=== PATIENT | female | born 1975 | race Caucasian/White ===

== ENCOUNTER → 2020-12-05 08:57 | Outpatient (CLI) | payer OTHER, SELFPAY ==
--- NOTE | ~2020-12-05 | US_ITS ---
EXAMINATION: US right upper quadrant DATE: 12/05/2020 09:28 INDICATION: Abnormal liver function tests. TECHNIQUE: Multiple grayscale and Doppler ultrasound images of the abdomen were obtained. COMPARISON: None FINDINGS: The visualized portions of the head and body of the pancreas are normal. The liver is jonathan l without focal lesion. No liver surface nodularity. There is normal flow in main portal vein. The ga llbladder is absent. The common duct is normal and measures 5 mm. IMPRESSION: 1. Normal right upper quadrant ultrasound status post cholecystectomy. Reviewed, dictated and finalized at location A.
== END ==
PROVIDERS: PCP Internal Medicine; Visit Provider Internal Medicine
DX: R74.8 Abnormal levels of other serum enzymes (principal); Z90.49 Acquired absence of other specified parts of digestive tract
CPT/HCPCS: 76705

== ENCOUNTER → 2020-12-12 12:13 | Outpatient (CLI) | payer OTHER, SELFPAY ==
--- NOTE | ~2020-12-12 | MM_ITS ---
EXAMINATION: MM screening suzanne BI w omar HISTORY: Screening mammogram TECHNIQUE: Craniocaudal and mediolateral oblique 3-D tomosynthesis images were obtained and synthetic 2-D images were generated. CAD analysis was submitted and interpreted. COMPARISON: No prior mammogram is available for comparison at this institution. BREAST PARENCHYMAL COMPOSITION: There are scattered areas of fibroglandular density. FINDINGS: There is no evidence of suspicious mass, calcification, or architectural distortion to sugg est malignancy in either breast. IMPRESSION: 1. No mammographic evidence of malignancy. 2. Recommend routine screening mammography in one year. BI-RADS Category 1: Negative Reviewed, dictated and finalized at location A.
== END ==
PROVIDERS: PCP Internal Medicine; Visit Provider Internal Medicine
DX: Z12.31 Encounter for screening mammogram for malignant neoplasm of breast (principal)
CPT/HCPCS: 77063; 77067

== ENCOUNTER → 2021-02-20 15:00 | Outpatient (CLI) | payer OTHER, SELFPAY ==
--- NOTE | ~2021-02-20 | US_ITS ---
EXAMINATION: US pelvic complete w TV EXAM DATE: 02/20/2021 15:23 INDICATION: Z30.431 - Encounter for routine checking of intrauterine ... TECHNIQUE: Pelvic transabdominal and transvaginal sonogram was performed. There are multiple graysca le and Doppler images available for interpretation. There is no prior study for comparison. FINDINGS: Uterus measures 6.4 x 3.4 x 4.0 cm, with IUD centrally located inside the endometrial cavi ty. Endometrial stripe measures 4 mm, within normal limits. There is no free pelvic fluid. Right adnexa: The ovary measures 3.7 x 3.7 x 3.6 cm, has anechoic cystic region measuring about 3 cm, likely the dominant follicle. Ovarian vascular flow confirmed. Left adnexa: The ovary is not identified. There is no adnexal mass. IMPRESSION: 1. IUD in expected position. Reviewed, dictated and finalized at location A.
== END ==
PROVIDERS: PCP Internal Medicine; Visit Provider Student in an Organized Health Care Education/Training Program
DX: Z30.431 Encounter for routine checking of intrauterine contraceptive device (principal)
CPT/HCPCS: 76830; 76856

== ENCOUNTER 2021-07-20 09:27 | Outpatient (CLI) | payer OTHER, SELFPAY ==
--- NOTE | ~2021-07-20 | MMUS_ITS ---
EXAMINATION: MM diagnostic suzanne RT w omar, US breast RT limited HISTORY: Palpable lump in the upper inner quadrant of the right breast TECHNIQUE: Craniocaudal, mediolateral, and mediolateral oblique 3-D tomosynthesis images of the right breast were performed and synthetic 2-D images were generated. CAD analysis was submitted and interp reted. High resolution limited right breast ultrasound was performed. COMPARISON: 12/12/2020 BREAST PARENCHYMAL COMPOSITION: There are scattered areas of fibroglandular density. FINDINGS: MAMMOGRAPHIC FINDINGS: There is no suspicious mass, calcification, or architectural distortion malignancy. There has be en no suspicious interval change. No mammographic correlate is identified for the reported palpable a bnormality of the right breast. ULTRASOUND: There is no evidence of focal abnormal solid or cystic mass in the vicinity of the reported palpable abnormality of concern. IMPRESSION: 1. No specific mammographic or sonographic correlate is identified for the reported palpable abnormal ity of concern. Further evaluation at this time should be based on clinical assessment. Continued fol low-up physical examination is recommended. 2. Recommend routine screening mammography. BI-RADS Category 1: Negative Reviewed, dictated and finalized at location A. IMPRESSION: 1. No specific mammographic or sonographic correlate is identified for the repo rted palpable abnormality of concern. Further evaluation at this time should be based on clinical assessment. Continued follow-up physical examination is aj mmended. 2. Recommend routine screening mammography. BI-RADS Category 1: Negative
== END 2021-07-20 09:28 ==
PROVIDERS: PCP Internal Medicine; Visit Provider Student in an Organized Health Care Education/Training Program
DX: N63.10 Unspecified lump in the right breast, unspecified quadrant (principal)
CPT/HCPCS: 76642; 77061; 77065; G0279

== ENCOUNTER → 2022-06-24 15:20 | Outpatient (CLI) | payer OTHER, SELFPAY ==
--- NOTE | ~2022-06-24 | XR_ITS ---
XR abdomen/kub 1V 06/24/2022 15:43 Indication: Urolithiasis Procedure: KUB Comparison: CT dated 06/24/2022 Findings: Kidneys are partially obscured by bowel content. No renal stones identified. Bowel gas faith yuval nonobstructive. Moderate colonic fecal loading. There is an IUD in the pelvis. No acute osseous a bnormality. Impression: 1: Nonobstructive bowel gas pattern. Reviewed, dictated and finalized at location L. INIST SUPERVISOR OUTSIDE Impression: 1: Nonobstructive bowel gas pattern.
--- NOTE | ~2022-06-24 | CT_ITS ---
EXAMINATION: CT abdomen pelvis wo con DATE: 06/24/2022 15:43 INDICATION: Urolithiasis TECHNIQUE: Computed tomography (CT) of the abdomen and pelvis was performed without intravenous contr ast. The dose-length product (DLP) was 1150.95 mGy-cm. Automated exposure control and iterative recon struction technique were employed. COMPARISON: None FINDINGS: The lung bases are clear. The heart size is normal. There is a moderate-sized sliding hiata l hernia containing ingested material. A large volume of ingested material is present in the stomach. The gallbladder is surgically absent. The liver, spleen, pancreas, and adrenal glands are normal. Th ere are two nonobstructing stones of the right kidney upper pole which measure up to 2 mm. There are three nonobstructing stones of the left kidney which measure up to 4 mm. No stones are present in the ureters or bladder. No hydronephrosis or hydroureter. No pathologically enlarged abdominal or pelvic lymph nodes are identified. No free intraperitoneal gas or evidence of bowel obstruction. There is a 6 cm cyst of the left ovary. There is a 3.4 cm cyst of the right ovary. An IUD is present in the lilian mehdi in expected position. There is moderate lumbar spondylosis at L5-S1. Also seen is moderate lower thoracic spondylosis with anterior wedging in the lower thoracic spine. There is a fat-containing umb ilical hernia. IMPRESSION: 1. Nonobstructing bilateral nephrolithiasis. 2. 6 cm simple cyst of the left ovary. Follow-up ultrasound in 12 months is recommended. 3. Moderate-sized sliding hiatal hernia. Reviewed, dictated and finalized at location F. PAPER COLUMNIST IMPRESSION: 1. Nonobstructing bilateral nephrolithiasis. 2. 6 cm simple cyst of the left ovary. Follow-up ultrasound in 12 months is rec ommended. 3. Moderate-sized sliding hiatal hernia.
== END ==
PROVIDERS: PCP Internal Medicine; Visit Provider Nurse Practitioner Adult Health
DX: N20.9 Urinary calculus, unspecified (principal); N83.202 Unspecified ovarian cyst, left side; K44.9 Diaphragmatic hernia without obstruction or gangrene
CPT/HCPCS: 74018; 74176

== ENCOUNTER 2023-09-05 09:27 | Outpatient (CLI) | payer MEDICAID, SELFPAY ==
--- NOTE | ~2023-09-05 | US_ITS ---
Pelvic ultrasound. Clinical History: Displacement IUD Technique: Realtime transabdominal and transvaginal scanning of the pelvis was performed. Color flow Doppler and Doppler spectral analysis were performed. Findings: The uterus is anteverted, and measures 8.3 x 3.7 x 4.6 cm. The endometrial stripe has a th ickness of 6 mm. IUD visualized in satisfactory position. No focal mass is identified. The right ovary measures 3.4 x 2.0 x 3.2 cm. No significant right ovarian or adnexal mass is seen. The left ovary measures 5.4 x 4.1 x 4.6 cm. No significant left ovarian or adnexal mass is seen. There is no evidence of free fluid in the cul de sac. Impression: IUD in satisfactory position. Reviewed, dictated and finalized at [facility]. Impression: IUD in satisfactory position.
== END 2023-09-05 09:28 ==
PROVIDERS: PCP Internal Medicine; Visit Provider Nurse Practitioner Obstetrics & Gynecology
DX: T83.32XA Displacement of intrauterine contraceptive device, initial encounter (principal); Y83.8 Other surgical procedures as the cause of abnormal reaction of the patient, or of later complication, without mention of misadventure at the time of the procedure
CPT/HCPCS: 76830; 76856

== ENCOUNTER 2024-08-24 10:54 | Outpatient (CLI) | payer BC, SELFPAY ==
--- NOTE | 2024-08-24 11:01 | ECG_ITS ---
Test Date: 2024-08-24 11:13:09 Measurements Intervals [place] Rate: 79 P: 25 [place]: 191 QRS: 13 QRSD: 82 T: -8 QT: 451 QTc: 520 Interpretive Statements ATRILA FLUTTER LOW QRS VOLTAGE IN PRECORDIAL LEADS [QRS DEFLECTION < 1.0 mV IN CHEST LEADS] MODERATE T-WAVE ABNORMALITY, CONSIDER ANTEROLATERAL ISCHEMIA [-0.1+ mV T-WAVE IN V3-V6] MODERATE T-WAVE ABNORMALITY, CONSIDER INFERIOR ISCHEMIA [-0.1+ mV T-WAVE IN II/aVF] No previous ECG available for comparison Electronically Signed On 08-24-2024 19:11:07 CDT by Junior Boyd
--- OUTSIDE RECORDS SUMMARY | 2024-08-25 12:12 | XMS_ITS | Encounter Summary ---
Author Organization [facility] Address [address] [place] [address] Care Team Providers Care Bakery Sales Clerk Name Role Phone Ramírez Greene MD Primary Care Provider [phone] Encounter Details Date Type Department Care Team (Late st Contact Info) Description 04/28/2024 MyChart Message Enc [address] [address] Ramírez Greene MD [address] [place] [address] [id number] Colonoscopy Social History Tobacco Use Types Packs/Day Years Used Date Smoking Tobacco: Former Smokeless Tobacco: Never Comments:stopped smoking 201 0, counseled by Dr Greene Alcohol Use Standard Drinks/Week Comments Yes 0 (1 standard drink = 0.6 oz pur e alcohol) weekends...social PHQ-2 Answer Date Recorded Patient Health Questionnaire-2 Score 4 11/30/2023 Comments No Sex and Gender Information Value Date Recorded Sex Assigned at Not on file Legal Sex Female 11:10 AM CDT Gender Identity Female 04/06/2021 9:17 PM PARTS DELIVERY DRIVER Sexual Orientation Straight 04/06/2021 9: 17 PM PARTS DELIVERY DRIVER documented as of this encounter Plan of Treatment Upcoming Encounters Date Type Department Care Team (Late st Contact Info) Description 09/19/2024 11:40 AM CDT [facility] [address] [address] [place], [place] [id number] Ramírez Greene MD [address] [address] documented as of this encounter Visit Diagnoses Not on filedocumented in this encounter Additional Health Concerns Assessment Noted Time PHQ-9 Depression Total Score: 13 11/29/ 024 7:43 AM CDT documented as of this encounter Care Teams Bakery Sales Clerk Relationship Specialty Start Date End Date Ramírez Greene MD [address] [address] PCP - General INTERNAL MEDICINE 11/18/20 documented as of this encounter
--- OUTSIDE RECORDS SUMMARY | 2024-08-25 12:12 | XMS_ITS | Encounter Summary ---
Author Organization [facility] Address [address] [place] [address] Care Team Providers Care Glass Science Engineer Name Role Phone Ramírez Greene MD Primary Care Provider [phone] Encounter Details Date Type Department Care Team (Latest Contact Info) Description 06/06/2023 MyChart Message Enc [address] [address] Ramírez Greene MD [address] [place] [address] Question about prescriptions Social History Tobacco Use Types Packs/Day Years Used Date Smoking Tobacco: Former Smokeless Tobacco: Never Comments:stopped smoking 201 0, counseled by Dr Greene Alcohol Use Standard Drinks/Week Comments Yes 0 (1 standard drink = 0.6 oz pur e alcohol) weekends...social PHQ-2 Answer Date Recorded Patient Health Questionnaire-2 Score 0 11/19/2022 Comments No Sex and Gender Information Value Date Recorded Sex Assigned at Not on file Legal Sex Female 11:10 AM CDT Gender Identity Female 04/06/2021 9:17 PM BAND TIER Sexual Orientation Straight 04/06/2021 9: 17 PM BAND TIER documented as of this encounter Plan of Treatment Upcoming Encounters Date Type Department Care Team (Late st Contact Info) Description 09/19/2024 11:40 AM CDT [facility] [address] [place] [address] Ramírez Greene MD [address] [address] documented as of this encounter Visit Diagnoses Not on filedocumented in this encounter Additional Health Concerns Assessment Noted Time PHQ-9 Depression Total Score: 3 11/20/19 23 9:52 AM CDT documented as of this encounter Care Teams Glass Science Engineer Relationship Specialty Start Date End Date Ramírez Greene MD [address] [address] PCP - General INTERNAL MEDICINE 11/18/20 documented as of this encounter
--- OUTSIDE RECORDS SUMMARY | 2024-08-25 12:12 | XMS_ITS | Encounter Summary ---
Author Organization [facility] Address [address] [place] [address] Care Team Providers Care Ocean Biologist Name Role Phone Ramírez Greene MD Primary Care Provider [phone] Encounter Details Date Type Department Care Team (Latest Contact Info) Description 02/17/2020 Iddictiont Message Enc [facility] Multispecialty Care - [facility] [address] [facility], [address] [place] [phone] Holger Hill MD [address] [place] [address] Follow Up/Update Social History Tobacco Use Types Packs/Day Years Used Date Smoking Tobacco: Former Smokeless Tobacco: Never Comments:stopped smoking 201 0 Alcohol Use Standard Drinks/Week Comments Yes 0 (1 standard drink = 0.6 oz pur e alcohol) weekends...social Comments Unknown Sex and Gender Information Value Date Recorded Sex Assigned at Not on file Legal Sex Female 11:10 AM CDT Gender Identity Female 04/06/2021 9:17 PM SENIOR TECHNICAL MANAGER Sexual Orientation Straight 04/06/2021 9: 17 PM SENIOR TECHNICAL MANAGER COVID-19 Exposure Response Date Recorded In the last month, have you been in contact with someone who was confirmed or suspected to have Coronavirus / COVID-19? No / Unsure 02/19/2020 12:48 PM CDT documented as of this encounter Plan of Treatment Upcoming Encounters Date Type Department Care Team (Late st Contact Info) Description 09/19/2024 11:40 AM CDT Office Visit [facility] Medical Group Multispecialty Care - [place] [address] [address] [place] [address] Ramírez Greene MD [address] [facility] [address] [place] [address] documented as of this encounter Visit Diagnoses Not on filedocumented in this encounter Additional Health Concerns Infection Onset Date Last Indicated Resolved Time COVID-19 Rule Out 02/18/2021 02/18/2021 02/18/2021 4:21 PM CDT COVID-19 Rule Out 03/23/2021 03/23/2021 03/25/2021 1:17 AM SENIOR TECHNICAL MANAGER COVID-19 Rule Out 01/25/2022 01/25/2022 01/25/2022 12:34 PM CDT COVID-19 Rule Out 01/25/2022 01/25/2022 01/26/2022 3:16 PM CDT documented as of this encounter Care Teams Ocean Biologist Relationship Specialty Start Date End Date Ramírez Greene MD [address] [address] PCP - General INTERNAL MEDICINE 11/18/20 documented as of this encounter
--- OUTSIDE RECORDS SUMMARY | 2024-08-25 12:12 | XMS_ITS | Encounter Summary ---
Author Organization [facility] Address [address] [place] [address] Care Team Providers Care Wildlife Conservation Professor Name Role Phone Ramírez Greene MD Primary Care Provider [phone] Encounter Details Date Type Department Care Team (Late st Contact Info) Description 12/29/2021 [employer] Message [facility] - [place] [address] [address] [place], [place] [phone] [facility] Provider Test result Social History Tobacco Use Types Packs/Day Years Used Date Smoking Tobacco: Former Smokeless Tobacco: Never Comments:stopped smoking 201 0, counseled by Dr Greene Alcohol Use Standard Drinks/Week Comments Yes 0 (1 standard drink = 0.6 oz pur e alcohol) weekends...social PHQ-2 Answer Date Recorded PHQ-2 Score - If the patient scores above 3, please move on to questions 3-9 2 11/18/2021 Comments No Sex and Gender Information Value Date Recorded Sex Assigned at Not on file Legal Sex Female 11:10 AM CDT Gender Identity Female 04/06/2021 9:17 PM COORDINATOR SKILL TRAINING PROGRAM Sexual Orientation Straight 04/06/2021 9: 17 PM COORDINATOR SKILL TRAINING PROGRAM documented as of this encounter Plan of Treatment Upcoming Encounters Date Type Department Care Team (Late Contact Info) Description 09/19/2024 11:40 AM CDT Office Visit [facility] Multispecialty [facility] [place] [address] [address] [place] [address] Ramírez Greene MD [address] [place] [address] documented as of this encounter Visit Diagnoses Not on filedocumented in this encounter Additional Health Concerns Infection Onset Date Last Indicated Resolved Time COVID-19 Rule Out 01/25/2022 01/25/2022 01/25/2022 12:34 PM CDT COVID-19 Rule Out 01/25/2022 01/25/2022 01/26/2022 3:16 PM CDT Assessment Noted Time PHQ-9 Depression Total Score: 1 07/21/19 22 2:35 PM CDT documented as of this encounter Care Teams Wildlife Conservation Professor Relationship Specialty Start Date End Date Ramírez Greene MD [address] [facility] [address] [place] [address] PCP - General INTERNAL MEDICINE 11/18/20 documented as of this encounter
--- OUTSIDE RECORDS SUMMARY | 2024-08-25 12:12 | XMS_ITS | Encounter Summary ---
Author Organization [facility] Address [address] [place] [address] Care Team Providers Care Journalism Internship Name Role Phone Ramírez Greene MD Primary Care Provider [phone] Encounter Details Date Type Department Care Team (Late st Contact Info) Description 10/12/2022 MyChart Message Enc [facility] Medical Group Multispecialty Care - [place] [address] [address] [place] [address] Ramí[place] [address] [place] [address] [place], [place] [id number] Blood Type Social History Tobacco Use Types Packs/Day Years [...] CDT Gender Identity Female 04/06/2021 9:17 PM MOTION PICTURE COMMENTATOR Sexual Orientation Straight 04/06/2021 9: 17 PM MOTION PICTURE COMMENTATOR COVID-19 Exposure Response Date Recorded In the last 10 days, have yo u been in contact with someone who was confirmed or suspected to have Coronavirus/COVID-19? No / Unsure 09/22/2022 2:00 PM CDT documented as of this encounter Plan of Treatment Upcoming Encounters Date Type Department Care Team (Late st Contact Info) Description 09/19/2024 11:40 AM CDT Office Visit [facility] Medical Group Multispecialty Care - [place] [address] [address] [place] [address] Ramírez Greeen MD [address] [place] [address] documented as of this encounter Visit Diagnoses Not on filedocumented in this encounter Additional Health Concerns Assessment Noted Time PHQ-9 Depression Total Score: 1 07/21/19 22 2:35 PM CDT documented as of this encounter Care Teams Journalism Internship Relationship Specialty Start Date End Date Ramírez Greene MD [address] [place] [address] PCP - General INTERNAL MEDICINE 11/18/20 documented as of this encounter
--- OUTSIDE RECORDS SUMMARY | 2024-08-25 12:12 | XMS_ITS | Encounter Summary ---
Author Organization [facility] Address [address] [place] [address] Care Team Providers Care Adjunct Professor Of Law Name Role Phone Ramírez Greene MD Primary Care Provider [phone] Encounter Details Date Type Department Care Team (Latest Contact Info) Description 07/27/2023 MyChart Message Enc [place] [address] [address] [place] [address] Ramírez Greene MD 1188 [facility] [address] [place], [place] [phone] Follow-up # to hopefully help with your dad's placement in a memory custodial Social History Tobacco Use Types Packs/Day Years Used Date Smoking Tobacco: Former Smokeless Tobacco: Never Comments:stopped smoking 201 0, counseled by Dr Greene Alcohol Use Standard Drinks/Week Comments Yes 0 (1 standard drink = 0.6 oz pur e alcohol) weekends...social PHQ-2 Answer Date Recorded Patient Health Questionnaire-2 Score 5 07/26/2023 Comments No Sex and Gender Information Value Date Recorded Sex Assigned at Not on file Legal Sex Female 11:10 AM CDT Gender Identity Female 04/06/2021 9:17 PM NETWORK COORDINATOR Sexual Orientation Straight 04/06/2021 9: 17 PM NETWORK COORDINATOR documented as of this encounter Plan of Treatment Upcoming Encounters Date Type Department Care Team (Late st Contact Info) Description 09/19/2024 11:40 AM CDT Office [facility] [place] [address] [facility] [address] [place] [address] Ramírez Greeen MD [address] [place] [address] documented as of this encounter Visit Diagnoses Not on filedocumented in this encounter Additional Health Concerns Assessment Noted Time PHQ-9 Depression Total Score: 15 07/25/ 024 4:35 PM CDT documented as of this encounter Care Teams Adjunct Professor Of Law Relationship Specialty Start Date End Date Ramírez Greene MD [address] [place] [address] PCP - General INTERNAL MEDICINE 11/18/20 documented as of this encounter
--- OUTSIDE RECORDS SUMMARY | 2024-08-25 12:12 | XMS_ITS | Encounter Summary ---
Author Organization [facility] Address [address] [place] [address] Care Team Providers Care Regulatory Affairs Portfolio Leader Name Role Phone Ramírez Greene MD Primary Care Provider [phone] Encounter Details Date Type Department Care Team (Late st Contact Info) Description 12/29/2021 Meineng [employer] Message Enc [facility] [place] [address] [place] [id number] [facility] Provider Results Social History Tobacco Use Types Packs/Day Years [...] CDT Gender Identity Female 04/06/2021 9:17 PM BANKING PIN ADJUSTER Sexual Orientation Straight 04/06/2021 9: 17 PM BANKING PIN ADJUSTER documented as of this encounter Plan of Treatment Upcoming Encounters Date Type Department Care Team (Late Contact Info) Description 09/19/2024 11:40 AM CDT Office [facility] [place] [address] [address] [place] [address] Ramírez Greene MD [address] [place] [address] documented as of this encounter Visit Diagnoses Not on filedocumented in this encounter Additional Health Concerns Infection Onset Date Last Indicated Resolved Time COVID-19 Rule Out 01/25/2022 01/25/2022 01/25/2022 12:34 PM CDT COVID-19 Rule Out 01/25/2022 01/25/2022 01/26/2022 3:16 PM CDT Assessment Noted Time PHQ-9 Depression Total Score: 1 07/21/19 22 2:35 PM CDT documented as of this encounter Care Teams Regulatory Affairs Portfolio Leader Relationship Specialty Start Date End Date Ramírez Greene MD [facility] [address] [place] [address] PCP - General INTERNAL MEDICINE 11/18/20 documented as of this encounter
--- OUTSIDE RECORDS SUMMARY | 2024-08-25 12:12 | XMS_ITS | Patient Health Record ---
Author Organization [facility] Billing Info Address [address] [place] [address] [place] [address] Care Team Providers Care Gatehouse Attendant Name Role Phone INES CLARKE Unavailable [phone] Allergies Allergen (clinical drug ingredient) Drug/Non Drug Allergy documented on EMR Reaction Allergy Type Onset Date Status moxifloxacin Avelox Unknown Drug Allergy Acti ve Septra DS Unknown Drug Allergy Active Reason For Referral No Information Medications Medication SIG (Take, Route, Frequency, Duration) Notes Start Date End Date Status Microgestin FE 1.5/30 1.5-30 MG-MCG 1 tablet Orally Once a day for 90 days Active Paxil 40 MG 1 tablet in the morning Orally Once a day for 90 days 09/03/2014 Active Provigil 200 MG 1 tab(s) Orally BID, PRN Verbal order per provider 02/27/2016 Active Prilosec 20 MG 1 capsule Orally Once a day for 90 Active Xyrem 500 MG/ML 6 ml at bedtime Orally Twice a day ( at bedtime) 4 mg Active Vitamin D 2000 UNIT 1 tablet Orally Once a day Active Cefdinir 300 MG 1 capsule Orally every 12 hrs Not-Taking Amlodipine Besylate 10 MG 1 tablet Orally Once a day Not-Taking Naproxen 500 MG 1 tablet Orally twice a day with meals for 10 days 02/16/2017 Not-Taking Losartan Potassium-HCTZ 50-12.5 MG 1 tablet Orally Once a day in the morning for 90 days 11/08/2016 Active Immunizations Vaccine Route Administration Date Status Comme nts zFLU 4V (FLUZONE QUAD), 3 YRS+, NO PRES - ALL PAYORS IM Intramuscular 02/10/2016 Administered Social History Tobacco Use: Social History Observation Description Date Details (start date - stop date) Former Smoker NA - NA Tobacco Status: Question Answer Notes Patient is a former smoker Problems Problem Type SNOMED Code ICD Code Onset Dates Problem Status W/U Status Risk Notes Problem 140640971 Obesity, unspecified (E66.9) Active confirmed Problem 926935484 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 I regard upper nl TSH as 3, rena in pt with sx and Abs. Need see if evid of Hashimotos that would lower threshold for tx with LT4. Problem 661005691 Depression with anxiety (F41.8) Active confirmed Problem 98845227 Vitamin D deficiency (E55.9) Active confirmed Problem 46703083 HTN (hypertension), benign (I10) Active confirmed Problem 51855209 Irritable bowel syndrome (K58.9) Active confirmed Problem 24602123 Obstructive sleep apnea (G47.33) Active confirmed Problem 9993601 Migraine with aura (G43.109) Active confirmed Problem 11457548 Anxiety (F41.9) Active confirmed Problem 879793265 Chronic GERD (K21.9) Active confirmed Plan Of Treatment Pending Test Test Name Order Date CULTURE URINE(CENT-UR) 05/06/2015 Insurance Providers Payer Name Payer Address Payer Phone Subscriber Number Group Number Insured Name Patient Relationship to Insured Coverage Start Date Coverage End Date [id number] OOS PPO 1 [facility] LUIS EDUARDO [address] [place], [place] [id number] Andrés Manzanares Spouse - patient is the spouse of the insured 7 6 Medications Administered Medication Instructions Date of Administration Dosage Notes Ketorolac (Toradol) 02/16/2017 60 mg NDC 0 [phone] Medical (General) History Medical History History ICD Code SINAN (obstructive sleep apnea) 327.23 Obesity 278.00 Vitamin D deficiency 268.9 Narcolepsy and cataplexy 347.01 IBS (irritable bowel syndrome) 564.1 GERD (gastroesophageal reflux disease) 5 30.81 Anxiety and depression 300.4 Migraine with and without aura Gestational diabetes HTN (hypertension), benign I10 thyroid problems kidney stones precancerous polyp Surgical History Surgery Date(Month/Year) laperoscopy kidney stone removal 09/2009 cholecystectomy lithotripsy 2011 hernia repair Hospitalization History Reason Date(Month/Year) see above surgery list
--- OUTSIDE RECORDS SUMMARY | 2024-08-25 12:12 | XMS_ITS | Encounter Summary ---
Author Organization [facility] Address [address] [place] [address] Care Team Providers Care Exerciser Horse Name Role Phone Ramírez Greene MD Primary Care Provider [phone] Encounter Details Date Type Department Care Team (Latest Contact Info) Description 12/26/2020 MyChart Message Enc [facility] Medical [facility] Care - [place] [address] [place] [address] [address] [place] [address] Ramírez Greene MD 1188 [facility] 157 [place], [place] [id number] RE:medication question Social History Tobacco Use Types Packs/Day Years Used Date Smoking Tobacco: Former Smokeless Tobacco: Never Comments:stopped smoking 201 0 Alcohol Use Standard Drinks/Week Comments Yes 0 (1 standard drink = 0.6 oz pur e alcohol) weekends...social PHQ-2 Answer Date Recorded PHQ-2 Score - If the patient scores above 3, please move on to questions 3-9 2 12/16/2020 Comments No Sex and Gender Information Value Date Recorded Sex Assigned at Not on file Legal Sex Female 11:10 AM CDT Gender Identity Female 04/06/2021 9:17 PM GOAT DRIVER Sexual Orientation Straight 04/06/2021 9: 17 PM GOAT DRIVER COVID-19 Exposure Response Date Recorded In the last month, have you been in contact with someone who was confirmed or suspected to have Coronavirus / COVID-19? No / Unsure 12/16/2020 2:18 PM CDT documented as of this encounter Plan of Treatment Upcoming Encounters Date Type Department Care Team (Late st Contact Info) Description 09/19/2024 11:40 AM CDT Office Visit [facility] Medical [facility] [place] [address] [address] [place] [address] Ramírez Greene MD [address] [address] documented as of this encounter Visit Diagnoses Not on filedocumented in this encounter Additional Health Concerns Infection Onset Date Last Indicated Resolved Time COVID-19 Rule Out 02/18/2021 02/18/2021 02/18/2021 4:21 PM CDT COVID-19 Rule Out 03/23/2021 03/23/2021 03/25/2021 1:17 AM GOAT DRIVER COVID-19 Rule Out 01/25/2022 01/25/2022 01/25/2022 12:34 PM CDT COVID-19 Rule Out 01/25/2022 01/25/2022 01/26/2022 3:16 PM CDT Assessment Noted Time PHQ-9 Depression Total Score: 2 12/17/19 21 2:34 PM CDT documented as of this encounter Care Teams Exerciser Horse Relationship Specialty Start Date [place] Date [place] [address] [place] [address] PCP - General INTERNAL MEDICINE 11/18/20 documented as of this encounter
--- OUTSIDE RECORDS SUMMARY | 2024-08-25 12:12 | XMS_ITS | Encounter Summary ---
Author Organization [facility] Address [address] [place] [address] Care Team Providers Care Title Insurance Examiner Name Role Phone Ramírez Greene MD Primary Care Provider [phone] Encounter Details Date Type Department Care Team (Late st Contact Info) Description 02/02/2021 Kumbuyat Message Enc [facility] Medical [facility]pecialty Care - [facility], [address] [place] [address] Holger Hill MD [address] [place] [address] RE: Question Social History Tobacco Use Types Packs/Day Years [...] CDT Gender Identity Female 04/06/2021 9:17 PM CAGE/VAULT SUPERVISOR Sexual Orientation Straight 04/06/2021 9: 17 PM CAGE/VAULT SUPERVISOR COVID-19 Exposure Response Date Recorded In the last month, have you been in contact with someone who was confirmed or suspected to have Coronavirus / COVID-19? No / Unsure 01/19/2021 2:21 PM CDT documented as of this encounter Plan of Treatment Upcoming Encounters Date Type Department Care Team (Late st Contact Info) Description 09/19/2024 11:40 AM CDT Office Visit [facility] [place] [address] [address] [place] [address] Ramírez Greene MD [address] [address] documented as of this encounter Visit Diagnoses Not on filedocumented in this encounter Additional Health Concerns Infection Onset Date Last Indicated Resolved Time COVID-19 Rule Out 02/18/2021 02/18/2021 02/18/2021 4:21 PM CDT COVID-19 Rule Out 03/23/2021 03/23/2021 03/25/2021 1:17 AM CAGE/VAULT SUPERVISOR COVID-19 Rule Out 01/25/2022 01/25/2022 01/25/2022 12:34 PM CDT COVID-19 Rule Out 01/25/2022 01/25/2022 01/26/2022 3:16 PM CDT Assessment Noted Time PHQ-9 Depression Total Score: 2 12/17/19 21 2:34 PM CDT documented as of this encounter Care Teams Title Insurance Examiner Relationship Specialty Start Date End Date Ramí[place] [address] [place] [address] PCP - General INTERNAL MEDICINE 11/18/20 documented as of this encounter
--- OUTSIDE RECORDS SUMMARY | 2024-08-25 12:12 | XMS_ITS | Encounter Summary ---
Author Organization [facility] Address [address] [place] [address] Care Team Providers Care Sales Promotion Coordinator Name Role Phone Ramírez Greene MD Primary Care Provider [phone] Encounter Details Date Type Department Care Team (Latest Contact Info) Description 12/26/[address] [facility] Medical [facility]pecialty Care - [place] [address] [place] [address] [address] [place] [address] Ramírez Greene MD 1188 [facility] 157 [place], [place] [phone] RE: Medication Questions Social History Tobacco Use Types Packs/Day Years [...] CDT Gender Identity Female 04/06/2021 9:17 PM DENTAL SERVICE CHIEF Sexual Orientation Straight 04/06/2021 9: 17 PM DENTAL SERVICE CHIEF COVID-19 Exposure Response Date Recorded In the last month, have you been in contact with someone who was confirmed or suspected to have Coronavirus / COVID-19? No / Unsure 12/16/2020 2:18 PM CDT documented as of this encounter Plan of Treatment Upcoming Encounters Date Type Department Care Team (Late st Contact Info) Description 09/19/2024 11:40 AM CDT Office Visit [facility] - [place] [address] [address] [place] [address] Ramírez Greene MD [address] [address] documented as of this encounter Visit Diagnoses Not on filedocumented in this encounter Additional Health Concerns Infection Onset Date Last Indicated Resolved Time COVID-19 Rule Out 02/18/2021 02/18/2021 02/18/2021 4:21 PM CDT COVID-19 Rule Out 03/23/2021 03/23/2021 03/25/2021 1:17 AM DENTAL SERVICE CHIEF COVID-19 Rule Out 01/25/2022 01/25/2022 01/25/2022 12:34 PM CDT COVID-19 Rule Out 01/25/2022 01/25/2022 01/26/2022 3:16 PM CDT Assessment Noted Time PHQ-9 Depression Total Score: 2 12/17/19 21 2:34 PM CDT documented as of this encounter Care Teams Sales Promotion Coordinator Relationship Specialty Start Date End Date [place] [address] [place] [address] PCP - General INTERNAL MEDICINE 11/18/20 documented as of this encounter
--- OUTSIDE RECORDS SUMMARY | 2024-08-25 12:12 | XMS_ITS | Referral Summary ---
Author Organization [address] Address [address] [place] [address] Care Team Providers Care Sales Expert Home Theater Name Role Phone Ramírez Greene MD Primary Care Provider [phone] Encounters Date Type Department Care Team Description 07/03/2024 Telephone [facility] [address] [place] [address] [address] [place] [address] Meagan Ulloa MD Prior Auth (Sodium Oxybate 500MG/ML solution) 06/27/2024 Telephone [facility] Medical [facility] Pulmonology [address] [place] [address] [place] [address] Meagan Ulloa MD 06/01/2024 Telephone [facility] [address] [place] [address] [address] [place] [address] Meagan Ulloa MD Med Refill (Pharmacy called into the office) from Last 3 Months Allergies Active Allergy Reactions Criticality Noted Date Comments Moxifloxacin Palpitations Low 01/04/2020 Sulfamethoxazole-Trimethoprim Rash Medium 2019 Medications ergocalciferol, vitamin D2, 50 mcg (2,000 unit) tablet Take by mouth Active losartan-hydroC HLOROthiazide (HYZAAR) 50-12.5 mg per tablet Take 1 tablet by mouth daily 05/29/2020 Active modafiniL (PROVIGIL) 200 mg tablet Take 1 tablet (200 mg total) by mouth daily Active omeprazole (PriLOSEC) 20 mg capsule Take 1 capsule (20 mg total) by mouth nightly 06/09/2020 Active PARoxetine (PAXIL) 40 mg tablet 06/01/2020 Active cetirizine (ZyrTEC) 10 mg tablet Take 1 tablet (10 mg total) by mouth daily 10/24/2021 Active cholecalciferol (VITAMIN D-3) 2000 unit tablet Take by mouth Active sodium oxybate 500 mg/mL solution Take 3.75 g by mouth 2 (two) times a day 450 mL 07/06/2024 Active Active Problems Problem Noted Date Diagnosed Date 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 Parasomnia 07/02/2020 Overview (07/02/2020): Stable. Anxiety 07/02/2020 Overview (07/02/2020): Contributing to patient's sleep disturbances. Restless leg 07/02/2020 Overview (07/02/2020): Not on treatment. Essential hypertension 07/02/2020 Primary narcolepsy with cataplexy 07/02/2020 BMI 36.0-36.9,adult 01/04/2020 Left hip pain 01/04/2020 Sacroiliac joint dysfunction 01/04/2020 Social History Tobacco Use Types Packs/Day Years Used Date Smoking Tobacco: Former Cigarettes Q uit: 11/05/2010 Smokeless Tobacco: Never Personal Safety Answer Date Recorded Getting School Help Needed Not on file 04/21 Comments Unknown Sex and Gender Information Value Date Recorded Sex Assigned at Not on file Legal Sex Female 8:16 AM MIRROR INSTALLER Gender Identity Not on file Sexual Orientation Not on file Last Filed Vital Signs Vital Sign Reading Time Taken Comments Blood Pressure 104/64 11/23/2023 3:07 PM CDT Pulse 101 11/23/2023 3:07 PM CDT Temperature 37 C (98.6 F) 11/23/2023 3:07 PM CDT Respiratory Rate 18 11/23/2023 3:07 PM CDT Oxygen Saturation 97% 11/23/2023 3:07 PM CDT Inhaled Oxygen Concentration - - Weight 131.5 kg (290 lb) 11/23/2023 3:07 PM CDT Height 170.2 cm (5' 7 ) 11/23/2023 3:07 PM CDT Body Mass Index 45.42 11/23/2023 3:07 PM CDT Plan of Treatment Not on file Insurance IDPA Care Teams Sales Expert Home Theater Relationship Specialty Start Date End Date Ramírez Greene MD [address] [place], [place] [id number] PCP - General Internal Medicine 11/11/21
--- OUTSIDE RECORDS SUMMARY | 2024-08-25 12:12 | XMS_ITS | Encounter Summary ---
Author Organization [facility] Address [address] [place] [address] Care Team Providers Care Winery Cellar Hand Name Role Phone Ramírez Greene MD Primary Care Provider [phone] Encounter Details Date Type Department Care Team (Latest Contact Info) Description 03/31/2021 Joss Technologyt Message Enc [facility] Medical Group Multispecialty Care - [place] [address] [place] [address] [address] [place] [address] Ramírez Greene MD 1188 [facility] [address] [place], [place] [id number] Urology Referral Social History Tobacco Use Types Packs/Day Years [...] CDT Gender Identity Female 04/06/2021 9:17 PM LEAD ELECTRICAL ENGINEER Sexual Orientation Straight 04/06/2021 9: 17 PM LEAD ELECTRICAL ENGINEER COVID-19 Exposure Response Date Recorded In the last month, have you been in contact with someone who was confirmed or suspected to have Coronavirus / COVID-19? No / Unsure 04/01/2021 9:16 AM LEAD ELECTRICAL ENGINEER documented as of this encounter Plan of Treatment Upcoming Encounters Date Type Department Care Team (Late st Contact Info) Description 09/19/2024 11:40 AM CDT Office Visit [facility] Medical Group Multispecialty [facility] [place] [address] [address] [place] [address] Ramírez Greene MD [address] [address] documented as of this encounter Visit Diagnoses Not on filedocumented in this encounter Additional Health Concerns Infection Onset Date Last Indicated Resolved Time COVID-19 Rule Out 01/25/2022 01/25/2022 01/25/2022 12:34 PM CDT COVID-19 Rule Out 01/25/2022 01/25/2022 01/26/2022 3:16 PM CDT Assessment Noted Time PHQ-9 Depression Total Score: 2 12/17/19 21 2:34 PM CDT documented as of this encounter Care Teams Winery Cellar Hand Relationship Specialty Start Date End Date Ramírez Greene MD [address] [place] [address] PCP - General INTERNAL MEDICINE 11/18/20 documented as of this encounter
--- OUTSIDE RECORDS SUMMARY | 2024-08-25 12:12 | XMS_ITS | Encounter Summary ---
Author Organization [facility] Address [address] [place] [address] Care Team Providers Care Child Center Assistant Name Role Phone Ramírez Greene MD Primary Care Provider [phone] Encounter Details Date Type Department Care Team (Late st Contact Info) Description 01/27/2022 ModiFace Message Enc [facility] [place] [address] [address] [place] [address] [facility] Provider strep culture Social History Tobacco Use Types Packs/Day Years [...] CDT Gender Identity Female 04/06/2021 9:17 PM MUSIC COORDINATOR Sexual Orientation Straight 04/06/2021 9: 17 PM MUSIC COORDINATOR documented as of this encounter Plan of Treatment Upcoming Encounters Date Type Department Care Team (Late Contact Info) Description 09/19/2024 11:40 AM CDT Office Visit [facility] Medical [facility] Multispecialty [facility] [place] [address] [address] [place] [address] Ramírez Greene MD [address] [place] [address] documented as of this encounter Visit Diagnoses Not on filedocumented in this encounter Additional Health Concerns Assessment Noted Time PHQ-9 Depression Total Score: 1 07/21/19 22 2:35 PM CDT documented as of this encounter Care Teams Child Center Assistant Relationship Specialty Start Date End Date Ramírez Greene MD 1188 [facility] [address] [place] [address] PCP - General INTERNAL MEDICINE 11/18/20 documented as of this encounter
--- OUTSIDE RECORDS SUMMARY | 2024-08-25 12:12 | XMS_ITS | Encounter Summary ---
Author Organization [facility] Address [address] [place] [address] Care Team Providers Care Doorkeeper Name Role Phone Ramírez Greene MD Primary Care Provider [phone] Encounter Details Date Type Department Care Team (Latest Contact Info) Description 12/02/2022 MyChart Message Enc [facility] [place] [address] [address] [place] [address] Ramírez Greene MD [address] [place] [address] [place], [place] [phone] Rosacea medication Social History Tobacco Use Types Packs/Day Years [...] CDT Gender Identity Female 04/06/2021 9:17 PM PET WALKER Sexual Orientation Straight 04/06/2021 9: 17 PM PET WALKER documented as of this encounter Plan of Treatment Upcoming Encounters Date Type Department Care Team (Late st Contact Info) Description 09/19/2024 11:40 AM CDT Office Visit [facility] Medical [facility]pec[facility]ty [facility] - [address] [place] [address] Ramírez Greene MD [address] [address] documented as of this encounter Visit Diagnoses Not on filedocumented in this encounter Additional Health Concerns Assessment Noted Time PHQ-9 Depression Total Score: 3 11/20/19 23 9:52 AM CDT documented as of this encounter Care Teams Doorkeeper Relationship Specialty Start Date End Date Ramírez Greene MD [address] [address] PCP - General INTERNAL MEDICINE 11/18/20 documented as of this encounter
--- OUTSIDE RECORDS SUMMARY | 2024-08-25 12:12 | XMS_ITS | Clinical Summary ---
Author Organization [facility] Address [address] [place] [address] Care Team Providers Care Vp Of Global Marketing Name Role Phone Ramírez Greene MD Primary Care Provider [phone] Allergies Active Allergy Reactions Criticality Noted Date Comments Moxifloxacin Tachycardia 01/04/2020 Sulfamethoxazole-Trimethoprim Rash Low 2019 Medications XYREM 500 MG/ML Solution Take 4 g by mouth 2 (two) times daily. 12/12/19 20 Active Cholecalciferol (VITAMIN D) 50 MCG (1999) Tab Active cetirizine (ZYRTEC) 10 MG tabletIndication s:Environmental and seasonal allergies Take 1 tablet (10 mg total) by mouth daily. 30 tablet 5 11/30/19 24 Active buPROPion XL (WELLBUTRIN XL) 300 MG 24 hr tabletIndication s:Mild episode of recurrent major depressive disorder,Anxiety Take 1 tablet (300 mg total) by mouth daily. 90 tablet 1 06/01/19 25 Active metFORMIN (GLUCOPHAGE) 500 MG tabletIndication s:Morbid obesity (CMS/HCC) Take one tablet daily with breakfast for the first two weeks then change to two tablets daily thereafter with food. 180 tablet 1 06/30/19 25 Active PARoxetine (PAXIL) 40 MG tabletIndication s:Mild episode of recurrent major depressive disorder,Anxiety Take 1 tablet (40 mg total) by mouth every morning. 90 tablet 1 06/01/19 25 Active losartan-hydroCH LOROthiazide (HYZAAR) 50-12.5 MG tabletIndication s:Essential hypertension Take 1 tablet by mouth daily. 90 tablet 3 06/01/19 25 Active metroNIDAZOLE (METROCREAM) 0.75 % creamIndications :Rosacea Apply topically 2 (two) times daily. 45 g 4 06/01/19 25 Active omeprazole (PRILOSEC) 40 MG capsuleIndicatio ns:Gastroesophag eal reflux disease without esophagitis TAKE 1 CAPSULE(40 MG) BY MOUTH DAILY 90 capsule 07/31/19 25 Active omeprazole (PRILOSEC) 40 MG capsuleIndicatio ns:Gastroesophag eal reflux disease without esophagitis Take 1 capsule (40 mg total) by mouth daily. 90 capsule 06/01/19 25 025 Discontinued Active Problems Problem Noted Date Diagnosed Date Gastroesophageal reflux disease without esophagi tis 07/20/2021 Screening for colon cancer 02/09/2021 Overview (02/09/2021): Added automatically from request for surgery [id number] Essential hypertension 07/02/2020 Anxiety 07/02/2020 Overview (11/18/2020): Contributing to patient's sleep disturbances. SINAN (obstructive sleep apnea) 07/02/2020 Overview (11/18/2020): Patient to continue CPAP at 9 cm of water. Parasomnia 07/02/2020 Overview (11/18/2020): Stable. Primary narcolepsy with cataplexy (HHS/HCC) 06/23 Restless leg 07/02/2020 Overview (11/18/2020): Not on treatment. Left hip pain 01/04/2020 Sacroiliac joint dysfunction 01/04/2020 BMI 36.0-36.9,adult 01/04/2020 Resolved Problems Problem Noted Date Diagnosed Date Resolved Date Primary narcolepsy without c ataplexy (HHS/HCC) 01/04/2020 07/20/2021 Encounters Date Type Department Care Team Description 07/04/2024 Scan [facility] SRVCS Scanned, Doc Med Group 06/08/2024 Telephone [facility] Medical [facility] Multispecialty Care - [place] [address] [address] [facility] [address] [place] [address] Ramírez Greene MD Prior Authorization (Metformin ) 06/01/2024 2:20 PM SAW STRAIGHTENER Office Visit [facility] Medical [facility] - [place] [address] [facility] [address] [place] [address] Ramírez Greene MD Follow Up (Environmental allergies); Narcolepsy (With hx of cataplexy ); Hypertension; GERD; Anxiety; Depression; Vitamin D Deficiency; IBS (diarrhea); Restless Leg Syndrome; Weight Problem 06/01/2024 Travel from Last 3 Months Immunizations Immunization Administration Dates Next Due Fluzone (IIV3, Trivalent, 0. 5 ML Prefilled Syringe) 06/01/2024 Fluzone 6 Months+ Quad (0.5 mL Prefilled Syringe) 02/17/2022,01/09/2021,03/01/2020 PFIZER COVID-19 (ORIGINAL FO RMULATION, PURPLE CAP) mRNA, LNP-S, PF, 30 MCG/0.3 ML DOSE 03/12/2021,07/25/2020,07/04/2020 Tdap (Adacel) 11/18/2020 Family History Medical History Relation Comments Dementia Father Stent Cardiac Father Stroke Father Stroke Maternal Grandfather Colon Cancer Maternal Grandmother 60s Anxiety Mother Hypertension Mother Relation Status Comments Father Alive Maternal Grandfather Maternal Grandmother Mother Alive Social History Tobacco Use Types Packs/Day Years Used Date Smoking Tobacco: Former Smokeless Tobacco: Never Tobacco Cessation:Counseling Given: Yes Comments:stopped smoking 2009, counseled by Dr Greene Alcohol Use Standard Drinks/Week Comments Yes 0 (1 standard drink = 0.6 oz pur e alcohol) weekends...social PHQ-2 Answer Date Recorded Patient Health Questionnaire-2 Score 4 06/01/2024 Comments No Sex and Gender Information Value Date Recorded Sex Assigned at Not on file Legal Sex Female 11:10 AM CDT Gender Identity Female 04/06/2021 9:17 PM SAW STRAIGHTENER Sexual Orientation Straight 04/06/2021 9: 17 PM SAW STRAIGHTENER Last Filed Vital Signs Vital Sign Reading Time Taken Comments Blood Pressure 124/89 06/01/2024 2:28 PM SAW STRAIGHTENER Pulse 84 06/01/2024 2:28 PM SAW STRAIGHTENER Temperature 36.8 C (98.2 F) 06/01/2024 2:28 PM SAW STRAIGHTENER Respiratory Rate 18 06/01/2024 2:28 PM SAW STRAIGHTENER Oxygen Saturation 98% 06/01/2024 2:28 PM SAW STRAIGHTENER Inhaled Oxygen Concentration - - Weight 125.9 kg (277 lb 9.6 oz) 06/01/2024 2:28 PM SAW STRAIGHTENER Height 167.6 cm (5' 6 ) 06/01/2024 2:28 PM SAW STRAIGHTENER Body Mass Index 44.81 06/01/2024 2:28 PM SAW STRAIGHTENER Plan of Treatment Upcoming Encounters Date Type Department Care Team (Late st Contact Info) Description 09/19/2024 11:40 AM CDT Office Visit [facility] Medical Group Multispecialty Care [place] [address] [address] [place] [address] Ramí[place] [address] [place] [address] [address] [place] [address] Health Maintenance Due Date Last Done Comments Cervical Cancer Screening Pap Smear (Age 30 to 64) Every 3 Years 1977 Hepatitis B Vaccines (1 of 3 - 19+ 3-dose series) 1996 COVID-19 Vaccine ( season) 2023 03/12/2021, 07/25/2020, 07/04/2020 Annual Physical 11/29/2024 11/30/2023, 10/24, 11/18/2021, Additional history exists Mammogram Screening 09/11/2025 09/12/2023, 07/20/2021, 12/12/2020 Cervical Cancer Screening Pap with HPV Testing (Age 30 to 64) Every 5 Years 02/06/2026 02/06/2021 Cervical Cancer Screening with HPV 02/06/2026 DTaP, Tdap and Td Vaccines (2 - Td or Tdap) 11/18/2030 11/18/2020 Colorectal Cancer Screening Colonoscopy (10 Years) 04/13/2031 04/13/2021 Hepatitis C Completed 11/18/2020 PHQ-2 (Physician Sun'Aq) Completed 06/01/2024 Meningococcal B Vaccine Aged Out No l onger eligible based on patient's age to complete this topic Meningococcal Vaccine Aged Out No pipo olaf eligible based on patient's age to complete this topic Pneumococcal Vaccine: Pediatrics (0 to 5 Years) and At-Risk Patients (6 to 49 Years) Aged Out No longer eligible based on patient's age to complete this topic RSV Immunizations Under 20 Months Aged Out No longer eligible based on patient's age to complete this topic Procedures Procedure Name Priority Date/Time Associated Diagnosis Comments CBC W/DIFF AUTOMATED Routine 06/01/2024 2:55 PM SAW STRAIGHTENER Morbid obesity (CMS/HCC) COMPREHENSIVE METABOLIC PANEL Routine 06/01/2024 2:55 PM SAW STRAIGHTENER Morbid obesity (CMS/HCC) HEMOGLOBIN, GLYCOSYLATED Routine 06/01/2024 2:55 PM SAW STRAIGHTENER Morbid obesity (CMS/HCC) COLLECTION VENOUS BLOOD VENIPUNCTURE Routine 06/01/2024 2:53 PM SAW STRAIGHTENER Morbid obesity MAMMOGRAM GENERIC (SCAN ORDER) 09/12/2023 OUTSIDE CYTOPATH CERV/VAG INTERPRET (PAP) 02/06/2021 HEPATITIS C ANTIBODY Routine 11/18/2020 2:52 PM CDT Encounter for annual physical exam Encounter to establish care Encounter for general health examination Encounter for hepatitis C screening test for low risk patient from Last 3 Months or Most Recently Relevant to Health Maintenance Results * (ABNORMAL) HEMOGLOBIN, GLYCOSYLATED (06/01/2024 2:55 PM SAW STRAIGHTENER) HGB A1C 5.4 4.5 - 6.2 % 06/01/2024 7:44 PM SAW STRAIGHTENER MG-SCOTT READ ESTIMATED AVG GLUCOSE 108(H) 74 - 106 MG/DL 06/01/2024 7:44 PM SAW STRAIGHTENER MG-SCOTT READ 06/01/2024 2:55 PM SAW STRAIGHTENER Ramírez Greene MD LABORATORY Final Result [facility] JENNIFER [place] [address] [place] [address], * (ABNORMAL) COMPREHENSIVE METABOLIC PANEL (06/01/2024 2:55 PM SAW STRAIGHTENER) [facility] SODIUM S/P/B 142 136 - 145 MMOL/L 06/01/2024 7:22 PM SAW STRAIGHTENER [facility] POTASSIUM S/P/B 4.3 3.5 - 5.1 MMOL/L 06/01/2024 7:22 PM [facility] CHLORIDE S/P/B 103 98 - 107 MMOL/L 06/01/2024 7:22 PM [facility] CO2 31.7 21 - 32 MMOL/L 06/01/2024 7:22 PM [facility] GLUCOSE 94 70 - 99 MG/DL 06/01/2024 7:22 PM [facility] BUN 13 7 - 18 MG/DL 06/01/2024 7:22 PM [facility] CREATININE S/P/B 0.96 0.55 - 1.02 MG/DL 06/01/2024 7:22 PM [facility] CALCIUM S/P/B 9.5 8.4 - 10.5 MG/DL 06/01/2024 7:22 PM [facility] BILIRUBIN TOTAL S/P/B 0.4 0.2 - 1.0 MG/DL 06/01/2024 7:22 PM [facility] ALKALINE PHOSPHATASE S/P/B 113(H) 39 - 100 U/L 06/01/2024 7:22 PM [facility] AST 14(L) 15 - 37 U/L 06/01/2024 7:22 PM [facility] ALT 27 14 - 59 U/L 06/01/2024 7:22 PM SAW STRAIGHTENER [facility] TOTAL PROTEIN S/P/B 7.0 6.4 - 8.2 G/DL 06/01/2024 7:22 PM SAW STRAIGHTENER [facility] ALBUMIN S/P/B 3.6 3.4 - 5.0 G/DL 06/01/2024 7:22 PM SAW STRAIGHTENER [facility] ANION GAP 7.3 5 - 15 MMOL/L 06/01/2024 7:22 PM SAW STRAIGHTENER [facility] Comment:REFERENCE RANGE NOT ESTABLISHED OSMOLALITY (CALC) 294 MOSM/KG 025 7:22 PM SAW STRAIGHTENER [facility] Comment:REFERENCE RANGE NOT ESTABLISHED GFR ESTIMATE 74(L) >90 ML/MIN/1. 73 M2 06/01/2024 7:22 PM SAW STRAIGHTENER [facility] GFR NOTES GFR REFERENCE S: 06/01/2024 7:22 PM SAW STRAIGHTENER [facility] Comment: THE ESTIMATED GFR IS CALCULATED USING THE 2020 CKD-EPI EQUATION. THE FOLLOWING CATEGORIES FOR GRADING RENAL FUNCTION ARE RECOMMENDED BY THE INTERNATIONAL SOCIETY OF NEPHROLOGY (KDIGO 2012 CLINICAL PRACTICE GUIDELINE). G1,NORMAL OR HIGH: >89 ml/min/1.73 m2 G2,MILDLY DECREASED: 60-89 ml/min/1.73 m2 G3A,MILDLY TO MODERATELY DECREASED: 45-59 ml/min/1.73 m2 G3B,MODERATELY TO SEVERELY DECREASED: 30-44 ml/min/1.73 m2 G4,SEVERELY DECREASED: 15-29 ml/min/1.73 m2 G5,KIDNEY FAILURE: <15 ml/min/1.73 m2 06/01/2024 2:55 PM SAW STRAIGHTENER Ramírez Greene MD LABORATORY Final Result [facility] [address] [place] [address], [place] [phone] * (ABNORMAL) CBC W/DIFF AUTOMATED (06/01/2024 2:55 PM SAW STRAIGHTENER) [facility] WBC 7.81 4.00 - 10.80 x10'3/uL 06/01/2024 7:17 PM [facility] RBC 5.16 4.10 - 5.40 x10'6/uL 06/01/2024 7:17 PM [facility] HGB 14.0 12.0 - 16.0 G/DL 06/01/2024 7:17 PM [facility] HCT 43.3 36.0 - 47.0 % 06/01/2024 7:17 PM [facility] MCV 83.9 78.0 - 100.0 FL 06/01/2024 7:17 PM [facility] MCH 27.1 27.0 - 31.0 PG 06/01/2024 7:17 PM [facility] MCHC 32.3(L) 33.0 - 36.0 G/DL 06/01/2024 7:17 PM [facility] RDW 13.3 11.5 - 14.5 % 06/01/2024 7:17 PM [facility] PLT 323 150 - 350 x10'3/uL 06/01/2024 7:17 PM [facility] MPV 10.9(H) 7.4 - 10.4 FL 06/01/2024 7:17 PM [facility] DIFFERENTIAL TYPE AUTOMATED DIFFERENTIAL 06/01/2024 7:17 PM [facility] NEUTROPHILS % 52.8 % 06/01/2024 7:17 PM [facility] LYMPHOCYTES % 38.4 % 06/01/2024 7:17 PM [facility] MONOCYTES % 6.3 % 06/01/2024 7:17 PM [facility] EOSINOPHILS % 2.0 % 06/01/2024 7:17 PM [facility] BASOPHILS % 0.4 % 06/01/2024 7:17 PM SAW STRAIGHTENER [facility] IMMATURE GRANS % 0.1 % 06/01/2024 7:17 PM SAW STRAIGHTENER [facility] ABS. NEUTROPHILS 4.12 1.60 - 8.30 x10'3/uL 06/01/2024 7:17 PM SAW STRAIGHTENER [facility] ABS. LYMPHOCYTES 3.00 0.80 - 4.70 x10'3/uL 06/01/2024 7:17 PM SAW STRAIGHTENER [facility] ABS. MONOCYTES 0.49 0.00 - 1.50 x10'3/uL 06/01/2024 7:17 PM SAW STRAIGHTENER [facility] ABS. EOSINOPHILS 0.16 0.00 - 0.40 x10'3/uL 06/01/2024 7:17 PM SAW STRAIGHTENER [facility] ABS. BASOPHILS 0.03 0.00 - 0.20 x10'3/uL 06/01/2024 7:17 PM SAW STRAIGHTENER [facility] ABS. IMMATURE GRANULOCYTES 0.01 0.00 - 0.03 x10'3/uL 06/01/2024 7:17 PM SAW STRAIGHTENER [facility] 06/01/2024 2:55 PM SAW STRAIGHTENER Ramírez Greene MD LABORATORY Final Result [facility] [address] [place] [address], * MAMMOGRAM GENERIC (SCAN ORDER) (09/12/2023) Anatomical Region Laterality Modality Other 09/12/2023 us Doc Med Group Scanned SCANNING Final Resu lt * OUTSIDE CYTOPATH VAG/CERV PAP WITH HPV (02/06/2021) 02/06/2021 Narrative 02/06/2021 Ordered by an unspecified provider. us Documents Scanned SCANNING Final Result * HEPATITIS C ANTIBODY (11/18/2020 2:52 PM CDT) HEPATITIS C AB NON-REACTI VE NON-REACT MANJU 11/19/2020 2:28 PM CDT [facility] Comment: ANTIBODIES TO HCV NOT DETECTED. DOES NOT EXCLUDE THE POSSIBILITY OF EXPOSURE TO HCV. 11/18/2020 2:52 PM CDT us Ramírez Greene MD LABORATORY Final Result [facility] [address] [place] [address], [place] [phone] [id number] from Last 3 Months or Most Recently Relevant to Health Maintenance Insurance MEDICAID Care Teams Vp Of Global Marketing Relationship Specialty Start Date End Date Ramírez Greene MD [address] [facility] [address] [place] [address] PCP - General INTERNAL MEDICINE 11/18/20
--- OUTSIDE RECORDS SUMMARY | 2024-08-25 12:12 | XMS_ITS | Encounter Summary ---
Author Organization [facility] Address [address] [place] [address] Care Team Providers Care Therapist'S Assistant Name Role Phone Ramírez Greene MD Primary Care Provider [phone] Encounter Details Date Type Department Care Team (Latest Contact Info) Description 12/05/2020 MyChart Message Enc [facility] Medical Group Multispecialty Care [place] [address] [place] [address] [address] [place] [address] Ramírez Greene MD [address] [facility] [address] [place], [place] [id number] ultrasound results Social History Tobacco Use Types Packs/Day Years Used Date Smoking Tobacco: Former Smokeless Tobacco: Never Comments:stopped smoking 201 0 Alcohol Use Standard Drinks/Week Comments Yes 0 (1 standard drink = 0.6 oz pur e alcohol) weekends...social PHQ-2 Answer Date Recorded PHQ-2 Score - If the patient scores above 3, please move on to questions 3-9 1 11/18/2020 Comments No Sex and Gender Information Value Date Recorded Sex Assigned at Not on file Legal Sex Female 11:10 AM CDT Gender Identity Female 04/06/2021 9:17 PM REAL ESTATE PROFESSIONAL Sexual Orientation Straight 04/06/2021 9: 17 PM REAL ESTATE PROFESSIONAL COVID-19 Exposure Response Date Recorded In the last month, have you been in contact with someone who was confirmed or suspected to have Coronavirus / COVID-19? No / Unsure 11/18/2020 1:17 PM CDT documented as of this encounter Plan of Treatment Upcoming Encounters Date Type Department Care Team (Late st Contact Info) Description 09/19/2024 11:40 AM CDT Office Visit [facility] Medical Group Multispecialty [facility] - [place] [address] [address] [place] [address] Ramírez Greene MD [address] [address] documented as of this encounter Visit Diagnoses Not on filedocumented in this encounter Additional Health Concerns Infection Onset Date Last Indicated Resolved Time COVID-19 Rule Out 02/18/2021 02/18/2021 02/18/2021 4:21 PM CDT COVID-19 Rule Out 03/23/2021 03/23/2021 03/25/2021 1:17 AM REAL ESTATE PROFESSIONAL COVID-19 Rule Out 01/25/2022 01/25/2022 01/25/2022 12:34 PM CDT COVID-19 Rule Out 01/25/2022 01/25/2022 01/26/2022 3:16 PM CDT Assessment Noted Time PHQ-9 Depression Total Score: 4 11/19/19 21 2:14 PM CDT documented as of this encounter Care Teams Therapist'S Assistant Relationship Specialty Start Date End Date [place] [address] [place] [address] PCP - General INTERNAL MEDICINE 11/18/20 documented as of this encounter
--- OUTSIDE RECORDS SUMMARY | 2024-08-25 12:12 | XMS_ITS | Clinical Summary ---
Author Organization [address] Address [address] [place] [id number] Care Team Providers Care Medical Receptionist Medical Assistant Name Role Phone Ramírez Greene MD Primary Care Provider [phone] Allergies Active Allergy Reactions Criticality Noted Date [...] hip pain 01/04/2020 Sacroiliac joint dysfunction 01/04/2020 Encounters Date Type Department Care Team Description 07/03/2024 Telephone [facility] Medical Group Pulmonary [address] [place] [phone] Meagan Ulloa MD Prior Auth (Sodium Oxybate 500MG/ML solution) 06/27/2024 Telephone [facility] Medical Group Pulmonology [facility] [address] [place] [phone] Meagan Ulloa MD 06/01/2024 Telephone [facility] Pulmonology [facility] [address] [place] [address] Meagan Ulloa MD Med Refill (Pharmacy called into the office) from Last 3 Months Medical History Medical History Date Comments SINAN (obstructive sleep apnea) 07/02/2020 Pa tient to continue CPAP at 9 cm of water. Parasomnia 07/02/2020 Stable. Anxiety 07/02/2020 Contributing to patient's sleep disturbances. RLS (restless legs syndrome) 07/02/2020 Not on treatment. Hypertension, well controlled 07/02/2020 Social History Tobacco Use Types Packs/Day Years Used Date Smoking Tobacco: Former Cigarettes Q uit: 11/05/2010 Smokeless Tobacco: Never Personal Safety Answer Date Recorded Getting School Help Needed Not on file 04/21 Comments Unknown Sex and Gender Information Value Date Recorded Sex Assigned at Not on file Legal Sex Female 8:16 AM TANK OPERATOR Gender Identity Not on file Sexual Orientation Not on file Obstetrics History Last Filed Vital Signs Vital Sign Reading [...] 11/23/2023 3:07 PM CDT Plan of Treatment Health Maintenance Due Date Last Done Comments Breast Cancer Screening-Mammogram 1975 Cervical Cancer Screening 1977 Colon Cancer Screening-Colonoscopy 1977 Depression Screening 1977 Hepatitis C Screening 1977 Hepatitis B Screening 11/27/1995 Regular Well Visit/Exam 18-64 11/27/1995 Covid-19 Vaccine ( - 2023-2 5 season) 2023 03/12/2021, 07/25/2020, 07/04/2020 Influenza Vaccine (Season Ended) 2024 02/17/2022, 01/09/2021, 03/01/2020 DTaP/Tdap/Td Vaccine (2 - Td or Tdap) 11/18/2030 11/18/2020 HPV Vaccines Aged Out No longer eligi ble based on patient's age to complete this topic Pneumococcal vaccine <65 Aged Out No longer eligible based on patient's age to complete this topic Insurance IDPA Care Teams Medical Receptionist Medical Assistant Relationship Specialty Start Date End Date Ramírez Greene MD [address] [place] [address] PCP - General Internal Medicine 11/11/21
--- OUTSIDE RECORDS SUMMARY | 2024-08-25 12:12 | XMS_ITS | Encounter Summary ---
Author Organization [facility] Address [address] [place] [address] Care Team Providers Care Elect Equip Maint Eng Name Role Phone Ramírez Greene MD Primary Care Provider [phone] Encounter Details Date Type Department Care Team (Late Contact Info) Description 02/06/2020 MyChart Message Enc [facility] Multispecialty Care - [facility] [address] [facility], [address] [place] [phone] Holger Hill MD [address] [place] [address] RE: Other Social History Tobacco Use Types Packs/Day Years Used Date Smoking Tobacco: Never Smokeless Tobacco: Never Alcohol Use Standard Drinks/Week Comments Yes 0 (1 standard drink = 0.6 oz pur e alcohol) Comments Unknown Sex and Gender Information Value Date Recorded Sex Assigned at Not on file Legal Sex Female 11:10 AM CDT Gender Identity Female 04/06/2021 9:17 PM COMPTOMETER OPERATOR Sexual Orientation Straight 04/06/2021 9: 17 PM COMPTOMETER OPERATOR COVID-19 Exposure Response Date Recorded In the last month, have you been in contact with someone who was confirmed or suspected to have Coronavirus / COVID-19? No / Unsure 01/31/2020 2:56 PM CDT documented as of this encounter Plan of Treatment Upcoming Encounters Date Type Department Care Team (Late Contact Info) Description 09/19/2024 11:40 AM CDT Office Visit [facility] Multispecialty Care [place] [address] [place] [address] [address] [place] [address] Ramírez Greeen MD [address] [address] documented as of this encounter Visit Diagnoses Not on filedocumented in this encounter Additional Health Concerns Infection Onset Date Last Indicated Resolved Time COVID-19 Rule Out 02/18/2021 02/18/2021 02/18/2021 4:21 PM CDT COVID-19 Rule Out 03/23/2021 03/23/2021 03/25/2021 1:17 AM COMPTOMETER OPERATOR COVID-19 Rule Out 01/25/2022 01/25/2022 01/25/2022 12:34 PM CDT COVID-19 Rule Out 01/25/2022 01/25/2022 01/26/2022 3:16 PM CDT documented as of this encounter Care Teams Elect Equip Maint Eng Relationship Specialty Start Date End Date [place] [address] [place] [address] PCP - General INTERNAL MEDICINE 11/18/20 documented as of this encounter
== END 2024-08-24 10:55 | disposition home or self-care (01) ==
PROVIDERS: PCP Internal Medicine; Visit Provider Obstetrics & Gynecology
DX: Z01.818 Encounter for other preprocedural examination (principal); R00.2 Palpitations; R94.31 Abnormal electrocardiogram [ECG] [EKG]
CPT/HCPCS: 93005

== ENCOUNTER 2024-08-29 00:22 | Day surgery (SDC) | payer BC, SELFPAY ==
[2024-08-16 09:59] VITALS: BMI 42.7
--- NOTE | 2024-08-16 10:13 | PC.NURSE ---
Report to the Outpatient Waiting Room, entrance under the green pavilion located off [facility], at time ___0830__ on date ___08/29/24____. Planned Procedure Time: ____1030____.? Time changes happen often and if your time is changed the preop area will call you the afternoon before. - You and your visitor will be asked to self-screen and do not enter if you have any COVID symptoms. Please call surgeon if you need to reschedule. - A mask is optional within the hospital at this time. Patients may have clear liquids (water, carbonated beverages, clear teas, apple juice) until 3 hours prior to surgery with a maximum of 20 ounces. - No food from midnight until time of surgery and no smoking, or chewing tobacco (or any form of nicotine). No chewing gum, candy or mints. Take only the following medications with a SIP of water on the morning of surgery: ___buspirone, paroxetine, Slynd____ DO NOT STOP ANY OF YOUR OTHER PRESCRIPTION MEDICATIONS PRIOR TO SURGERY EXCEPT THE FOLLOWING Hold all vitamins and supplements for 3 days per anesthesiologist. Medications to discontinue per physician ____please HOLD losartan the morning of surgery____ Please no make-up, nail luxembourger, hairspray, perfume, deodorant, or body powder the day of surgery.? No jewelry (including any body piercings) or valuables the day of surgery, leave them at home.? Please take a shower or bath the night before, or the morning of, surgery with an antibacterial soap.? Wear comfortable, loose fitting clothing.? - Jewelry must be removed prior to entering the operating room.? Rings and piercings that are not removed may be cut off. - The hospital will not accept responsibility for valuables.? - Please leave all valuables, including medications, at home the day of surgery. If you are going home after surgery, a licensed driver messenger must drive you home.? - NO public transportation without another adult if you receive anesthesia. - We recommend that an adult stay with you for 24 hours following discharge. - We also recommend that you do not drive, make important decision, drink alcoholic beverages, or take any drugs that were not prescribed by your health care provider for at least 24 hours after your discharge time. Follow any additional instructions given to you from your surgeon. Telephone instructions given to Andria and asked if any additional questions and then verbalized understanding. Patient advised to call surgeon office or pre surgery nurse liaison [phone] if any additional questions.
--- OUTSIDE RECORDS SUMMARY | 2024-08-29 00:25 | XMS_ITS | Encounter Summary ---
Author Organization [facility] Address [address] [place] [address] Care Team Providers Care Professor Of Religion Name Role Phone Ramírez Greene MD Primary Care Provider [phone] Encounter Details Date Type Department Care Team (Latest Contact Info) Description 07/27/2023 MyChart Message Enc [place] [address] [address] [place] [address] Ramírez Greene MD [address] [facility] [address] [place], [place] [phone] Follow-up # to hopefully help with your dad's placement in a memory half-way Social History Tobacco Use Types Packs/Day Years [...] CDT Gender Identity Female 04/06/2021 9:17 PM HIDE CURER Sexual Orientation Straight 04/06/2021 9: 17 PM HIDE CURER documented as of this encounter Plan of Treatment Upcoming Encounters Date Type Department Care Team (Late st Contact Info) Description 09/19/2024 11:40 AM CDT Office Visit [place] [address] [facility] [address] [place] [address] Ramírez Greene MD [address] [place] [address] documented as of this encounter Visit Diagnoses Not on filedocumented in this encounter Additional Health Concerns Assessment Noted Time PHQ-9 Depression Total Score: 15 07/25/ 024 4:35 PM CDT documented as of this encounter Care Teams Professor Of Religion Relationship Specialty Start Date End Date Ramírez Greene MD [address] [place] [address] PCP - General INTERNAL MEDICINE 11/18/20 documented as of this encounter
--- OUTSIDE RECORDS SUMMARY | 2024-08-29 00:25 | XMS_ITS | Encounter Summary ---
Author Organization [facility] Address [address] [place] [address] Care Team Providers Care Solutions Executive Security Name Role Phone Ramírez Greene MD Primary Care Provider [phone] Encounter Details Date Type Department Care Team (Latest Contact Info) Description 06/06/2023 MyChart Message Enc [address] [address] Ramírez Greene MD [address] [place] [address] Question about prescriptions Social History Tobacco [...] CDT Gender Identity Female 04/06/2021 9:17 PM MEDICAL RECORDS SPECIALIST Sexual Orientation Straight 04/06/2021 9: 17 PM MEDICAL RECORDS SPECIALIST documented as of this encounter Plan of Treatment Upcoming Encounters Date Type Department Care Team ( st Contact Info) Description 09/19/2024 11:40 AM CDT [facility] [address] [place] [address] Ramírez Greene MD [address] [address] documented as of this encounter Visit Diagnoses Not on filedocumented in this encounter Additional Health Concerns Assessment Noted Time PHQ-9 Depression Total Score: 3 11/20/19 23 9:52 AM CDT documented as of this encounter Care Teams Solutions Executive Security Relationship Specialty Start Date End Date Ramírez Greene MD [address] [address] PCP - General INTERNAL MEDICINE 11/18/20 documented as of this encounter
--- OUTSIDE RECORDS SUMMARY | 2024-08-29 00:25 | XMS_ITS | Encounter Summary ---
Author Organization [facility] Address [address] [place] [address] Care Team Providers Care Classroom Paraprofessional Name Role Phone Ramírez Greene MD Primary Care Provider [phone] Encounter Details Date Type Department Care Team (Latest Contact Info) Description 12/02/2022 MyChart Message Enc [facility] [place] [address] [address] [place] [address] Ramírez Greene MD [address] [place] [address] [address] [place], [place] [id number] Rosacea medication Social History Tobacco Use Types [...] Gender Identity Female 04/06/2021 9:17 PM MEDICAL PHYSICS PROFESSOR Sexual Orientation Straight 04/06/2021 9: 17 PM MEDICAL PHYSICS PROFESSOR documented as of this encounter Plan of Treatment Upcoming Encounters Date Type Department Care Team (Late st Contact Info) Description 09/19/2024 11:40 AM CDT Office Visit [facility] Medical [facility] Multispecialty [facility] [address] [place] [address] Ramírez Greene MD [address] [address] documented as of this encounter Visit Diagnoses Not on filedocumented in this encounter Additional Health Concerns Assessment Noted Time PHQ-9 Depression Total Score: 3 11/20/19 23 9:52 AM CDT documented as of this encounter Care Teams Classroom Paraprofessional Relationship Specialty Start Date End Date Ramírez Greene MD [address] [address] PCP - General INTERNAL MEDICINE 11/18/20 documented as of this encounter
--- OUTSIDE RECORDS SUMMARY | 2024-08-29 00:25 | XMS_ITS | Encounter Summary ---
Author Organization [facility] Address [address] [place] [address] Care Team Providers Care Completion Manager Name Role Phone Ramírez Greene MD Primary Care Provider [phone] Encounter Details Date Type Department Care Team (Late Contact Info) Description 02/06/2020 MyChart Message Enc [facility] Care - [facility] [address] [facility], [address] [place] [phone] Holger Hill MD [address] [place] [address] RE: Other Social History Tobacco Use Types Packs/Day Years Used Date Smoking Tobacco: Never Smokeless Tobacco: Never Alcohol Use Standard Drinks/Week Comments Yes 0 (1 standard drink = 0.6 oz pur e alcohol) Comments Unknown Sex and Gender Information Value Date Recorded Sex Assigned at Not on file Legal Sex Female 11:10 AM CDT Gender Identity Female 04/06/2021 9:17 PM COIL MAKER Sexual Orientation Straight 04/06/2021 9: 17 PM COIL MAKER COVID-19 Exposure Response Date Recorded In the [...] Visit [facility] [place] [address] [place] [address] [address] [place] [address] Ramírez Greene MD [address] [address] documented as of this encounter Visit Diagnoses Not on filedocumented in this encounter Additional Health Concerns Infection Onset Date Last Indicated Resolved Time COVID-19 Rule Out 02/18/2021 02/18/2021 02/18/2021 4:21 PM CDT COVID-19 Rule Out 03/23/2021 03/23/2021 03/25/2021 1:17 AM COIL MAKER COVID-19 Rule Out 01/25/2022 01/25/2022 01/25/2022 12:34 PM CDT COVID-19 Rule Out 01/25/2022 01/25/2022 01/26/2022 3:16 PM CDT documented as of this encounter Care Teams Completion Manager Relationship Specialty Start Date End Date [place] [address] [place] [address] PCP - General INTERNAL MEDICINE 11/18/20 documented as of this encounter
--- OUTSIDE RECORDS SUMMARY | 2024-08-29 00:25 | XMS_ITS | Clinical Summary ---
Author Organization [facility] Address [address] [place] [address] Care Team Providers Care Police Inspector Name Role Phone Ramírez Greene MD Primary Care Provider [phone] Allergies Active Allergy Reactions Criticality Noted Date Comments Moxifloxacin Tachycardia 01/04/2020 Sulfamethoxazole-Trimethoprim Rash Low 2019 Medications XYREM 500 MG/ML Solution Take 4 g by mouth 2 (two) times daily. 0 Active Cholecalciferol (VITAMIN D) 50 MCG (1999) Tab Ac tive cetirizine (ZYRTEC) 10 MG tabletIndications :Environmental and seasonal allergies Take 1 tablet (10 mg total) by mouth daily. 30 tablet 5 4 Active buPROPion XL (WELLBUTRIN XL) 300 MG 24 hr tabletIndications :Mild episode of recurrent major depressive disorder,Anxiety Take 1 tablet (300 mg total) by mouth daily. 90 tablet 1 5 Active metFORMIN (GLUCOPHAGE) 500 MG tabletIndications :Morbid obesity (CMS/HCC) Take one tablet daily with breakfast for the first two weeks then change to two tablets daily thereafter with food. 180 tablet 1 5 Active PARoxetine (PAXIL) 40 MG tabletIndications :Mild episode of recurrent major depressive disorder,Anxiety Take 1 tablet (40 mg total) by mouth every morning. 90 tablet 1 5 Active losartan-hydroCHL OROthiazide (HYZAAR) 50-12.5 MG tabletIndications :Essential hypertension Take 1 tablet by mouth daily. 90 tablet 3 5 Active metroNIDAZOLE (METROCREAM) 0.75 % creamIndications: Rosacea Apply topically 2 (two) times daily. 45 g 4 5 Active omeprazole (PRILOSEC) 40 MG capsuleIndication s:Gastroesophagea l reflux disease without esophagitis TAKE 1 CAPSULE(40 MG) BY MOUTH DAILY 90 capsule 5 Active Active Problems Problem Noted Date Diagnosed Date Gastroesophageal reflux disease without esophagi tis 07/20/2021 Screening for colon cancer 02/09/2021 Overview (02/09/2021): Added automatically from request for surgery [id number] Essential hypertension 07/02/2020 Anxiety 07/02/2020 Overview (11/18/2020): [...] Type Department Care Team Description 07/04/2024 Scan HEALTH INFO SRVCS Scanned, Doc Med Group 06/08/2024 Telephone [facility] Medical Group Multispecialty Care - [address] [place] [address] Ramírez Greene MD Prior Authorization (Metformin ) 06/01/2024 2:20 PM SALESPERSON TOY TRAINS AND ACCESSORIES Office Visit [facility] Medical Group Multispecialty Care - [address] [place] [address] Ramírez Greene MD Follow Up (Environmental allergies); [...] CDT Gender Identity Female 04/06/2021 9:17 PM SALESPERSON TOY TRAINS AND ACCESSORIES Sexual Orientation Straight 04/06/2021 9: 17 PM SALESPERSON TOY TRAINS AND ACCESSORIES Last Filed Vital Signs Vital Sign Reading Time Taken Comments Blood Pressure 124/89 06/01/2024 2:28 PM SALESPERSON TOY TRAINS AND ACCESSORIES Pulse 84 06/01/2024 2:28 PM SALESPERSON TOY TRAINS AND ACCESSORIES Temperature 36.8 C (98.2 F) 06/01/2024 2:28 PM SALESPERSON TOY TRAINS AND ACCESSORIES Respiratory Rate 18 06/01/2024 2:28 PM SALESPERSON TOY TRAINS AND ACCESSORIES Oxygen Saturation 98% 06/01/2024 2:28 PM SALESPERSON TOY TRAINS AND ACCESSORIES Inhaled Oxygen Concentration - - Weight 125.9 kg (277 lb 9.6 oz) 06/01/2024 2:28 PM SALESPERSON TOY TRAINS AND ACCESSORIES Height 167.6 cm (5' 6 ) 06/01/2024 2:28 PM SALESPERSON TOY TRAINS AND ACCESSORIES Body Mass Index 44.81 06/01/2024 2:28 PM SALESPERSON TOY TRAINS AND ACCESSORIES Plan of Treatment Upcoming Encounters Date Type Department Care Team (Late st Contact Info) Description 09/19/2024 11:40 AM CDT Office Visit [facility] Medical Group Multispecialty Care - [place] [address] [place] [address] [address] [place], [place] [address] Ramírez Greene MD [address] [facility] [address] [place] [address] Health Maintenance Due Date Last Done Comments [...] 04/13/2021 Hepatitis C Completed 11/18/2020 PHQ-2 (Physician Sycuan) Completed 06/01/2024 Meningococcal B Vaccine Aged Out [...] CBC W/DIFF AUTOMATED Routine 06/01/2024 2:55 PM SALESPERSON TOY TRAINS AND ACCESSORIES Morbid obesity (CMS/HCC) COMPREHENSIVE METABOLIC PANEL Routine 06/01/2024 2:55 PM SALESPERSON TOY TRAINS AND ACCESSORIES Morbid obesity (CMS/HCC) HEMOGLOBIN, GLYCOSYLATED Routine 06/01/2024 2:55 PM SALESPERSON TOY TRAINS AND ACCESSORIES Morbid obesity (CMS/HCC) COLLECTION VENOUS BLOOD VENIPUNCTURE Routine 06/01/2024 2:53 PM SALESPERSON TOY TRAINS AND ACCESSORIES Morbid obesity MAMMOGRAM GENERIC (SCAN ORDER) 09/12/2023 [...] * (ABNORMAL) HEMOGLOBIN, GLYCOSYLATED (06/01/2024 2:55 PM SALESPERSON TOY TRAINS AND ACCESSORIES) HGB A1C 5.4 4.5 - 6.2 % 06/01/2024 7:44 PM SALESPERSON TOY TRAINS AND ACCESSORIES [facility] [place] ESTIMATED AVG GLUCOSE 108(H) 74 - 106 MG/DL 06/01/2024 7:44 PM SALESPERSON TOY TRAINS AND ACCESSORIES [facility] [place] 06/01/2024 2:55 PM SALESPERSON TOY TRAINS AND ACCESSORIES Ramírez Greene MD LABORATORY Final Result [facility] [place] [address] [facility] [place] [address], [place] [phone] * (ABNORMAL) COMPREHENSIVE METABOLIC PANEL (06/01/2024 2:55 PM SALESPERSON TOY TRAINS AND ACCESSORIES) SODIUM S/P/B 142 136 - 145 MMOL/L 06/01/2024 7:22 PM [facility] POTASSIUM S/P/B 4.3 3.5 - 5.1 MMOL/L 06/01/2024 7:22 PM [facility] CHLORIDE S/P/B 103 98 - 107 MMOL/L 06/01/2024 7:22 PM [facility] CO2 31.7 21 - 32 MMOL/L 06/01/2024 7:22 PM [facility] GLUCOSE 94 70 - 99 MG/DL 06/01/2024 7:22 PM [facility] BUN 13 7 - 18 MG/DL 06/01/2024 7:22 PM [facility] CREATININE S/P/B 0.96 0.55 - 1.02 MG/DL 06/01/2024 7:22 PM [facility] CALCIUM S/P/B 9.5 8.4 - 10.5 MG/DL 06/01/2024 7:22 PM [facility] BILIRUBIN TOTAL S/P/B 0.4 0.2 - 1.0 MG/DL 06/01/2024 7:22 PM [facility] ALKALINE PHOSPHATASE S/P/B 113(H) 39 - 100 U/L 06/01/2024 7:22 PM [facility] AST 14(L) 15 - 37 U/L 06/01/2024 7:22 PM [facility] ALT 27 14 - 59 U/L 06/01/2024 7:22 PM [facility] TOTAL PROTEIN S/P/B 7.0 6.4 - 8.2 G/DL 06/01/2024 7:22 PM [facility] ALBUMIN S/P/B 3.6 3.4 - 5.0 G/DL 06/01/2024 7:22 PM SALESPERSON TOY TRAINS AND ACCESSORIES [facility] ANION GAP 7.3 5 - 15 MMOL/L 06/01/2024 7:22 PM SALESPERSON TOY TRAINS AND ACCESSORIES [facility] Comment:REFERENCE RANGE NOT ESTABLISHED OSMOLALITY (CALC) 294 MOSM/KG 025 7:22 PM SALESPERSON TOY TRAINS AND ACCESSORIES [facility] Comment:REFERENCE RANGE NOT ESTABLISHED GFR ESTIMATE 74(L) >90 ML/MIN/1. 73 M2 06/01/2024 7:22 PM SALESPERSON TOY TRAINS AND ACCESSORIES [facility] GFR NOTES GFR REFERENCE S: 06/01/2024 7:22 PM SALESPERSON TOY TRAINS AND ACCESSORIES [facility] Comment: THE ESTIMATED GFR IS CALCULATED USING [...] FAILURE: <15 ml/min/1.73 m2 06/01/2024 2:55 PM SALESPERSON TOY TRAINS AND ACCESSORIES Ramírze Greene MD LABORATORY Final Result [facility] [address] [place] [address], [place] [phone] * (ABNORMAL) CBC W/DIFF AUTOMATED (06/01/2024 2:55 PM SALESPERSON TOY TRAINS AND ACCESSORIES) WBC 7.81 4.00 - 10.80 x10'3/uL 06/01/2024 7:17 PM SALESPERSON TOY TRAINS AND ACCESSORIES [facility] RBC 5.16 4.10 - 5.40 x10'6/uL 06/01/2024 7:17 PM [facility] HGB 14.0 12.0 - 16.0 G/DL 06/01/2024 7:17 PM [facility] HCT 43.3 36.0 - 47.0 % 06/01/2024 7:17 PM [facility] MCV 83.9 78.0 - 100.0 FL 06/01/2024 7:17 PM [facility] MCH 27.1 27.0 - 31.0 PG 06/01/2024 7:17 PM [facility] MCHC 32.3(L) 33.0 - 36.0 G/DL 06/01/2024 7:17 PM [facility] RDW 13.3 11.5 - 14.5 % 06/01/2024 7:17 PM [facility] PLT 323 150 - 350 x10'3/uL 06/01/2024 7:17 PM [facility] MPV 10.9(H) 7.4 - 10.4 FL 06/01/2024 7:17 PM [facility] DIFFERENTIAL TYPE AUTOMATED DIFFERENTIAL 06/01/2024 7:17 PM [facility] NEUTROPHILS % 52.8 % 06/01/2024 7:17 PM [facility] LYMPHOCYTES % 38.4 % 06/01/2024 7:17 PM [facility] MONOCYTES % 6.3 % 06/01/2024 7:17 PM [facility] EOSINOPHILS % 2.0 % 06/01/2024 7:17 PM [facility] BASOPHILS % 0.4 % 06/01/2024 7:17 PM [facility] IMMATURE GRANS % 0.1 % 06/01/2024 7:17 PM [facility] ABS. NEUTROPHILS 4.12 1.60 - 8.30 x10'3/uL 06/01/2024 7:17 PM SALESPERSON TOY TRAINS AND ACCESSORIES [facility] ABS. LYMPHOCYTES 3.00 0.80 - 4.70 x10'3/uL 06/01/2024 7:17 PM SALESPERSON TOY TRAINS AND ACCESSORIES [facility] ABS. MONOCYTES 0.49 0.00 - 1.50 x10'3/uL 06/01/2024 7:17 PM SALESPERSON TOY TRAINS AND ACCESSORIES [facility] ABS. EOSINOPHILS 0.16 0.00 - 0.40 x10'3/uL 06/01/2024 7:17 PM SALESPERSON TOY TRAINS AND ACCESSORIES [facility] ABS. BASOPHILS 0.03 0.00 - 0.20 x10'3/uL 06/01/2024 7:17 PM SALESPERSON TOY TRAINS AND ACCESSORIES [facility] ABS. IMMATURE GRANULOCYTES 0.01 0.00 - 0.03 x10'3/uL 06/01/2024 7:17 PM SALESPERSON TOY TRAINS AND ACCESSORIES [facility] 06/01/2024 2:55 PM SALESPERSON TOY TRAINS AND ACCESSORIES Ramírez Greene MD LABORATORY Final Result [facility] [address] [place] [address], * MAMMOGRAM GENERIC (SCAN ORDER) (09/12/2023) Anatomical Region Laterality Modality Other 09/12/2023 us Doc Med [facility] Scanned SCANNING Final Resu lt * OUTSIDE CYTOPATH VAG/CERV PAP WITH HPV (02/06/2021) 02/06/2021 Narrative 02/06/2021 Ordered by an unspecified provider. us Documents Scanned SCANNING Final Result * HEPATITIS C ANTIBODY (11/18/2020 2:52 PM CDT) HEPATITIS C AB NON-REACTI VE NON-REACT MANJU 11/19/2020 2:28 PM CDT [facility] Comment: ANTIBODIES TO HCV NOT DETECTED. DOES NOT EXCLUDE THE POSSIBILITY OF EXPOSURE TO HCV. 11/18/2020 2:52 PM CDT Ramírez Greene MD LABORATORY Final Result [facility] [address] [place] [address], [place] [phone] [id number] from Last 3 Months or Most Recently Relevant to Health Maintenance Insurance [facility] MEDICAID Care Teams Police Inspector Relationship Specialty Start Date End Date Ramírez Greene MD [address] [facility] [address] [place] [address] (work) PCP - General INTERNAL MEDICINE 11/18/20
--- OUTSIDE RECORDS SUMMARY | 2024-08-29 00:25 | XMS_ITS | Encounter Summary ---
Author Organization [facility] Address [address] [place] [address] Care Team Providers Care Bobbin Painter Name Role Phone Ramírez Greene MD Primary Care Provider [phone] Encounter Details Date Type Department Care Team (Late st Contact Info) Description 10/12/2022 MyChart Message Enc [facility] Medical Group Multispecialty Care - [place] [address] [address] [place] [address] Ramí[place] [address] [place] [address] [place], [place] [id number] Blood Type Social History Tobacco Use Types [...] CDT Gender Identity Female 04/06/2021 9:17 PM RESIDENCE DIRECTOR Sexual Orientation Straight 04/06/2021 9: 17 PM RESIDENCE DIRECTOR COVID-19 Exposure Response Date Recorded In the last 10 days, have yo u been in contact with someone who was confirmed or suspected to have Coronavirus/COVID-19? No / Unsure 09/22/2022 2:00 PM CDT documented as of this encounter Plan of Treatment Upcoming Encounters Date Type Department Care Team (Late st Contact Info) Description 09/19/2024 11:40 AM CDT Office Visit [facility] Medical [facility] Multispecialty Care - [place] [address] [address] [place] [address] Ramírez Greene MD [address] [place] [address] documented as of this encounter Visit Diagnoses Not on filedocumented in this encounter Additional Health Concerns Assessment Noted Time PHQ-9 Depression Total Score: 1 07/21/19 22 2:35 PM CDT documented as of this encounter Care Teams Bobbin Painter Relationship Specialty Start Date End Date Ramírez Greene MD [address] [place] [address] PCP - General INTERNAL MEDICINE 11/18/20 documented as of this encounter
--- OUTSIDE RECORDS SUMMARY | 2024-08-29 00:25 | XMS_ITS | Encounter Summary ---
Author Organization [facility] Address [address] [place] [address] Care Team Providers Care Tapper Operator Name Role Phone Ramírez Greene MD Primary Care Provider [phone] Encounter Details Date Type Department Care Team (Late st Contact Info) Description 02/02/2021 [employer] Message Enc [facility] Medical Group Multispecialty Care - [facility] [address] [facility], [address] [place] [phone] Holger Hill MD [address] [place] [address] RE: Question Social History Tobacco Use Types [...] CDT Gender Identity Female 04/06/2021 9:17 PM SCOOP MACHINE OPERATOR Sexual Orientation Straight 04/06/2021 9: 17 PM SCOOP MACHINE OPERATOR COVID-19 Exposure Response Date Recorded In [...] Office Visit [facility] Medical Group Multispecialty Care - [place] [address] [address] [place] [address] Ramírez Greene MD [address] [address] documented as of this encounter Visit Diagnoses Not on filedocumented in this encounter Additional Health Concerns Infection Onset Date Last Indicated Resolved Time COVID-19 Rule Out 02/18/2021 02/18/2021 02/18/2021 4:21 PM CDT COVID-19 Rule Out 03/23/2021 03/23/2021 03/25/2021 1:17 AM SCOOP MACHINE OPERATOR COVID-19 Rule Out 01/25/2022 01/25/2022 01/25/2022 12:34 PM CDT COVID-19 Rule Out 01/25/2022 01/25/2022 01/26/2022 3:16 PM CDT Assessment Noted Time PHQ-9 Depression Total Score: 2 12/17/19 21 2:34 PM CDT documented as of this encounter Care Teams Tapper Operator Relationship Specialty Start Date End Date Ramí[place] [address] [place] [address] PCP - General INTERNAL MEDICINE 11/18/20 documented as of this encounter
--- OUTSIDE RECORDS SUMMARY | 2024-08-29 00:25 | XMS_ITS | Encounter Summary ---
Author Organization [facility] Address [address] [place] [address] Care Team Providers Care Emergency Department Nurse Name Role Phone Ramírez Greene MD Primary Care Provider [phone] Encounter Details Date Type Department Care Team (Late st Contact Info) Description 01/27/2022 Courseload Message Enc [facility] [place] [address] [address] [place] [address] [facility] Provider strep culture Social History Tobacco Use [...] CDT Gender Identity Female 04/06/2021 9:17 PM BEATER OPERATOR Sexual Orientation Straight 04/06/2021 9: 17 PM BEATER OPERATOR documented as of this encounter Plan of Treatment Upcoming Encounters Date Type Department Care Team (Late Contact Info) Description 09/19/2024 11:40 AM CDT Office Visit [facility] Medical [facility] Multispecialty [facility] [place] [address] [address] [place] [address] Ramírez Greene MD [address] [place] [address] documented as of this encounter Visit Diagnoses Not on filedocumented in this encounter Additional Health Concerns Assessment Noted Time PHQ-9 Depression Total Score: 1 07/21/19 22 2:35 PM CDT documented as of this encounter Care Teams Emergency Department Nurse Relationship Specialty Start Date End Date Ramírez Greene MD [address] [facility] [address] [place] [address] PCP - General INTERNAL MEDICINE 11/18/20 documented as of this encounter
--- OUTSIDE RECORDS SUMMARY | 2024-08-29 00:25 | XMS_ITS | Encounter Summary ---
Author Organization [facility] Address [address] [place] [address] Care Team Providers Care Call Or Contact Centre Manager Name Role Phone Ramírez Greene MD Primary Care Provider [phone] Encounter Details Date Type Department Care Team (Latest Contact Info) Description 12/26/2020 MyChart Message Enc [facility] Medical Group Multispecialty Care - [place] [address] [place] [address] [address] [place] [address] Ramírez Greene MD [address] [facility] [address] [place], [place] [phone] RE: Medication Questions Social History Tobacco Use [...] CDT Gender Identity Female 04/06/2021 9:17 PM BUSINESS BANKING MANAGER Sexual Orientation Straight 04/06/2021 9: 17 PM BUSINESS BANKING MANAGER COVID-19 Exposure Response Date Recorded In the last month, have you been in contact with someone who was confirmed or suspected to have Coronavirus / COVID-19? No / Unsure 12/16/2020 2:18 PM CDT documented as of this encounter Plan of Treatment Upcoming Encounters Date Type Department Care Team (Late st Contact Info) Description 09/19/2024 11:40 AM CDT Office Visit [facility] Medical Group Multispecialty Care - [place] [address] [address] [place] [address] Ramírez Greene MD [address] [address] documented as of this encounter Visit Diagnoses Not on filedocumented in this encounter Additional Health Concerns Infection Onset Date Last Indicated Resolved Time COVID-19 Rule Out 02/18/2021 02/18/2021 02/18/2021 4:21 PM CDT COVID-19 Rule Out 03/23/2021 03/23/2021 03/25/2021 1:17 AM BUSINESS BANKING MANAGER COVID-19 Rule Out 01/25/2022 01/25/2022 01/25/2022 12:34 PM CDT COVID-19 Rule Out 01/25/2022 01/25/2022 01/26/2022 3:16 PM CDT Assessment Noted Time PHQ-9 Depression Total Score: 2 12/17/19 21 2:34 PM CDT documented as of this encounter Care Teams Call Or Contact Centre Manager Relationship Specialty Start Date End Date [place] [address] [place] [address] PCP - General INTERNAL MEDICINE 11/18/20 documented as of this encounter
--- OUTSIDE RECORDS SUMMARY | 2024-08-29 00:25 | XMS_ITS | Encounter Summary ---
Author Organization [facility] Address [address] [place] [address] Care Team Providers Care Biomedical Specialist Name Role Phone Ramírez Greene MD Primary Care Provider [phone] Encounter Details Date Type Department Care Team (Latest Contact Info) Description 02/17/2020 JDP Therapeuticst Message Enc [facility] Multispecialty Care - [facility] 3 [facility], [address] [place] [phone] Holger Hill MD [address] [place] [address] Follow Up/Update Social History Tobacco Use [...] CDT Gender Identity Female 04/06/2021 9:17 PM TECHNOLOGY SALES CONSULTANT Sexual Orientation Straight 04/06/2021 9: 17 PM TECHNOLOGY SALES CONSULTANT COVID-19 Exposure Response Date Recorded In the last month, have you been in contact with someone who was confirmed or suspected to have Coronavirus / COVID-19? No / Unsure 02/19/2020 12:48 PM CDT documented as of this encounter Plan of Treatment Upcoming Encounters Date Type Department Care Team (Late st Contact Info) Description 09/19/2024 11:40 AM CDT Office Visit [facility] Medical [facility] Multispecialty Care - [place] [address] [address] [place] [address] Ramírez Greene MD 1188 [facility] [address] [place] [address] documented as of this encounter Visit Diagnoses Not on filedocumented in this encounter Additional Health Concerns Infection Onset Date Last Indicated Resolved Time COVID-19 Rule Out 02/18/2021 02/18/2021 02/18/2021 4:21 PM CDT COVID-19 Rule Out 03/23/2021 03/23/2021 03/25/2021 1:17 AM TECHNOLOGY SALES CONSULTANT COVID-19 Rule Out 01/25/2022 01/25/2022 01/25/2022 12:34 PM CDT COVID-19 Rule Out 01/25/2022 01/25/2022 01/26/2022 3:16 PM CDT documented as of this encounter Care Teams Biomedical Specialist Relationship Specialty Start Date End Date Ramírez Greene MD [address] [address] PCP - General INTERNAL MEDICINE 11/18/20 documented as of this encounter
--- OUTSIDE RECORDS SUMMARY | 2024-08-29 00:25 | XMS_ITS | Encounter Summary ---
Author Organization [facility] Address [address] [place] [address] Care Team Providers Care 8Th Grade Teacher Name Role Phone Ramírez Greene MD Primary Care Provider [phone] Encounter Details Date Type Department Care Team (Late st Contact Info) Description 12/29/2021 Tweetworks [facility] - [place] [address] [address] [place], [place] [phone] [facility] Provider Test result Social History Tobacco Use [...] CDT Gender Identity Female 04/06/2021 9:17 PM ANDROID ARCHITECT Sexual Orientation Straight 04/06/2021 9: 17 PM ANDROID ARCHITECT documented as of this encounter Plan of Treatment Upcoming Encounters Date Type Department Care Team (Late Contact Info) Description 09/19/2024 11:40 AM CDT Office Visit [facility] Multispecialty [facility] - [place] [address] [address] [place] [address] Ramírez Greene MD [address] [place] [address] documented as of this encounter Visit Diagnoses Not on filedocumented in this encounter Additional Health Concerns Infection Onset Date Last Indicated Resolved Time COVID-19 Rule Out 01/25/2022 01/25/2022 01/25/2022 12:34 PM CDT COVID-19 Rule Out 01/25/2022 01/25/2022 01/26/2022 3:16 PM CDT Assessment Noted Time PHQ-9 Depression Total Score: 1 07/21/19 22 2:35 PM CDT documented as of this encounter Care Teams 8Th Grade Teacher Relationship Specialty Start Date End Date Ramírez Greene MD 1188 [facility] [address] [place] [address] PCP - General INTERNAL MEDICINE 11/18/20 documented as of this encounter
--- OUTSIDE RECORDS SUMMARY | 2024-08-29 00:25 | XMS_ITS | Encounter Summary ---
Author Organization [facility] Address [address] [place] [address] Care Team Providers Care Architect Internship Name Role Phone Ramírez Greene MD Primary Care Provider [phone] Encounter Details Date Type Department Care Team (Latest Contact Info) Description 12/05/2020 MyChart Message Enc [facility] Medical Group Multispecialty Care - [place] [address] [place] [address] [address] [place] [address] Ramírez Greene MD 1188 [facility] [address] [place], [place] [phone] ultrasound results Social History Tobacco Use Types [...] CDT Gender Identity Female 04/06/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 No / Unsure 11/18/2020 1:17 PM CDT documented as of this encounter Plan of Treatment Upcoming Encounters Date Type Department Care Team (Late st Contact Info) Description 09/19/2024 11:40 AM CDT Office Visit [facility] Medical Group Multispecialty [facility] - [place] [address] [address] [place] [address] Ramírez Greene MD [address] [address] documented as of this encounter Visit Diagnoses Not on filedocumented in this encounter Additional Health Concerns Infection Onset Date Last Indicated Resolved Time COVID-19 Rule Out 02/18/2021 02/18/2021 02/18/2021 4:21 PM CDT COVID-19 Rule Out 03/23/2021 03/23/2021 03/25/2021 1:17 AM DIESEL TRUCK DRIVER COVID-19 Rule Out 01/25/2022 01/25/2022 01/25/2022 12:34 PM CDT COVID-19 Rule Out 01/25/2022 01/25/2022 01/26/2022 3:16 PM CDT Assessment Noted Time PHQ-9 Depression Total Score: 4 11/19/19 21 2:14 PM CDT documented as of this encounter Care Teams Architect Internship Relationship Specialty Start Date End Date Ramí[place] [address] [place] [address] PCP - General INTERNAL MEDICINE 11/18/20 documented as of this encounter
--- OUTSIDE RECORDS SUMMARY | 2024-08-29 00:25 | XMS_ITS | Clinical Summary ---
Author Organization [address] Address [address] [place] [phone] Care Team Providers Care [employer] Teacher Name Role Phone Ramírez Greene MD Primary Care Provider [phone] Allergies Active Allergy Reactions Criticality Noted Date [...] Type Department Care Team Description 07/03/2024 Telephone [facility] Medical Group Pulmonary [place] [place] [phone] Meagan Ulloa MD Prior Auth (Sodium Oxybate 500MG/ML solution) 06/27/2024 Telephone [facility] Medical Group Pulmonology [facility] [address] [place] [phone] Meagan Ulloa MD 06/01/2024 Telephone [facility] Pulmonology [facility] [address] [place] [address] Meagan Ulloa MD Med Refill [...] on file Legal Sex Female 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
--- OUTSIDE RECORDS SUMMARY | 2024-08-29 00:25 | XMS_ITS | Encounter Summary ---
Author Organization 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 Sexual Orientation Straight 04/06/2021 9: 17 PM STRAIN TECHNICIAN documented as of this encounter Plan of Treatment Upcoming Encounters Date Type Department Care Team (Late Contact Info) Description 09/19/2024 11:40 AM CDT Office Visit [facility] - [place] [address] [address] [place] [address] Ramírez Greene MD [address] [place] [address] documented as of this encounter Visit Diagnoses Not on filedocumented in this encounter Additional Health Concerns Infection Onset Date Last Indicated Resolved Time COVID-19 Rule Out 01/25/2022 01/25/2022 01/25/2022 12:34 PM CDT COVID-19 Rule Out 01/25/2022 01/25/2022 01/26/2022 3:16 PM CDT Assessment Noted Time PHQ-9 Depression Total Score: 1 07/21/19 22 2:35 PM CDT documented as of this encounter Care Teams Geneticist Relationship Specialty Start Date End Date Ramírez Greene MD [facility] [address] [place] [address] PCP - General INTERNAL MEDICINE 11/18/20 documented as of this encounter
--- OUTSIDE RECORDS SUMMARY | 2024-08-29 00:25 | XMS_ITS | Encounter Summary ---
Author Organization [facility] Address [address] [place] [address] Care Team Providers Care Ladle Filler Name Role Phone Ramírez Greene MD Primary Care Provider [phone] Encounter Details Date Type Department Care Team (Latest Contact Info) Description 03/31/2021 [employer] Message Enc [facility] Medical Group Multispecialty Care - [place] [address] [place] [address] [address] [place] [address] Ramírez Greene MD 1188 [facility] [address] [place], [place] [phone] Urology Referral Social History Tobacco Use Types [...] CDT Gender Identity Female 04/06/2021 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 No / Unsure 04/01/2021 9:16 AM TIEING MACHINE OPERATOR documented as of this encounter Plan of Treatment Upcoming Encounters Date Type Department Care Team (Late st Contact Info) Description 09/19/2024 11:40 AM CDT Office Visit [facility] Medical Group Multispecialty [facility] - [place] [address] [address] [place] [address] Ramírez Greene MD [address] [address] documented as of this encounter Visit Diagnoses Not on filedocumented in this encounter Additional Health Concerns Infection Onset Date Last Indicated Resolved Time COVID-19 Rule Out 01/25/2022 01/25/2022 01/25/2022 12:34 PM CDT COVID-19 Rule Out 01/25/2022 01/25/2022 01/26/2022 3:16 PM CDT Assessment Noted Time PHQ-9 Depression Total Score: 2 12/17/19 21 2:34 PM CDT documented as of this encounter Care Teams Ladle Filler Relationship Specialty Start Date End Date Rmaírez Greene MD [address] [place] [address] PCP - General INTERNAL MEDICINE 11/18/20 documented as of this encounter
--- OUTSIDE RECORDS SUMMARY | 2024-08-29 00:25 | XMS_ITS | Patient Health Record ---
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 I regard upper nl TSH as 3, rena in pt with sx and Abs. Need see if evid of Hashimotos that would lower threshold for tx with LT4. Problem 145836352 Depression with anxiety (F41.8) Active confirmed Problem 28342473 Vitamin D deficiency (E55.9) Active confirmed Problem 74354158 HTN (hypertension), benign (I10) Active confirmed Problem 65695191 Irritable bowel syndrome (K58.9) Active confirmed Problem 00450866 Obstructive sleep apnea (G47.33) Active confirmed Problem 3887793 Migraine with aura (G43.109) Active confirmed Problem 57221046 Anxiety (F41.9) Active confirmed Problem 631318072 Chronic GERD (K21.9) Active confirmed Plan Of Treatment Pending Test Test Name Order Date CULTURE URINE(CENT-UR) 05/06/2015 Insurance Providers Payer Name Payer Address Payer Phone Subscriber Number Group Number Insured Name Patient Relationship to Insured Coverage Start Date Coverage End Date [id number] OOS PPO 1 [facility] [address] [address] [place], [place] [id number] Andrés Manzanares Spouse - patient is the spouse of the insured 7 6 Medications Administered Medication Instructions Date of Administration Dosage Notes Ketorolac (Toradol) 02/16/2017 60 mg NDC 0 [phone] Medical (General) History Medical History History ICD [...]
--- OUTSIDE RECORDS SUMMARY | 2024-08-29 00:25 | XMS_ITS | Referral Summary ---
Author Organization [address] Address [address] [place] [phone] Care Team Providers Care Windows Server Specialist Name Role Phone Ramírez Greene MD Primary Care Provider [phone] Encounters Date Type Department Care Team Description 07/03/2024 Telephone [facility] Pulmonary [place] [address] [place] [address] [address] [place] [address] Meagan Ulloa MD Prior Auth (Sodium Oxybate 500MG/ML solution) 06/27/[address] [facility] Medical Group Pulmonology [address] [place] [address] [place] [phone] Meagan Ulloa MD 06/01/2024 Telephone [facility] Pulmonology [address] [place] [address] [address] [place] [address] Meagan lUloa MD Med Refill (Pharmacy called into the [...] on file Legal Sex Female 8:16 AM PRIMARY CARE PHYSICIAN Gender Identity Not on file Sexual Orientation [...] Not on file Insurance IDPA Care Teams Windows Server Specialist Relationship Specialty Start Date End Date Ramírez Greene MD [address] [place], [place] [phone] PCP - General Internal Medicine 11/11/21
--- OUTSIDE RECORDS SUMMARY | 2024-08-29 00:25 | XMS_ITS | Encounter Summary ---
Author Organization [facility] Address [address] [place] [address] Care Team Providers Care Beauty Therapist Name Role Phone Ramírez Greene MD Primary Care Provider [phone] Encounter Details Date Type Department Care Team (Latest Contact Info) Description 12/26/2020 MyChart Message Enc [facility] Medical Group Multispecialty Care - [place] [address] [place] [address] [address] [place] [address] Ramírez Greene MD 1188 [facility] 157 [place], [place] [phone] RE:medication question Social History Tobacco Use Types [...] CDT Gender Identity Female 04/06/2021 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 No / Unsure 12/16/2020 2:18 PM CDT documented as of this encounter Plan of Treatment Upcoming Encounters Date Type Department Care Team (Late st Contact Info) Description 09/19/2024 11:40 AM CDT Office Visit [facility] Medical Group Multispecialty Care - [place] [address] [address] [place] [address] Ramírez Greene MD [address] [address] documented as of this encounter Visit Diagnoses Not on filedocumented in this encounter Additional Health Concerns Infection Onset Date Last Indicated Resolved Time COVID-19 Rule Out 02/18/2021 02/18/2021 02/18/2021 4:21 PM CDT COVID-19 Rule Out 03/23/2021 03/23/2021 03/25/2021 1:17 AM BLENDING TANK HELPER COVID-19 Rule Out 01/25/2022 01/25/2022 01/25/2022 12:34 PM CDT COVID-19 Rule Out 01/25/2022 01/25/2022 01/26/2022 3:16 PM CDT Assessment Noted Time PHQ-9 Depression Total Score: 2 12/17/19 21 2:34 PM CDT documented as of this encounter Care Teams Beauty Therapist Relationship Specialty Start Date End Date [place] [address] [place] [address] PCP - General INTERNAL MEDICINE 11/18/20 documented as of this encounter
--- OUTSIDE RECORDS SUMMARY | 2024-08-29 00:25 | XMS_ITS | Encounter Summary ---
Author Organization [facility] Address [address] [place] [address] Care Team Providers Care Plaster Mixer Name Role Phone Ramírez Greene MD Primary Care Provider [phone] Encounter Details Date Type Department Care Team (Late st Contact Info) Description 04/28/2024 MyChart Message Enc [address] [address] Ramírez Greene MD [address] [place] [phone] Colonoscopy Social History Tobacco Use Types Packs/Day [...] CDT Gender Identity Female 04/06/2021 9:17 PM CREDIT ADMINISTRATION SPECIALIST Sexual Orientation Straight 04/06/2021 9: 17 PM CREDIT ADMINISTRATION SPECIALIST documented as of this encounter Plan of Treatment Upcoming Encounters Date Type Department Care Team (Late st Contact Info) Description 09/19/2024 11:40 AM CDT [facility] [address] [address] [place], [place] [phone] Ramírez Greene MD [address] [address] documented as of this encounter Visit Diagnoses Not on filedocumented in this encounter Additional Health Concerns Assessment Noted Time PHQ-9 Depression Total Score: 13 11/29/ 024 7:43 AM CDT documented as of this encounter Care Teams Plaster Mixer Relationship Specialty Start Date End Date Ramírez Greene MD [address] [address] PCP - General INTERNAL MEDICINE 11/18/20 documented as of this encounter
[2024-08-29 08:05] VITALS: BP 111/88; PULSE 86; RESP 18; TEMP 36.6; O2SAT 97
[2024-08-29] MEDS: ACETAMINOPHEN 500 MG TABLET 1000 MG PO (08:22)
[2024-08-29] MEDS: LACTATED RINGERS 1,000 ML 30 ML IV CONT (08:35)
[2024-08-29 08:50] LABS: BEDSIDEPREGUCG Negative (Negative)
--- NOTE | 2024-08-29 09:02 | ECG_ITS ---
Test Date: 2024-08-29 09:17:13 Measurements Intervals [place] Rate: 73 P: 5 [place]: 167 QRS: 22 QRSD: 79 T: 14 QT: 385 QTc: 424 Interpretive Statements SINUS RHYTHM Compared to ECG 08/24/2024 11:13:09 ATRIAL FLUTTER NO LONGER PRESENT Electronically Signed On 08-29-2024 14:04:15 CDT by Yessenia Tomlin M.D.
--- NOTE | 2024-08-29 09:51 | WPDHPUPDATE1 ---
History and Physical Update Update Date/Time: 08/29/24 09:51 History and Physical has been reviewed, including an updated exam of the patient. There are NO changes in the patient's condition. Risks, benefits, and alternatives have been discussed and questions answered. Patient agrees to proceed with procedure.
--- NOTE | 2024-08-29 10:02 | P.PNAN_ITS ---
Anes - Initial Pre Proc Eval Procedure: Operation Date: 08/29/24 10:00 Proposed Procedures p Hysteroscopy with Removal Intrauterine Device - Alcon Esparza MD Date/Time: 08/29/24 10:02 Surgeon: Alcon Esparza MD Pre Op Diagnosis: Lost IUD String Patient Data Age: 48 Gender: F Height: 1.7 m Weight: 121 kg Last Vital Signs Temp 36.6 C 08/29/24 08:05 Pulse 86 08/29/24 08:05 Resp 18 08/29/24 08:05 BP 111/88 08/29/24 08:05 Pulse Ox 97 08/29/24 08:05 O2 Del Method Room Air 08/29/24 08:05 Allergies Allergy/AdvReac Type Severity Reaction Status Date / Time moxifloxacin (From Avelox) Allergy heart Verified 08/29/24 08:07 palpatations sulfamethoxazole (From Allergy Rash Verified 08/29/24 08:07 Septra) trimethoprim (From Septra) Allergy Rash Verified 08/29/24 08:07 Home Medications ?Medication ?Instructions ?Recorded ?Confirmed ?Type cholecalciferol (vitamin D3) 50 50 mcg PO DAILY 01/29/20 08/29/24 History mcg (2,000 unit) capsule losartan 25 mg tablet 25 mg PO DAILY 01/29/20 08/29/24 History omeprazole 20 mg capsule,delayed 20 mg PO DAILY 01/29/20 08/29/24 History release paroxetine HCl 40 mg tablet (Paxil) 40 mg PO DAILY 01/29/20 08/29/24 History levonorgestrel (Mirena) 1 device intrauterine ONCE 03/25/20 08/29/24 History sodium oxybate 500 mg/mL oral 4.5 g PO BID 02/06/21 08/29/24 History solution (Xyrem) buspirone 10 mg tablet 10 mg PO BID 06/21/24 08/29/24 History Chanca nicci 1,600 mg BYMOUTH BID kidney stones 08/16/24 08/16/24 History cetirizine 10 mg tablet 10 mg PO DAILY 08/16/24 08/29/24 History drospirenone (contraceptive) 4 mg 4 mg PO DAILY 08/16/24 08/29/24 History (28) tablet (Slynd) metformin 500 mg tablet 500 mg PO BID 08/16/24 08/29/24 History Laboratory Tests 08/29/24 08:10 POC Urine HCG, Qual Negative (Negative) Patient hx anesthesia problems: none Family hx anesthesia problems: none Results Review: All pre-operative results and documents have been reviewed as part of the pre- operative evaluation. PMF Past Medical History Medical History SINAN (obstructive sleep apnea) Abnormal colonoscopy polyp Kidney stone Migraines Hypertension Irritable bowel Depression Anxiety Acid reflux Surgical History Surgical History History of lithotripsy History of exploratory laparotomy History of cholecystectomy History of hernia repair right ingronial Previous section 2009 Family History Family History Grandparent Carcinoma of colon Father Cerebrovascular accident High cholesterol Mother Hypertension Social History Social History Smoking packs per day: 1 Smoking cigarettes per day: 20.0 Years smoked: 10 Smoking pack-years: 10.00 Smoking status: Former smoker Tobacco type: cigarettes Smoking end date: 04/25/02 Alcohol intake: current Alcohol use details: 6-9 drinks weekly Substance use: current Substance use type: marijuana Other substance usage details: marijuana vape, rarely Living arrangements: with family Anes - Eval Final PreProcedure Day of Procedure 08/29/24 10:02 Patient weight: morbidly obese Heart: regular rate and rhythm Lungs: clear to auscultation Airway: Mallampati scale class III Neurological: alert and oriented Last oral intake: >/= 8 hours ASA classification: III Emergent: no Anesthetic plan: proceed Anesthesia type and monitoring: general GIVS and standard monitoring Results Review: All pre-operative results and documents have been reviewed as part of the pre- operative evaluation. Informed Consent: The patient's anesthetic plan and its attendant risks and benefits were discussed with the patient/family/POA. Questions were solicited and answers provided to the satisfaction of the patient/family/POA.
[2024-08-29] MEDS: ceFAZolin 3 GM/D5W 100 ML 100 ML IVPB (10:16)
[2024-08-29] MEDS: LIDOCAINE 1% LOCAL INJ 10 ML VIAL INFILTRATE (10:32)
[2024-08-29 10:45] VITALS: BP 95/51; PULSE 82; RESP 18; O2SAT 100
[2024-08-29] MEDS: fentaNYL CITRATE INJ (*CRX) 100 MCG/2 ML VIAL 25 MCG IV PUSH ×4 (10:57→11:15)
[2024-08-29 11:10] VITALS: BP 92/51; PULSE 82; RESP 16; O2SAT 98
[2024-08-29 11:30] VITALS: BP 123/81; PULSE 76; RESP 16
[2024-08-29] MEDS: oxyCODONE HCL (*CRX) 5 MG TAB IR PO (11:52)
[2024-08-29 12:00] VITALS: BP 117/76; PULSE 75; RESP 16
--- NOTE | 2024-08-30 07:33 | W.PM.PROC2 ---
Procedure Note - Detailed Date of Procedure 08/30/24 Pre-op Diagnosis Lost IUD String Post-op Diagnosis Same Procedure Performed Hysteroscopic removal of IUD string Surgeon Alcon Esparza MD Anesthesia MAC and Local Indications Lost IUD string Findings IUD in the near horizontal position in the lower uterine segment Description of Procedure After informed consent was obtained patient was taken to the operating room and adequate IV sedation was administered. Attention was turned to the vagina. Speculum was inserted. Single-tooth tenaculum placed on the anterior lip of the cervix. 10cc of 1% lidocaine was injected at cervicovaginal interface at 2,5,8,10 position. The cervix was dilated to an 8 Ortiz dilator. The hysteroscope was inserted into the cavity. The IUD was noted in the lower uterine segment in the near horizontal position. The grasped was inserted through the scope and the IUD grasped and was removed intact. The rest of the cavity was normal. The hysteroscope was removed. Sponge count correct. The patient taken to recovery in stable condition. Estimated Blood Loss 5 Drains No Packing No Pathology None sent Complications No immediate complications Condition Stable Disposition Same day [facility] Billing Surgery - Charge Forward: Surgery Billing
== END 2024-08-29 12:08 | disposition home or self-care (01) ==
PROVIDERS: PCP Internal Medicine; Visit Provider Obstetrics & Gynecology
PROC: 0U5B8ZZ Destruction of Endometrium, Via Natural or Artificial Opening Endoscopic (ICD-10-PCS; CPT 58563; principal; 2024-08-29 10:00)
DX: T83.32XA Displacement of intrauterine contraceptive device, initial encounter (principal); I10 Essential (primary) hypertension; K58.9 Irritable bowel syndrome, unspecified; K21.9 Gastro-esophageal reflux disease without esophagitis; F32.A Depression, unspecified; F41.9 Anxiety disorder, unspecified; G47.33 Obstructive sleep apnea (adult) (pediatric); F12.90 Cannabis use, unspecified, uncomplicated; Y83.8 Other surgical procedures as the cause of abnormal reaction of the patient, or of later complication, without mention of misadventure at the time of the procedure; E66.01 Morbid (severe) obesity due to excess calories; Z68.41 Body mass index [BMI] 40.0-44.9, adult; Z79.84 Long term (current) use of oral hypoglycemic drugs; Z98.890 Other specified postprocedural states; Z90.49 Acquired absence of other specified parts of digestive tract; Z87.891 Personal history of nicotine dependence; Z87.442 Personal history of urinary calculi; Z80.0 Family history of malignant neoplasm of digestive organs; Z82.49 Family history of ischemic heart disease and other diseases of the circulatory system
CPT/HCPCS: 58579; 93005; A9270; J0690; J2003; J2250; J2704; J3010; J7120

== ENCOUNTER 2024-12-14 19:02 | Emergency (ER) | payer BC, SELFPAY ==
[2024-12-14] VITALS (13 sets, daily range): BP systolic 120–132; BP diastolic 73–84; PULSE 68–95; RESP 14–18; TEMP 36.8; O2SAT 95–99
--- NOTE | ~2024-12-14 | CT_ITS ---
EXAMINATION: CT BRAIN W/O DATE: 12/14/2024 20:11 INDICATION: Headache TECHNIQUE: Computed tomography (CT) of the head was performed without intravenous contrast. The dose-length product was 681.00 mGy-cm. Automated exposure control and iterative reconstruction technique were employed. COMPARISON: No prior studies for comparison. FINDINGS: Normal brain parenchymal volume for age. Normal alcazar-white differentiation. No acute intracranial hemorrhage, infarction, mass or mass effect. No ventriculomegaly or midline shift. Midline sagittal images demonstrate a normal corpus callosum, craniovertebral junction and sella turcica. Basilar cisterns are patent. Minimal mucosal thickening of the frontal sinuses. Mastoids are pneumatized. No depressed skull fractures. IMPRESSION: 1. No acute intracranial abnormality. Reviewed, dictated and finalized at location O.
--- OUTSIDE RECORDS SUMMARY | 2024-12-14 18:45 | XMS_ITS | Encounter Summary ---
Author Organization [facility] Healthcare Address [address] [place] [address] Care Team Providers Care Document Design Specialist Name Role Phone Ramírez Greene MD Primary Care Provider [phone] Reason for Visit * Reason Comments Headache Pt c/o strange pain in her head that comes and goes for about 3 hours Encounter Details Date Type Department Care Team (Late st Contact Info) Description 12/14/2024 6:45 PM CDT Office Visit [facility] Medical Group Convenient Care at [address] [address] Kayode Rosen NP [address] [place] [address] [address] [place] [address] Primary stabbing headache (Primary Dx) Social History Tobacco Use Types Packs/Day Years Used Date Smoking Tobacco: Former Cigarettes Q uit: 11/05/2010 Smokeless Tobacco: Never Comments Unknown Sex and Gender Information Value Date Recorded Sex Assigned at Not on file Legal Sex Female 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 Gender Identity Not on file Sexual Orientation Not on file documented as of this encounter Last Filed Vital Signs Vital Sign Reading Time Taken Comments Blood Pressure 114/70 12/14/2024 6:40 PM CDT Pulse 93 12/14/2024 6:40 PM CDT Temperature 36.3 C (97.3 F) 12/14/2024 6:40 PM CDT Respiratory Rate 16 12/14/2024 6:40 PM CDT Oxygen Saturation 97% 12/14/2024 6:40 PM CDT Inhaled Oxygen Concentration - - Weight 117.9 kg (260 lb) 12/14/2024 6:40 PM CDT Height 170.2 cm (5' 7) 12/14/2024 6:40 PM CDT Body Mass Index 40.72 12/14/2024 6:40 PM CDT documented in this encounter Plan of Treatment Not on file documented as of this encounter Visit Diagnoses Diagnosis Primary stabbing headache- Primary documented in this encounter Historical Medications * This list may reflect changes made after this encounter. naltrexone (DEPADE) 50 mg tablet Take 1 tablet (50 mg total) by mouth daily 12/04/2024 levonorgestreL (MIRENA) IUD once 03/25/2020 added in this encounter Care Teams Document Design Specialist Relationship Specialty Start Date End Date Ramírez Greene MD [address] [place] [address] PCP - General Internal Medicine 11/11/21 documented as of this encounter
--- OUTSIDE RECORDS SUMMARY | 2024-12-14 18:45 | XMS_ITS | Encounter Summary ---
Author Organization [facility] Healthcare Address [address] [place] [address] Care Team Providers Care Lead Former Name Role Phone Ramírez Greene MD Primary Care Provider [phone] Reason for Visit * Reason Comments Headache Pt c/o strange pain in her head that comes and goes for about 3 hours Encounter Details Date Type Department Care Team (Late st Contact Info) Description 12/14/2024 6:45 PM CDT Office Visit [facility] Medical Group Convenient Care at [address] [address] Kayode Rosen NP [address] [place] [address] [address] [place] [address] Primary stabbing headache (Primary Dx) Social History Tobacco Use Types Packs/Day Years Used Date Smoking Tobacco: Former Cigarettes Q uit: 11/05/2010 Smokeless Tobacco: Never Comments Unknown Sex and Gender Information Value Date Recorded Sex Assigned at Not on file Legal Sex Female 8:16 AM BATCH OR CONTINUOUS STILL OPERATOR Gender Identity Not on file Sexual [...] 03/25/2020 added in this encounter Care Teams Lead Former Relationship Specialty Start Date End Date Ramírez Greene MD [address] [place] [address] PCP - General Internal Medicine 11/11/21 documented as of this encounter
--- OUTSIDE RECORDS SUMMARY | 2024-12-14 19:04 | XMS_ITS | Encounter Summary ---
Author Organization [facility] Address [address] [place] [address] Care Team Providers Care Kinesiotherapist Name Role Phone Ramírez Greene MD Primary Care Provider [phone] Encounter Details Date Type Department Care Team (Latest Contact Info) Description 02/17/[address] [facility] Medical Group Multispecialty Care - [facility] [address] [facility], [address] [place] [phone] Holger Hill MD [address] [place] [address] Follow Up/Update Social History Tobacco Use [...] CDT Gender Identity Female 04/06/2021 9:17 PM FOREST FIRE PREVENTION MANAGER Sexual Orientation Straight 04/06/2021 9: 17 PM FOREST FIRE PREVENTION MANAGER COVID-19 Exposure Response Date Recorded In the last month, have you been in contact with someone who was confirmed or suspected to have Coronavirus / COVID-19? No / Unsure 02/19/2020 12:48 PM CDT documented as of this encounter Plan of Treatment Upcoming Encounters Date Type Department Care Team (Late st Contact Info) Description 12/19/2024 2:00 PM CDT Appointment [place] [address] [place] [address] Henry Weeks MD [address] [place] [address] 02/08/2025 1:30 PM CDT Office Visit [place] [facility] [address] [place] [address] Cash López MD Three [facility] [address] [place] [address] 03/06/2025 8:40 AM FOREST FIRE PREVENTION MANAGER Office Visit [facility] Medical Group Multispecialty Care - [place] [address] [address] [place] [address] Ramí[place] [address] [place] [address] 157 [place] [address] 03/11/2025 12:15 PM FOREST FIRE PREVENTION MANAGER Office Visit [place] [facility]-[address] [place] [address] Henry Weeks MD Three [facility] [address] [place] [address] documented as of this encounter Visit Diagnoses Not on filedocumented in this encounter Additional Health Concerns Infection Onset Date Last Indicated Resolved Time COVID-19 Rule Out 02/18/2021 02/18/2021 02/18/2021 4:21 PM CDT COVID-19 Rule Out 03/23/2021 03/23/2021 03/25/2021 1:17 AM FOREST FIRE PREVENTION MANAGER COVID-19 Rule Out 01/25/2022 01/25/2022 01/25/2022 12:34 PM CDT COVID-19 Rule Out 01/25/2022 01/25/2022 01/26/2022 3:16 PM CDT documented as of this encounter Care Teams Kinesiotherapist Relationship Specialty Start Date End Date Ramírez Greene MD [address] [address] PCP - General INTERNAL MEDICINE 11/18/20 documented as of this encounter
--- OUTSIDE RECORDS SUMMARY | 2024-12-14 19:04 | XMS_ITS | Encounter Summary ---
Author Organization [facility] Address [address] [place] [address] Care Team Providers Care Meat Grader Name Role Phone Ramírez Greene MD Primary Care Provider [phone] Encounter Details Date Type Department Care Team (Latest Contact Info) Description 12/02/2022 MyChart Message Enc [facility] Medical Group Multispecialty Care - [place] [address] [place] [address] [address] [place], [place] [phone] Ramírez Greene MD 1188 [facility] [address] [place], [place] [phone] Rosacea medication Social History Tobacco Use Types [...] CDT Gender Identity Female 04/06/2021 9:17 PM SODDER Sexual Orientation Straight 04/06/2021 9: 17 PM SODDER documented as of this encounter Plan of Treatment Upcoming Encounters Date Type Department Care Team (Late st Contact Info) Description 12/19/2024 2:00 PM CDT Appointment [place] [address] Henry Weeks MD Three [facility], [address] [place] [address] 02/08/2025 1:30 PM CDT Office Visit [place] [facility] THREE [facility], [address] [place] [address] Cash López MD Three [facility]. [address] [place] [address] 03/06/2025 8:40 AM SODDER Office Visit [facility] Medical Group Multispecialty Care - [address] [place] [address] Ramírez Greene MD 118[address] [facility] [address] [place] [address] 03/11/2025 12:15 PM SODDER Office Visit [place] [facility] [place] [address] Henry Weeks MD Three [facility], [address] [place] [address] documented as of this encounter Visit Diagnoses Not on filedocumented in this encounter Additional Health Concerns Assessment Noted Time PHQ-9 Depression Total Score: 3 11/20/19 23 9:52 AM CDT documented as of this encounter Care Teams Meat Grader Relationship Specialty Start Date End Date Ramí[place] [address] [place] [address] [address] [place], [place] [id number] PCP - General INTERNAL MEDICINE 11/18/20 documented as of this encounter
--- OUTSIDE RECORDS SUMMARY | 2024-12-14 19:04 | XMS_ITS | Encounter Summary ---
Author Organization [facility] Address [address] [place] [address] Care Team Providers Care Tape Coater Name Role Phone Ramírez Greene MD Primary Care Provider [phone] Encounter Details Date Type Department Care Team (Late st Contact Info) Description 04/28/2024 MyChart Message Enc [facility] Medical Group Multispecialty Care - [place] [address] [place] [address] [address] [place], [place] [phone] Ramírez Greene MD 1188 [facility] [address] [place], [place] [phone] Colonoscopy Social History Tobacco Use Types Packs/Day [...] CDT Gender Identity Female 04/06/2021 9:17 PM ADDICTION COUNSELOR Sexual Orientation Straight 04/06/2021 9: 17 PM ADDICTION COUNSELOR documented as of this encounter Plan of Treatment Upcoming Encounters Date Type Department Care Team (Late st Contact Info) Description 12/19/2024 2:00 PM CDT Appointment [place] [address] Henry Weeks MD Three [facility], [address] [place] [address] 02/08/2025 1:30 PM CDT Office Visit [place] [facility] THREE [facility], [address] [place] [address] Cash López MD Three [facility]. [address] [place] [address] 03/06/2025 8:40 AM ADDICTION COUNSELOR Office Visit [facility] Medical Group Multispecialty Care - [place] [address] [address] [place] [address] Ramírez Greene MD 1188 [facility] [address] [place] [address] 03/11/2025 12:15 PM ADDICTION COUNSELOR Office Visit [place] [facility]-[address] [place] [address] Henry Weeks MD Three [facility], [address] [place] [address] documented as of this encounter Visit Diagnoses Not on filedocumented in this encounter Additional Health Concerns Assessment Noted Time PHQ-9 Depression Total Score: 13 024 7:43 AM CDT documented as of this encounter Care Teams Tape Coater Relationship Specialty Start Date End Date Ramí[place] [address] [place] [address] [address] [place], [place] [phone] PCP - General INTERNAL MEDICINE 11/18/20 documented as of this encounter
--- OUTSIDE RECORDS SUMMARY | 2024-12-14 19:04 | XMS_ITS | Encounter Summary ---
Author Organization [facility] Address [address] [place] [address] Care Team Providers Care Product Builder Name Role Phone Ramírez Greene MD Primary Care Provider [phone] Reason for Visit * Reason Onset Date Comments Appointment Request 08/30/2024 Encounter Details Date Type Department Care Team (Late st Contact Info) Description 08/30/2024 Indicative Softwaret Message Enc [facility] Medical Group Multispecialty Care - [place] [address] [address] [place], [place] [phone] Ramírez Greene MD [address] [place] [address] [address] [place] [address] Atrial flutters Social History Tobacco Use Types Packs/Day Years [...] CDT Gender Identity Female 04/06/2021 9:17 PM OFFICE MACHINE REPAIR SHOP SUPERVISOR Sexual Orientation Straight 04/06/2021 9: 17 PM OFFICE MACHINE REPAIR SHOP SUPERVISOR documented as of this encounter Progress Notes * Jessica Cook MA - 08/30/2024 4:16 PM CDT I called pt to schedule no answer. LVM dr. Greene requests pt comes in at 11:40 am on 08/31. documented in this encounter Plan of Treatment Upcoming Encounters Date Type Department Care Team (Late st Contact Info) Description 12/19/2024 2:00 PM CDT Appointment [place] [address] [facility] [place] [address] Henry Weeks MD [address] [place] [address] 02/08/2025 1:30 PM CDT Office Visit [place] [facility] [facility], [address] [place] [address] Cash López MD [address] [place] [address] 03/06/2025 8:40 AM OFFICE MACHINE REPAIR SHOP SUPERVISOR Office Visit [facility] [facility] Medical Group Multispecialty Care - [place] [address] [address] [place] [address] Ramírez Greene MD [address] [place] [address] 157 [place] [address] 03/11/2025 12:15 PM OFFICE MACHINE REPAIR SHOP SUPERVISOR Office Visit [place] [facility]-[address] [place] [address] Henry Weeks MD Three [facility] [address] [place] [address] documented as of this encounter Visit Diagnoses Not on filedocumented in this encounter Additional Health Concerns Assessment Noted Time PHQ-9 Depression Total Score: 9 06/01/19 25 3:13 PM OFFICE MACHINE REPAIR SHOP SUPERVISOR documented as of this encounter Care Teams Product Builder Relationship Specialty Start Date End Date Ramírez Greene MD [address] [address] PCP - General INTERNAL MEDICINE 11/18/20 documented as of this encounter
--- OUTSIDE RECORDS SUMMARY | 2024-12-14 19:04 | XMS_ITS | Encounter Summary ---
Author Organization [facility] Address [address] [place] [address] Care Team Providers Care Clinic Director Name Role Phone Ramírez Greene MD Primary Care Provider [phone] Encounter Details Date Type Department Care Team (Latest Contact Info) Description 12/05/2020 MyChart Message Enc [facility] Medical Group Multispecialty Care - [place] [address] [place] [address] [address] [place] [address] Ramírez Greene MD 118[address] [facility] [address] [place], [place] [phone] ultrasound results Social History Tobacco Use Types [...] CDT Gender Identity Female 04/06/2021 9:17 PM OIL AND GAS WELL TREATMENT OPERATOR Sexual Orientation Straight 04/06/2021 9: 17 PM OIL AND GAS WELL TREATMENT OPERATOR COVID-19 Exposure Response Date Recorded In the last month, have you been in contact with someone who was confirmed or suspected to have Coronavirus / COVID-19? No / Unsure 11/18/2020 1:17 PM CDT documented as of this encounter Plan of Treatment Upcoming Encounters Date Type Department Care Team (Late st Contact Info) Description 12/19/2024 2:00 PM CDT Appointment [place] [place] [address] Henry Weeks MD [address] [place] [address] 02/08/2025 1:30 PM CDT Office Visit [place] [facility] THREE [facility], [address] [place] [address] Cash López MD [address] [place] [address] 03/06/2025 8:40 AM OIL AND GAS WELL TREATMENT OPERATOR Office Visit [facility] Medical Group Multispecialty Care - [address] [place] [address] Ramí[place] [address] [place] [address] [address] [place] [address] 03/11/2025 12:15 PM OIL AND GAS WELL TREATMENT OPERATOR Office Visit [place] [facility] [place] [address] Henry Weeks MD [address] [place] [address] documented as of this encounter Visit Diagnoses Not on filedocumented in this encounter Additional Health Concerns Infection Onset Date Last Indicated Resolved Time COVID-19 Rule Out 02/18/2021 02/18/2021 02/18/2021 4:21 PM CDT COVID-19 Rule Out 03/23/2021 03/23/2021 03/25/2021 1:17 AM OIL AND GAS WELL TREATMENT OPERATOR COVID-19 Rule Out 01/25/2022 01/25/2022 01/25/2022 12:34 PM CDT COVID-19 Rule Out 01/25/2022 01/25/2022 01/26/2022 3:16 PM CDT Assessment Noted Time PHQ-9 Depression Total Score: 4 11/19/19 21 2:14 PM CDT documented as of this encounter Care Teams Clinic Director Relationship Specialty Start Date End Date Ramírez Greene MD [facility] [address] [address] PCP - General INTERNAL MEDICINE 11/18/20 documented as of this encounter
--- OUTSIDE RECORDS SUMMARY | 2024-12-14 19:04 | XMS_ITS | Encounter Summary ---
Author Organization [facility] Address [address] [place] [address] Care Team Providers Care Mainframe Systems Programmer Name Role Phone Ramírez Greene MD Primary Care Provider [phone] Encounter Details Date Type Department Care Team (Latest Contact Info) Description 12/26/2020 MyChart Message Enc [facility] Medical Group Multispecialty Care - [place] [address] [place] [address] [address] [place] [address] Ramírez Greene MD 1188 [facility] 157 [place], [place] [address] RE: Medication Questions Social History Tobacco Use [...] CDT Gender Identity Female 04/06/2021 9:17 PM HOT MILL SUPERVISOR Sexual Orientation Straight 04/06/2021 9: 17 PM HOT MILL SUPERVISOR COVID-19 Exposure Response Date Recorded In the last month, have you been in contact with someone who was confirmed or suspected to have Coronavirus / COVID-19? No / Unsure 12/16/2020 2:18 PM CDT documented as of this encounter Plan of Treatment Upcoming Encounters Date Type Department Care Team (Late st Contact Info) Description 12/19/2024 2:00 PM CDT Appointment [facility] [place] [address] Henry Weeks MD [address] [place] [address] 02/08/2025 1:30 PM CDT Office Visit [place] [facility] THREE [facility], [address] [place] [address] Cash López MD Three [facility]. [address] [place] [address] 03/06/2025 8:40 AM HOT MILL SUPERVISOR Office Visit [facility] Medical Group Multispecialty Care - [place] [address] [address] [place] [address] Ramí[place] [address] [place] [address] [address] [place] [address] 03/11/2025 12:15 PM HOT MILL SUPERVISOR Office Visit [place] [facility]-[address] [place] [address] Henry Weeks MD [address] [place] [address] documented as of this encounter Visit Diagnoses Not on filedocumented in this encounter Additional Health Concerns Infection Onset Date Last Indicated Resolved Time COVID-19 Rule Out 02/18/2021 02/18/2021 02/18/2021 4:21 PM CDT COVID-19 Rule Out 03/23/2021 03/23/2021 03/25/2021 1:17 AM HOT MILL SUPERVISOR COVID-19 Rule Out 01/25/2022 01/25/2022 01/25/2022 12:34 PM CDT COVID-19 Rule Out 01/25/2022 01/25/2022 01/26/2022 3:16 PM CDT Assessment Noted Time PHQ-9 Depression Total Score: 2 12/17/19 2:34 PM CDT documented as of this encounter Care Teams Mainframe Systems Programmer Relationship Specialty Start Date End Date Ramírez Greene MD [facility] [address] [address] PCP - General INTERNAL MEDICINE 11/18/20 documented as of this encounter
--- OUTSIDE RECORDS SUMMARY | 2024-12-14 19:04 | XMS_ITS | Encounter Summary ---
Author Organization [facility] Address [address] [place] [address] Care Team Providers Care Fire Dispatcher Name Role Phone Ramírez Greene MD Primary Care Provider [phone] Encounter Details Date Type Department Care Team (Late st Contact Info) Description 12/29/2021 [employer] Message Enc [facility] Medical Group Multispecialty Care - [address] [place] [address] [employer], [facility] Provider Test result Social History [...] CDT Gender Identity Female 04/06/2021 9:17 PM DIRECTOR PERIOPERATIVE Sexual Orientation Straight 04/06/2021 9: 17 PM DIRECTOR PERIOPERATIVE documented as of this encounter Plan of Treatment Upcoming Encounters Date Type Department Care Team (Late st Contact Info) Description 12/19/2024 2:00 PM CDT Appointment [place] [place] [address] Henry Weeks MD Three [facility] [address] [place] [address] 02/08/2025 1:30 PM CDT Office Visit [place] [facility] THREE [facility], [address] [place] [address] Cash López MD Three [facility]. [address] [place] [address] 03/06/2025 8:40 AM DIRECTOR PERIOPERATIVE Office Visit [facility] Medical Group Multispecialty Care - [place] [address] [address] [place] [address] Ramírez Greene MD [address] [place] [address] [address] 03/11/2025 12:15 PM DIRECTOR PERIOPERATIVE Office Visit [place] [facility]-[address] [address] Henry Weeks MD Three [facility], [address] [place] [address] documented as of this encounter Visit Diagnoses Not on filedocumented in this encounter Additional Health Concerns Infection Onset Date Last Indicated Resolved Time COVID-19 Rule Out 01/25/2022 01/25/2022 01/25/2022 12:34 PM CDT COVID-19 Rule Out 01/25/2022 01/25/2022 01/26/2022 3:16 PM CDT Assessment Noted Time PHQ-9 Depression Total Score: 1 07/21/19 22 2:35 PM CDT documented as of this encounter Care Teams Fire Dispatcher Relationship Specialty Start Date End Date [place] [address] [place] [address] PCP - General INTERNAL MEDICINE 11/18/20 documented as of this encounter
--- OUTSIDE RECORDS SUMMARY | 2024-12-14 19:04 | XMS_ITS | Encounter Summary ---
Author Organization [facility] Address [address] [place] [address] Care Team Providers Care Space Sciences Director Name Role Phone Ramírez Greene MD Primary Care Provider [phone] Encounter Details Date Type Department Care Team (Late st Contact Info) Description 02/02/[address] [facility] Medical Group Multispecialty Care - [facility] 3 [facility], [address] [place] [phone] Holger Hill MD [address] [place] [address] RE: Question Social History Tobacco Use Types [...] CDT Gender Identity Female 04/06/2021 9:17 PM VALET SERVICE ATTENDANT Sexual Orientation Straight 04/06/2021 9: 17 PM VALET SERVICE ATTENDANT COVID-19 Exposure Response Date Recorded In the last month, have you been in contact with someone who was confirmed or suspected to have Coronavirus / COVID-19? No / Unsure 01/19/2021 2:21 PM CDT documented as of this encounter Plan of Treatment Upcoming Encounters Date Type Department Care Team (Late st Contact Info) Description 12/19/2024 2:00 PM CDT Appointment [facility] [address] [place] [address] Henry Weeks MD [address] [place] [address] 02/08/2025 1:30 PM CDT Office Visit [facility] [address] [place] [address] Cash López MD [address] [place] [address] 03/06/2025 8:40 AM VALET SERVICE ATTENDANT Office Visit [facility] Medical Group Multispecialty Care - [place] [address] [address] [place] [address] Ramírez Greene MD [address] [place] [address] 157 [place] [address] 03/11/2025 12:15 PM VALET SERVICE ATTENDANT Office Visit [facility] [place] [address] Henry Weeks MD [address] [place] [address] documented as of this encounter Visit Diagnoses Not on filedocumented in this encounter Additional Health Concerns Infection Onset Date Last Indicated Resolved Time COVID-19 Rule Out 02/18/2021 02/18/2021 02/18/2021 4:21 PM CDT COVID-19 Rule Out 03/23/2021 03/23/2021 03/25/2021 1:17 AM VALET SERVICE ATTENDANT COVID-19 Rule Out 01/25/2022 01/25/2022 01/25/2022 12:34 PM CDT COVID-19 Rule Out 01/25/2022 01/25/2022 01/26/2022 3:16 PM CDT Assessment Noted Time PHQ-9 Depression Total Score: 2 12/17/19 2:34 PM CDT documented as of this encounter Care Teams Space Sciences Director Relationship Specialty Start Date End Date Ramírez Greene MD [address] [address] PCP - General INTERNAL MEDICINE 11/18/20 documented as of this encounter
--- OUTSIDE RECORDS SUMMARY | 2024-12-14 19:04 | XMS_ITS | Encounter Summary ---
Author Organization [facility] Address [address] [place] [address] Care Team Providers Care Tax Accounting Manager Name Role Phone Ramírez Greene MD Primary Care Provider [phone] Encounter Details Date Type Department Care Team (Late st Contact Info) Description 02/06/2020 MyChart Message Enc [facility] Medical Group Multispecialty Care - [facility] 3 [facility], [address] [place] [phone] Holger Hill MD [address] [place] [address] RE: Other Social History Tobacco Use Types Packs/Day Years Used Date Smoking Tobacco: Never Smokeless Tobacco: Never Alcohol Use Standard Drinks/Week Comments Yes 0 (1 standard drink = 0.6 oz pur e alcohol) Comments Unknown Sex and Gender Information Value Date Recorded Sex Assigned at Not on file Legal Sex Female 11:10 AM CDT Gender Identity Female 04/06/2021 9:17 PM PROGRAMMING INSTRUCTOR Sexual Orientation Straight 04/06/2021 9: 17 PM PROGRAMMING INSTRUCTOR COVID-19 Exposure Response Date Recorded In the last month, have you been in contact with someone who was confirmed or suspected to have Coronavirus / COVID-19? No / Unsure 01/31/2020 2:56 PM CDT documented as of this encounter Plan of Treatment Upcoming Encounters Date Type Department Care Team (Late st Contact Info) Description 12/19/2024 2:00 PM CDT Appointment [facility] [address] [place] [address] Henry Weeks MD [address] [place] [address] 02/08/2025 1:30 PM CDT Office Visit [facility] [address] [place] [address] Cash López MD Three [facility] [address] [place] [address] 03/06/2025 8:40 AM PROGRAMMING INSTRUCTOR Office Visit [facility] Medical Group Multispecialty Care - [address] [place] [address] Ramírez Greene MD [address] [place] [address] 157 [place] [address] 03/11/2025 12:15 PM PROGRAMMING INSTRUCTOR Office [facility] [address] Henry Weeks MD Three [facility] [address] [place] [address] documented as of this encounter Visit Diagnoses Not on filedocumented in this encounter Additional Health Concerns Infection Onset Date Last Indicated Resolved Time COVID-19 Rule Out 02/18/2021 02/18/2021 02/18/2021 4:21 PM CDT COVID-19 Rule Out 03/23/2021 03/23/2021 03/25/2021 1:17 AM PROGRAMMING INSTRUCTOR COVID-19 Rule Out 01/25/2022 01/25/2022 01/25/2022 12:34 PM CDT COVID-19 Rule Out 01/25/2022 01/25/2022 01/26/2022 3:16 PM CDT documented as of this encounter Care Teams Tax Accounting Manager Relationship Specialty Start Date End Date Ramírez Greene MD [address] [address] PCP - General INTERNAL MEDICINE 11/18/20 documented as of this encounter
--- OUTSIDE RECORDS SUMMARY | 2024-12-14 19:04 | XMS_ITS | Encounter Summary ---
Author Organization [facility] Address [address] [place] [address] Care Team Providers Care Van Owner Operator Name Role Phone Ramírez Greene MD Primary Care Provider [phone] Encounter Details Date Type Department Care Team (Late st Contact Info) Description 12/29/2021 YesGraph Message Enc [facility] Medical Group Multispecialty Care - [address] [place] [address] [employer], [facility] Provider Results Social History Tobacco Use [...] CDT Gender Identity Female 04/06/2021 9:17 PM POTLINE MONITOR Sexual Orientation Straight 04/06/2021 9: 17 PM POTLINE MONITOR documented as of this encounter Plan of Treatment Upcoming Encounters Date Type Department Care Team (Late st Contact Info) Description 12/19/2024 2:00 PM CDT Appointment [facility] [place] [address] Henry Weeks MD Three [facility] [address] [place] [address] 02/08/2025 1:30 PM CDT Office Visit [facility] THREE [facility], [address] [place] [address] Cash López MD Three [facility]. [facility] [address] [place] [address] 03/06/2025 8:40 AM POTLINE MONITOR Office Visit [facility] Medical Group Multispecialty Care - [place] [address] [address] [place] [address] Ramírez Greene MD [address] [address] 03/11/2025 12:15 PM POTLINE MONITOR Office Visit [facility] [address] Henry Weeks MD Three [facility] [address] [place] [address] documented as of this encounter Visit Diagnoses Not on filedocumented in this encounter Additional Health Concerns Infection Onset Date Last Indicated Resolved Time COVID-19 Rule Out 01/25/2022 01/25/2022 01/25/2022 12:34 PM CDT COVID-19 Rule Out 01/25/2022 01/25/2022 01/26/2022 3:16 PM CDT Assessment Noted Time PHQ-9 Depression Total Score: 1 07/21/19 22 2:35 PM CDT documented as of this encounter Care Teams Van Owner Operator Relationship Specialty Start Date End Date Ramírez Greene MD [address] [place] [address] PCP - General INTERNAL MEDICINE 11/18/20 documented as of this encounter
--- OUTSIDE RECORDS SUMMARY | 2024-12-14 19:04 | XMS_ITS | Encounter Summary ---
Author Organization [facility] Address [address] [place] [address] Care Team Providers Care Division Road Supervisor Name Role Phone Ramírez Greene MD Primary Care Provider [phone] Encounter Details Date Type Department Care Team (Latest Contact Info) Description 06/06/2023 Flowtownhart Message Enc [facility] Medical Group Multispecialty Care - [place] [address] [place] [address] [address] [place] [address] Ramírez Greene MD 1188 [facility] 157 [place], [place] [phone] Question about prescriptions Social History Tobacco Use [...] CDT Gender Identity Female 04/06/2021 9:17 PM PEDIATRIC ASSISTANT Sexual Orientation Straight 04/06/2021 9: 17 PM PEDIATRIC ASSISTANT documented as of this encounter Plan of Treatment Upcoming Encounters Date Type Department Care Team (Late st Contact Info) Description 12/19/2024 2:00 PM CDT Appointment [facility] [place] [place] [address] Henry Weeks MD Three [facility] [address] [place] [address] 02/08/2025 1:30 PM CDT Office Visit [facility] THREE [facility], [address] [place] [address] Cash López MD Three [facility]. [address] [place] [address] 03/06/2025 8:40 AM PEDIATRIC ASSISTANT Office Visit [facility] Medical Group Multispecialty Care - [place] [address] [address] [place] [address] Ramírez Greene MD 1188 [facility] 157 [place] [address] 03/11/2025 12:15 PM PEDIATRIC ASSISTANT Office Visit [facility] [place] [address] Henry Weeks MD Three [facility], [address] [place] [address] documented as of this encounter Visit Diagnoses Not on filedocumented in this encounter Additional Health Concerns Assessment Noted Time PHQ-9 Depression Total Score: 3 11/20/19 23 9:52 AM CDT documented as of this encounter Care Teams Division Road Supervisor Relationship Specialty Start Date End Date Ramí[place] [address] [place] [address] 157 [place] [address] PCP - General INTERNAL MEDICINE 11/18/20 documented as of this encounter
--- OUTSIDE RECORDS SUMMARY | 2024-12-14 19:04 | XMS_ITS | Encounter Summary ---
Author Organization [facility] Address [address] [place] [address] Care Team Providers Care Child Day Care Provider Name Role Phone Ramírez Greene MD Primary Care Provider [phone] Encounter Details Date Type Department Care Team (Late st Contact Info) Description 01/27/2022 Copybar Message Enc [facility] Medical Group Multispecialty Care - [address] [place] [address] [employer], [facility] Provider strep culture Social History Tobacco Use [...] CDT Gender Identity Female 04/06/2021 9:17 PM HYDROCHLORIC MANUFACTURING SUPERVISOR Sexual Orientation Straight 04/06/2021 9: 17 PM HYDROCHLORIC MANUFACTURING SUPERVISOR documented as of this encounter Plan of Treatment Upcoming Encounters Date Type Department Care Team (Late st Contact Info) Description 12/19/2024 2:00 PM CDT Appointment [facility] [place] [address] Henry Weeks MD Three [facility] [address] [place] [address] 02/08/2025 1:30 PM CDT Office Visit [facility] [address] [facility], [address] [place] [address] Cash López MD Three [facility]. [address] [place] [address] 03/06/2025 8:40 AM HYDROCHLORIC MANUFACTURING SUPERVISOR Office Visit [facility] Group Multispecialty Care - [place] [address] [address] [place] [address] Ramírez Greene MD [address] [address] 03/11/2025 12:15 PM HYDROCHLORIC MANUFACTURING SUPERVISOR Office Visit [facility] [address] Henry Weeks MD Three [facility], [address] [place] [address] documented as of this encounter Visit Diagnoses Not on filedocumented in this encounter Additional Health Concerns Assessment Noted Time PHQ-9 Depression Total Score: 1 07/21/19 22 2:35 PM CDT documented as of this encounter Care Teams Child Day Care Provider Relationship Specialty Start Date End Date Ramírez Greene MD 1188 [facility] 157 [place] [address] PCP - General INTERNAL MEDICINE 11/18/20 documented as of this encounter
--- OUTSIDE RECORDS SUMMARY | 2024-12-14 19:04 | XMS_ITS | Patient Health Record ---
Author Organization [facility] Address [address] [facility] [address] [place] [address] Care Team Providers Care Drive Away Driver Name Role Phone Ashleigh MUNSON, Maxwell Unavailable Unavailable Reason For Referral No Information Medications Medication SIG (Take, Route, Frequency, Duration) Notes Start Date End Date Status Paxil oral *Pick strength-f orm from Medispan for eRX* Active PriLOSEC oral *Pick strength-f orm from Medispan for eRX* Active Modafinil oral *Pick strength-f orm from Medispan for eRX* Active Xyrem 500 mg/mL Oral Acti ve losartan-hydrochlor othiazide oral *Reorder from Medispan for eRx and Interaction Alerts* Active Vitamin D3 125 MCG (5000 UT) Oral Active Problems Problem Type SNOMED Code ICD Code Onset Dates Problem Status W/U Status Risk Notes Problem Disorder of right patellofemoral joint (778378047673416) Patellofemoral disorders, 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) 02/17/20 17 Active confirmed Problem Arthralgia of the pelvic region and thigh (211878942) Pain in right hip (M25.551) 02/17/20 17 Active confirmed Problem Pain in right knee (M25.561) 02/17/20 17 Active confirmed Problem Disorder of right hip joint (disorder) (8427458150579006 2) Other specified joint disorders, right hip (M25.851) 02/23/20 17 Active confirmed Plan Of Treatment No Information Insurance Providers Payer Name Payer Address Payer Phone Subscriber Number Group Number Insured Name Patient Relationship to Insured Coverage Start Date Coverage End Date BCBS Other 1 [facility] [address] [place], [place] [id number] Andria Manzanares Self - patient is the insured Medical (General) History Surgical History Surgery Date(Month/Year) Other Surgical History: LITHOTRYPSY - Ph reesia 02/16/2017; 2017-02-16 Cholycystectomy: - Carlos 02/16/2017; 2017-02-16 c section: - Phrteresa 02/16/2017; 2016-04 Hernia repair: - Phreesia 02/16/2017; 08-02-25
--- OUTSIDE RECORDS SUMMARY | 2024-12-14 19:04 | XMS_ITS | Encounter Summary ---
Author Organization [facility] Address [address] [place] [address] Care Team Providers Care Java Technical Architect Name Role Phone Ramírez Greene MD Primary Care Provider [phone] Encounter Details Date Type Department Care Team (Latest Contact Info) Description 12/26/2020 MyChart Message Enc [facility] Multispecialty Care - [place] [address] [place] [address] [address] [place] [address] Ramírez Greene MD 1188 [facility] 157 [place], [place] [phone] RE:medication question Social History Tobacco Use Types [...] CDT Gender Identity Female 04/06/2021 9:17 PM CASINO INVESTIGATOR Sexual Orientation Straight 04/06/2021 9: 17 PM CASINO INVESTIGATOR COVID-19 Exposure Response Date Recorded In the last month, have you been in contact with someone who was confirmed or suspected to have Coronavirus / COVID-19? No / Unsure 12/16/2020 2:18 PM CDT documented as of this encounter Plan of Treatment Upcoming Encounters Date Type Department Care Team (Late st Contact Info) Description 12/19/2024 2:00 PM CDT Appointment [facility] [place] [address] Henry Weeks MD [address] [place] [address] 02/08/2025 1:30 PM CDT Office Visit [facility] THREE [facility], [address] [place] [address] Cash López MD Three [facility]. [address] [place] [address] 03/06/2025 8:40 AM CASINO INVESTIGATOR Office Visit [facility] Multispecialty Care - [place] [address] [address] [place] [address] Ramí[place] [address] [place] [address] [address] [place] [address] 03/11/2025 12:15 PM CASINO INVESTIGATOR Office Visit [facility] [place] [address] Henry Weeks MD [address] [place] [address] documented as of this encounter Visit Diagnoses Not on filedocumented in this encounter Additional Health Concerns Infection Onset Date Last Indicated Resolved Time COVID-19 Rule Out 02/18/2021 02/18/2021 02/18/2021 4:21 PM CDT COVID-19 Rule Out 03/23/2021 03/23/2021 03/25/2021 1:17 AM CASINO INVESTIGATOR COVID-19 Rule Out 01/25/2022 01/25/2022 01/25/2022 12:34 PM CDT COVID-19 Rule Out 01/25/2022 01/25/2022 01/26/2022 3:16 PM CDT Assessment Noted Time PHQ-9 Depression Total Score: 2 12/17/19 2:34 PM CDT documented as of this encounter Care Teams Java Technical Architect Relationship Specialty Start Date End Date Ramírez Greene MD [facility] [address] [address] PCP - General INTERNAL MEDICINE 11/18/20 documented as of this encounter
--- OUTSIDE RECORDS SUMMARY | 2024-12-14 19:04 | XMS_ITS | Patient Health Record ---
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 I regard upper nl TSH as 3, rena in pt with sx and Abs. Need see if evid of Hashimotos that would lower threshold for tx with LT4. Problem 150472216 Depression with anxiety (F41.8) Active confirmed Problem 17375308 Vitamin D deficiency (E55.9) Active confirmed Problem 17331806 HTN (hypertension), benign (I10) Active confirmed Problem 70497353 Irritable bowel syndrome (K58.9) Active confirmed Problem 70847937 Obstructive sleep apnea (G47.33) Active confirmed Problem 2753103 Migraine with aura (G43.109) Active confirmed Problem 39879111 Anxiety (F41.9) Active confirmed Problem 041198636 Chronic GERD (K21.9) Active confirmed Plan Of Treatment Pending Test Test Name Order Date CULTURE URINE(CENT-UR) 05/06/2015 Insurance Providers Payer Name Payer Address Payer Phone Subscriber Number Group Number Insured Name Patient Relationship to Insured Coverage Start Date Coverage End Date BCBSTN OOS PPO 1 [facility] [address] [place], [place] [id number] Andrés Manzanares Spouse - patient is the spouse of the insured 7 6 Medications Administered Medication Instructions Date of Administration Dosage Notes Ketorolac (Toradol) 02/16/2017 60 mg NDC 0 [phone] Medical (General) History Medical History History ICD Code SINAN (obstructive sleep apnea) 327.23 Obesity 278.00 Vitamin D deficiency 268.9 Narcolepsy and cataplexy 347.01 IBS (irritable bowel syndrome) 564.1 GERD (gastroesophageal reflux disease) 5 30.81 Anxiety and depression 300.4 Migraine with and without aura Gestational diabetes HTN (hypertension), benign I10 thyroid problems kidney stones precancerous polyp Surgical History Surgery Date(Month/Year) hernia repair lithotripsy 2011 cholecystectomy 09/2009 kidney stone removal laperoscopy Hospitalization History Reason Date(Month/Year) see above surgery list
--- OUTSIDE RECORDS SUMMARY | 2024-12-14 19:04 | XMS_ITS | Encounter Summary ---
Author Organization [facility] Address [address] [place] [address] Care Team Providers Care Procurement Officer Name Role Phone Ramírez Greene MD Primary Care Provider [phone] Encounter Details Date Type Department Care Team (Late st Contact Info) Description 10/12/2022 MyChart Message Enc [facility] Medical Group Multispecialty Care - [place] [address] [address] [place] [address] Ramí[place] [address] [place] [address] [address] [place], [place] [id number] Blood Type Social History Tobacco Use Types [...] CDT Gender Identity Female 04/06/2021 9:[address] SCAN TECHNOLOGIST Sexual Orientation Straight 04/06/2021 9: [address] SCAN TECHNOLOGIST COVID-19 Exposure Response Date Recorded In the last 10 days, have yo u been in contact with someone who was confirmed or suspected to have Coronavirus/COVID-19? No / Unsure 09/22/2022 2:00 PM CDT documented as of this encounter Plan of Treatment Upcoming Encounters Date Type Department Care Team (Late st Contact Info) Description 12/19/2024 2:00 PM CDT Appointment [facility] [address] [facility] [place] [address] Henry Weeks MD Three [facility] [address] [place] [address] 02/08/2025 1:30 PM CDT Office Visit [facility] THREE [facility], [address] [place] [address] Cash López MD Three [facility]. [address] [place] [address] 03/06/2025 8:[address] SCAN TECHNOLOGIST Office Visit [facility] Medical Group Multispecialty Care - [place] [address] [address] [place], [place] [address] Ramírez Greene MD [address] [place] [id number] 03/11/2025 12:[address] SCAN TECHNOLOGIST Office Visit [facility] [place] [address] Henry Weeks MD Three [facility] [address] [place] [address] documented as of this encounter Visit Diagnoses Not on filedocumented in this encounter Additional Health Concerns Assessment Noted Time PHQ-9 Depression Total Score: 1 07/21/19 22 2:35 PM CDT documented as of this encounter Care Teams Procurement Officer Relationship Specialty Start Date End Date Ramírez Greene MD [address] [place] [address] 157 [place] [address] PCP - General INTERNAL MEDICINE 11/18/20 documented as of this encounter
--- OUTSIDE RECORDS SUMMARY | 2024-12-14 19:04 | XMS_ITS | Encounter Summary ---
Author Organization [facility] Address [address] [place] [address] Care Team Providers Care Property Master Name Role Phone Ramírez Greene MD Primary Care Provider [phone] Encounter Details Date Type Department Care Team (Latest Contact Info) Description 03/31/2021 Vuzet Message Enc [facility] Medical [facility] Multispecialty Care - [place] [address] [place] [address] [address] [place] [address] Ramírez Greene MD [address] [facility] [address] [place], [place] [id number] Urology Referral Social History Tobacco Use Types [...] CDT Gender Identity Female 04/06/2021 9:17 PM VISUAL MERCHANDISE MANAGER Sexual Orientation Straight 04/06/2021 9: 17 PM VISUAL MERCHANDISE MANAGER COVID-19 Exposure Response Date Recorded In the last month, have you been in contact with someone who was confirmed or suspected to have Coronavirus / COVID-19? No / Unsure 04/01/2021 9:16 AM VISUAL MERCHANDISE MANAGER documented as of this encounter Plan of Treatment Upcoming Encounters Date Type Department Care Team (Late st Contact Info) Description 12/19/2024 2:00 PM CDT Appointment [facility] [address] [facility] [place] [address] Henry Weeks MD [address] [place] [address] 02/08/2025 1:30 PM CDT Office Visit [facility] THREE [facility], [address] [place] [address] Cash López MD [address] [facility] [address] [place] [address] 03/06/2025 8:40 AM VISUAL MERCHANDISE MANAGER Office Visit [facility] Medical Group Multispecialty Care - [address] [place] [address] Ramí[place] [address] [place] [address] [address] [place] [address] 03/11/2025 12:15 PM VISUAL MERCHANDISE MANAGER Office Visit [facility] [place] [address] Henry Weeks MD [address] [place] [address] documented as of this encounter Visit Diagnoses Not on filedocumented in this encounter Additional Health Concerns Infection Onset Date Last Indicated Resolved Time COVID-19 Rule Out 01/25/2022 01/25/2022 01/25/2022 12:34 PM CDT COVID-19 Rule Out 01/25/2022 01/25/2022 01/26/2022 3:16 PM CDT Assessment Noted Time PHQ-9 Depression Total Score: 2 12/17/19 2:34 PM CDT documented as of this encounter Care Teams Property Master Relationship Specialty Start Date End Date Ramírez Greene MD [facility] [address] PCP - General INTERNAL MEDICINE 11/18/20 documented as of this encounter
--- OUTSIDE RECORDS SUMMARY | 2024-12-14 19:04 | XMS_ITS | Encounter Summary ---
Author Organization [facility] Address [address] [place] [address] Care Team Providers Care Dog Breeder Name Role Phone Ramírez Greene MD Primary Care Provider [phone] Encounter Details Date Type Department Care Team (Latest Contact Info) Description 07/27/2023 MyChart Message Enc [facility] Medical [facility] Multispecialty Care - [place] [address] [place] [address] [address] [place] [address] Ramírez Greene MD [address] [facility] [address] [place] [address] Follow-up # to hopefully help with your dad's placement in a memory group home Social History Tobacco Use Types Packs/Day Years [...] CDT Gender Identity Female 04/06/2021 9:17 PM CERTIFIED PHLEBOTOMIST Sexual Orientation Straight 04/06/2021 9: 17 PM CERTIFIED PHLEBOTOMIST documented as of this encounter Plan of Treatment Upcoming Encounters Date Type Department Care Team (Late st Contact Info) Description 12/19/2024 2:[address] [facility] [place] [address] Henry Weeks MD Three [facility] [address] [place] [address] 02/08/2025 1:30 PM CDT Office Visit [facility] THREE [facility], [address] [place] [address] Cash López MD Three [facility]. [address] [place] [address] 03/06/2025 8:40 AM CERTIFIED PHLEBOTOMIST Office Visit [facility] Medical Group Multispecialty Care - [place] [address] [address] [place] [address] Ramírez Greene MD [address] [place] [address] 03/11/2025 12:15 PM CERTIFIED PHLEBOTOMIST Office Visit [facility] [address] Henry Weeks MD Three [facility], [address] [place] [address] documented as of this encounter Visit Diagnoses Not on filedocumented in this encounter Additional Health Concerns Assessment Noted Time PHQ-9 Depression Total Score: 15 04/2 024 4:35 PM CDT documented as of this encounter Care Teams Dog Breeder Relationship Specialty Start Date End Date Ramírez Greene MD [address] [place] [address] PCP - General INTERNAL MEDICINE 11/18/20 documented as of this encounter
--- OUTSIDE RECORDS SUMMARY | 2024-12-14 19:04 | XMS_ITS | Clinical Summary ---
Author Organization [address] Address [address] [place] [phone] Care Team Providers Care Vp Purchasing Name Role Phone Ramírez Greene MD Primary Care Provider [phone] Allergies Active Allergy Reactions Criticality Noted Date Comments Moxifloxacin Palpitations Low 01/04/2020 Sulfamethoxazole Rash Medium 07/07/2021 Sulfamethoxazole-Trimethoprim Rash Medium 2019 Trimethoprim Rash Medium 07/07/2021 Medications ergocalciferol , vitamin D2, 50 mcg (2,000 unit) tablet Take by mouth Act jana losartan-hydro CHLOROthiazide (HYZAAR) 50-12.5 mg per tablet Take 1 tablet by mouth daily 05/29/19 21 Active omeprazole (PriLOSEC) 20 mg capsule Take 1 capsule (20 mg total) by mouth nightly 06/09/19 21 Active PARoxetine (PAXIL) 40 mg tablet 06/01/19 21 Active cetirizine (ZyrTEC) 10 mg tablet Take 1 tablet (10 mg total) by mouth daily 10/25/19 22 Active cholecalcifero l (VITAMIN D-3) 2000 unit tablet Take by mouth Active sodium oxybate 500 mg/mL solution Take 3.75 g by mouth 2 (two) times a day 450 mL 07/07/19 25 Active metFORMIN (GLUCOPHAGE) 500 mg tablet Take one tablet daily with breakfast for the first two weeks then change to two tablets daily thereafter with food. 06/30/19 25 Active Slynd tablet tablet Take 1 each (4 mg total) by mouth daily 09/22/19 25 Active buPROPion XL (WELLBUTRIN XL) 300 mg 24 hr tablet Take 1 tablet (300 mg total) by mouth daily 06/01/19 25 Active metroNIDAZOLE (METROCREAM) 0.75 % cream Apply topically 2 (two) times a day 06/01/19 25 Active modafiniL (PROVIGIL) 100 mg tablet Take 1 tablet (100 mg total) by mouth daily 30 tablet 11/22/19 25 025 Active levonorgestreL (MIRENA) IUD once 03/25/20 20 Active naltrexone (DEPADE) 50 mg tablet Take 1 tablet (50 mg total) by mouth daily 12/05/19 25 Active modafiniL (PROVIGIL) 200 mg tablet Take 1 tablet (200 mg total) by mouth daily 025 Discontinued Active Problems Problem Noted Date Diagnosed Date Breast lump in upper inner quadrant 12/14/2024 Cigarette nicotine dependence in remission 11/17 BMI [...] Encounters Date Type Department Care Team Description 12/14/2024 6:45 PM CDT Office Visit [facility] Medical [facility] Convenient Care at [address] [address] Kayode Rosen NP Primary stabbing headache (Primary Dx) 11/23/[address] [address] Meagan Ulloa MD Prior Auth 11/21/2024 11:00 AM CDT Office Visit [address] [address] Meagan Ulloa MD SINAN (obstructive sleep apnea) (Primary Dx); Primary narcolepsy with cataplexy; Cigarette nicotine dependence in remission; BMI 40.0-44.9, adult (HCC); Restless leg; Anxiety 11/21/2024 Orders Only [address] [address] Meagan Ulloa MD SINAN (obstructive sleep apnea) (Primary Dx) from Last 3 Months Medical History Medical [...] on file Legal Sex Female 8:16 AM MEDICAL LABORATORY TECHNICIAN Gender Identity Not on file Sexual Orientation [...] Mass Index 40.72 12/14/2024 6:40 PM CDT Plan of Treatment Health Maintenance Due Date Last Done Comments Breast Cancer Screening-Mammogram 1977 Cervical Cancer Screening 1977 Colon Cancer Screening-Colonoscopy 1977 Depression Screening 1977 Hepatitis C Screening 1977 Hepatitis B Screening 11/27/1995 Regular Well Visit/Exam 18-64 11/27/1995 Covid-19 Vaccine ( season) 2023 03/12/2021, 07/25/2020, 07/04/2020 Influenza Vaccine (#1) 2024 , 02/17/2022, 01/09/2021, Additional history exists DTaP/Tdap/Td Vaccine (2 - Td or Tdap) 11/18/2030 11/18/2020 Pneumococcal vaccine <65 Aged Out No longer eligible based on patient's age to complete this topic Insurance PENDING SALE TO [employer] ACC[employer] CHOICE Care Teams Vp Purchasing Relationship Specialty Start Date End Date Ramírez Greene MD [address] [place], [place] [id number] PCP - General Internal Medicine 11/11/21
--- OUTSIDE RECORDS SUMMARY | 2024-12-14 19:04 | XMS_ITS | Encounter Summary ---
Author Organization [facility] Address [address] [place] [address] Care Team Providers Care Certified Vehicle Fire Investigator Name Role Phone Ramírez Greene MD Primary Care Provider Encounter Details Date Type Department Care Team (Latest Contact Info) Description 12/04/2024 Results Follow-Up [facility] Medical Group Multispecialty Care - [place] [address] [address] [place], [place] [phone] Ramí[place] [address] [place] [address] 157 [place], [place] [phone] URINALYSIS AUTO DIP, MAGNESIUM, CBC W/DIFF AUTOMATED, Additional followed-up results: 4 Social History Tobacco Use Types Packs/Day Years Used Date Smoking Tobacco: Former Cigarettes Q uit: 2008 Smokeless Tobacco: Never Comments:Counseled by Dr. Franci pate. Alcohol Use Standard Drinks/Week Comments Yes 3 (1 standard drink = 0.6 oz pur e alcohol) weekends...social PHQ-2 Answer Date Recorded Patient Health Questionnaire-2 Score 1 12/04/2024 Comments No Sex and Gender Information Value Date Recorded Sex Assigned at Not on file Legal Sex Female 11:10 AM CDT Gender Identity Female 04/06/2021 9:17 PM CREPE BOX TENDER Sexual Orientation Straight 04/06/2021 9: 17 PM CREPE BOX TENDER documented as of this encounter Functional Status * Over the past 2 weeks, how often have you been bothered by any of the following problems? Question Answer Date of Assessment Author Status Little interest or pleasure in doing things Several days 12/04/2024 8:33 AM OSKART Jessica Cook MA Active Feeling down, depressed, or hopeless Not at all 12/04/2024 8:33 AM OSKART Keisha Cook MA Active Patient Health Questionnaire-2 Score 1 12/04/2024 8:33 AM CDT Jessica Cook MA Active * Question Answer Date of Assessment Author Status Trouble falling or staying asleep, or sleeping too much Not at all 12/04/2024 8:33 AM CDT Jessica Cook MA Active Feeling tired or having little energy Several days 12/04/2024 8:33 AM OSKART Jessica Cook MA Active Poor appetite or overeating Several days 12/04/2024 8:33 AM OSKART Jessica Cook MA Active Feeling bad about yourself - or that you are a failure or have let yourself or your family down Not at all 12/04/2024 8:33 AM Jessica Noe MA Active Trouble concentrating on things, such as reading the newspaper or watching television Several days 12/04/2024 8:33 AM OSKART Jessica Cook MA Active Moving or speaking so slowly that other people could have noticed? Or the opposite - being so fidgety or restless that you have been moving around a lot more than usual. Not at all 12/04/2024 8:33 AM Jessica Noe MA Active Thoughts that you would be better off or hurting yourself in some way Not at all 12/04/2024 8:33 AM Jessica Noe MA Active Patient Health Questionnaire-9 Score 4 12/04/2024 8:33 AM Jessica Noe MA Active * Over the last 2 weeks, how often have you been bothered by any of the following problems? Question Answer Date of Assessment Author Status Feeling nervous, anxious, or on edge 1 12/04/2024 8:33 AM Jessica Noe MA Act jana Not being able to stop or control worrying 1 12/04/2024 8:33 AM OSKART Jessica Cook MA Ac tive Worrying too much about different things 0 12/04/2024 8:33 AM CDT Jessica Cook MA Ac tive Trouble relaxing 1 12/04/2024 8:33 AM CDT Jessica Marc MA Active Being so restless that it is hard to sit still 0 12/04/2024 8:33 AM CDT Jessica Cook M A Active Becoming easily annoyed or irritable 1 12/04/2024 8:33 AM CDT Jessica Cook MA Act jana Feeling afraid as if something awful might happen 0 12/04/2024 8:33 AM CDT Jessica Cook MA Act jana PILAR-7 Total Score 4 12/04/2024 8:33 AM CDT Jessica Fallon ms, MA Active documented as of this encounter Plan of Treatment Upcoming Encounters Date Type Department Care Team (Late st Contact Info) Description 12/19/2024 2:00 PM CDT Appointment [facility] [place] [address] Henry Weeks MD Three [facility] [address] [place] [address] 02/08/2025 1:30 PM CDT Office Visit [facility], [address] [place] [address] Cash López MD Three [facility]. [facility] [address] [place] [address] 03/06/2025 8:40 AM CREPE BOX TENDER Office Visit [facility] Medical Group Multispecialty Care - [place] [address] [address] [place] [address] Ramírez Greene MD [address] [place] [address] 03/11/2025 12:15 PM CREPE BOX TENDER Office Visit [facility] [place] [address] Henry Weeks MD [facility], [address] [place] [address] documented as of this encounter Visit Diagnoses Not on filedocumented in this encounter Additional Health Concerns Assessment Noted Time PHQ-9 Depression Total Score: 4 12/05/19 25 8:33 AM CDT documented as of this encounter Care Teams Certified Vehicle Fire Investigator Relationship Specialty Start Date End Date [place] [address] [place] [address] [address] [place] [address] PCP - General INTERNAL MEDICINE 11/18/20 documented as of this encounter
--- OUTSIDE RECORDS SUMMARY | 2024-12-14 19:04 | XMS_ITS | Encounter Summary ---
Author Organization [facility] Address [address] [place] [address] Care Team Providers Care Senior Benefits Manager Name Role Phone Ramírez Greene MD Primary Care Provider Encounter Details Date Type Department Care Team (Late st Contact Info) Description 12/04/2024 MyChart Message Enc [facility] Medical Group Multispecialty Care - [place] [address] [address] [place], [place] [phone] [place] [address] [place] [address] [address] [place], [place] [id number] [employer] Social History Tobacco Use Types Packs/Day Years [...] CDT Gender Identity Female 04/06/2021 9:17 PM YARD PIPE GRADER Sexual Orientation Straight 04/06/2021 9: 17 PM YARD PIPE GRADER documented as of this encounter Functional Status * Over the past 2 weeks, how often have you been bothered by any of the following problems? Question Answer Date of Assessment Author Status Little interest or pleasure in doing things Several days 12/04/2024 8:33 AM CDT Jessica Cook MA Active Feeling down, depressed, [...] little energy Several days 12/04/2024 8:33 AM Jessica Noe MA Active Poor appetite or overeating Several [...] about different things 0 12/04/2024 8:33 AM OSKART Jessica Cook MA Ac tive Trouble relaxing [...] Info) Description 12/19/2024 2:00 PM CDT Appointment [facility] [place] [address] Henry Weeks MD Three [facility] [address] [place] [address] 02/08/2025 1:30 PM CDT Office Visit [facility], [facility] [address] [place] [address] Cash López MD [facility]. [facility] [address] [place] [address] 03/06/2025 8:40 AM YARD PIPE GRADER Office Visit [facility] Medical Group Multispecialty Care - [place] [address] [address] [place] [address] Ramírez Greene MD [address] [place] [address] 03/11/2025 12:15 PM YARD PIPE GRADER Office Visit [facility] [address] Henry Weeks MD Three [facility], [address] [place] [address] documented as of this encounter Visit Diagnoses Not on filedocumented in this encounter Additional Health Concerns Assessment Noted Time PHQ-9 Depression Total Score: 4 12/05/19 25 8:33 AM CDT documented as of this encounter Care Teams Senior Benefits Manager Relationship Specialty Start Date End Date Ramírez Greene MD [address] [facility] [address] [place] [address] PCP - General INTERNAL MEDICINE 11/18/20 documented as of this encounter
--- OUTSIDE RECORDS SUMMARY | 2024-12-14 19:05 | XMS_ITS | Clinical Summary ---
Author Organization [facility] Address [address] [place] [address] Care Team Providers Care Server Software Engineer Name Role Phone Ramírez Greene MD Primary Care Provider [phone] Allergies Active Allergy Reactions Criticality Noted Date Comments Moxifloxacin Tachycardia 01/04/2020 Sulfamethoxazole-Trimethoprim Rash Low 2019 Medications XYREM 500 MG/ML Solution Take 4 g by mouth 2 (two) times daily. 12/12/19 20 Active Cholecalciferol (VITAMIN D) 50 MCG (1999) Tab Active SLYND 4 MG Tab Take 4 mg by mouth daily. 09/22/19 25 Active modafinil (PROVIGIL) 100 MG tablet Take 1 tablet (100 mg total) by mouth daily. 11/22/19 25 025 Active buPROPion XL (WELLBUTRIN XL) 300 MG 24 hr tabletIndicatio ns:Mild episode of recurrent major depressive disorder,Anxiet y Take 1 tablet (300 mg total) by mouth daily. 30 tablet 12/05/19 25 Active cetirizine (ZYRTEC) 10 MG tabletIndicatio ns:Environmenta l and seasonal allergies Take 1 tablet (10 mg total) by mouth daily. 30 tablet 5 12/05/19 25 Active losartan-hydroC HLOROthiazide (HYZAAR) 50-12.5 MG tabletIndicatio ns:Essential hypertension Take 1 tablet by mouth daily. 90 tablet 3 12/05/19 25 Active metFORMIN (GLUCOPHAGE) 500 MG tabletIndicatio ns:Morbid obesity (CMS/HCC) Take 2 tablets (1,000 mg total) by mouth daily with breakfast. Take with food. 180 tablet 1 12/05/19 25 Active metroNIDAZOLE (METROCREAM) 0.75 % creamIndication s:Rosacea Apply topically 2 (two) times daily. 45 g 4 12/05/19 25 Active PARoxetine (PAXIL) 40 MG tabletIndicatio ns:Mild episode of recurrent major depressive disorder,Anxiet y Take 1 tablet (40 mg total) by mouth every morning. 90 tablet 12/05/19 25 Active omeprazole (PRILOSEC) 40 MG capsuleIndicati ons:Gastroesoph ageal reflux disease without esophagitis Take 1 capsule (40 mg total) by mouth daily. 90 capsule 1 12/05/19 25 Active naltrexone (DEPADE) 50 MG tabletIndicatio ns:Morbid obesity (CMS/HCC) Take 1 tablet (50 mg total) by mouth daily. 90 tablet 12/05/19 25 Active buPROPion XL (WELLBUTRIN XL) 300 MG 24 hr tabletIndicatio ns:Mild episode of recurrent major depressive disorder,Anxiet y Take 1 tablet (300 mg total) by mouth daily. 90 tablet 1 06/01/19 25 025 Discontinued metFORMIN (GLUCOPHAGE) 500 MG tabletIndicatio ns:Morbid obesity (CMS/HCC) Take one tablet daily with breakfast for the first two weeks then change to two tablets daily thereafter with food. 180 tablet 1 06/30/19 25 025 Discontinued(R eorder) PARoxetine (PAXIL) 40 MG tabletIndicatio ns:Mild episode of recurrent major depressive disorder,Anxiet y Take 1 tablet (40 mg total) by mouth every morning. 90 tablet 1 06/01/19 25 025 Discontinued losartan-hydroC HLOROthiazide (HYZAAR) 50-12.5 MG tabletIndicatio ns:Essential hypertension Take 1 tablet by mouth daily. 90 tablet 3 06/01/19 25 025 Discontinued(R eorder) metroNIDAZOLE (METROCREAM) 0.75 % creamIndication s:Rosacea Apply topically 2 (two) times daily. 45 g 4 06/01/19 25 025 Discontinued(R eorder) omeprazole (PRILOSEC) 40 MG capsuleIndicati ons:Gastroesoph ageal reflux disease without esophagitis TAKE 1 CAPSULE(40 MG) BY MOUTH DAILY 90 capsule 07/31/19 25 025 Discontinued(R eorder) cetirizine (ZYRTEC) 10 MG tabletIndicatio ns:Environmenta l and seasonal allergies TAKE 1 TABLET BY MOUTH EVERY DAY 30 tablet 5 09/12/19 25 025 Discontinued(R eorder) MISC NATURAL PRODUCTS OR Take 2 tablets by mouth daily. [place] 025 Discontinued(T herapy completed) buPROPion XL (WELLBUTRIN XL) 300 MG 24 hr tabletIndicatio ns:Mild episode of recurrent major depressive disorder,Anxiet y TAKE 1 TABLET(300 MG) BY MOUTH DAILY 30 tablet 12/01/19 25 025 Discontinued(R eorder) PARoxetine (PAXIL) 40 MG tabletIndicatio ns:Mild episode of recurrent major depressive disorder,Anxiet y TAKE 1 TABLET(40 MG) BY MOUTH EVERY MORNING 90 tablet 12/01/19 25 025 Discontinued(R eorder) tirzepatide (ZEPBOUND) 2.5 MG/0.5ML injectionIndica tions:Weight Loss Inject 2.5 mg into the skin once a week. Indications: Weight Loss 2 mL 2 12/05/19 025 Discontinued(C ost of medication) Active Problems Problem Noted Date Diagnosed Date Gastroesophageal reflux disease without esophagi tis 07/20/2021 Screening for colon cancer 02/09/2021 Overview (02/09/2021): Added automatically from request for surgery [id number] Essential hypertension 07/02/2020 Anxiety 07/02/2020 Overview (11/18/2020): [...] Encounters Date Type Department Care Team Description 12/04/2024 8:00 AM CDT [facility] [place] [address] [address] [address] [place] [address] Ramírez Greene MD Physical (Has been fasting ); Weight Problem; Follow Up (Chronic medical issues) 12/04/2024 Results Follow-Up [facility] [place] [address] [address] [address] [place] [address] Ramírez Greene MD URINALYSIS AUTO DIP, MAGNESIUM, CBC W/DIFF AUTOMATED, Additional followed-up results: 4 12/04/2024 MyChart Message Enc [facility] [place] [address] [address] [address] [place] [address] Ramírez Greene MD Zepbound 12/04/2024 Telephone [facility] - [address] [address] Ramírez Greene MD Medication Information 12/04/2024 Travel 2024 11:45 AM CDT Office Visit [facility] [address] [address] Henry Weeks MD Palpitations (Consult) 2024 Telephone [facility] [address] [place] [address] Cristiano Villasenor RMA Schedule Test (Echo & EP Referral) 2024 Travel 09/14/2024 11:20 AM CDT Office Visit [facility] - [place] [address] [place] [address] Ramírez Greene MD Follow Up; Atrial Flutter 09/14/2024 [facility] [place] [address] [place] [address] Ramírez Greene MD EKG WELCHALLEN ACQUIRED, TSH W/REFLEX 09/14/2024 Travel from Last 3 Months Immunizations Immunization Administration Dates Next Due Fluzone (IIV3, Trivalent, 0. 5 ML Prefilled Syringe) 06/01/2024 Fluzone 6 Months+ Quad (0.5 mL Prefilled Syringe) 02/17/2022,01/09/2021,03/01/2020 PFIZER COVID-19 (ORIGINAL FO RMULATION, PURPLE CAP) mRNA, LNP-S, PF, 30 MCG/0.3 ML DOSE 03/12/2021,07/25/2020,07/04/2020 Tdap (Adacel) 11/18/2020 Family History Medical History Relation Comments Alcohol Abuse Father Atrial fibrillation Father Dementia Father Early Hearing Loss Father Hyperlipidemia Father Stent Cardiac Father Transient ischemic attack Father Glaucoma Maternal Grandfather Stroke Maternal Grandfather Colon Cancer Maternal Grandmother 60s Diabetes Maternal Uncle Anxiety Mother Arthritis Mother Depression Mother Diabetes type II Mother Glaucoma Mother Hypertension Mother Kidney Stones Mother Macular Degeneration Mother Valve Disease Paternal Grandfather Relation Status Comments Father Alive Maternal Grandfather Maternal Grandmother Maternal Uncle Alive Mother Alive Paternal Grandfather Paternal Grandmother Social History Tobacco Use Types Packs/Day Years Used Date Smoking Tobacco: Former Cigarettes Q uit: 2008 Smokeless Tobacco: Never Tobacco Cessation:Counseling Given: Yes Comments:Counseled by Dr. Greene. Alcohol Use Standard Drinks/Week Comments Yes 3 (1 standard drink = 0.6 oz pur e alcohol) weekends...social PHQ-2 Answer Date Recorded Patient Health Questionnaire-2 Score 1 12/04/2024 Comments No Sex and Gender Information Value Date Recorded Sex Assigned at Not on file Legal Sex Female 11:10 AM CDT Gender Identity Female 04/06/2021 9:17 PM DIABETIC EDUCATOR Sexual Orientation Straight 04/06/2021 9: 17 PM DIABETIC EDUCATOR Last Filed Vital Signs Vital Sign Reading Time Taken Comments Blood Pressure 116/80 12/04/2024 8:05 AM CDT Pulse 82 12/04/2024 8:05 AM CDT Temperature 36.3 C (97.3 F) 12/04/2024 8:05 AM CDT Respiratory Rate 18 12/04/2024 8:05 AM CDT Oxygen Saturation 98% 12/04/2024 8:05 AM CDT Inhaled Oxygen Concentration - - Weight 118.1 kg (260 lb 6.4 oz) 12/04/2024 8:05 AM CDT Height 167.6 cm (5' 6) 12/04/2024 8:05 AM CDT Body Mass Index 42.03 12/04/2024 8:05 AM CDT Plan of Treatment Upcoming Encounters Date Type Department Care Team (Late st Contact Info) Description 12/19/2024 2:00 PM CDT Appointment [facility] [place] [address] Henry Weeks MD [facility], [address] [place] [address] 02/08/2025 1:30 PM CDT Office Visit [facility], [facility] [address] [place] [address] Cash López MD Three [facility] [address] [place] [address] 03/06/2025 8:40 AM DIABETIC EDUCATOR Office Visit [facility] Care - [address] [place] [address] Ramírez Greene MD [address] [place] [address] 03/11/2025 12:15 PM DIABETIC EDUCATOR Office Visit [facility] [address] [facility] [address] [place] [address] Henry Weeks MD Three [facility], [address] [place] [address] Health Maintenance Due Date Last Done Comments Cervical Cancer Screening Pap Smear (Age 30 to 64) Every 3 Years 1975 Hepatitis B Vaccines (1 of 3 - 19+ 3-dose series) 1996 COVID-19 Vaccine ( season) 2023 03/12/2021, 07/25/2020, 07/04/2020 Mammogram Screening 09/11/2025 09/12/2023, 07/20/2021, 12/12/2020 Annual Physical 12/04/2025 12/04/2024, 10/2023, 11/19/2022, Additional history exists Cervical Cancer Screening Pap with HPV Testing (Age 30 to 64) Every 5 Years 02/06/2026 02/06/2021 Cervical Cancer Screening with HPV 02/06/2026 DTaP, Tdap and Td Vaccines (2 - Td or Tdap) 11/18/2030 11/18/2020 Colorectal Cancer Screening Colonoscopy (10 Years) 04/13/2031 04/13/2021 Hepatitis C Completed 11/18/2020 PHQ-2 (Physician [place]) Completed 12/04/2024 Meningococcal B Vaccine Aged Out No l [...] Procedure Name Priority Date/Time Associated Diagnosis Comments HEMOGLOBIN, GLYCOSYLATED Routine 025 8:33 AM CDT Annual physical exam General medical exam Drug therapy TSH W/REFLEX Routine 12/04/2024 8:33 AM CDT Annual physical exam General medical exam Drug therapy LIPID PANEL Routine 12/04/2024 8:33 AM CDT Annual physical exam General medical exam Drug therapy COMPREHENSIVE METABOLIC PANEL Routine 12/04/2024 8:33 AM CDT Annual physical exam General medical exam Drug therapy CBC W/DIFF AUTOMATED Routine 12/04/2024 8:33 AM CDT Annual physical exam General medical exam Drug therapy MAGNESIUM Routine 12/04/2024 8:33 AM CDT Annual physical exam General medical exam Drug therapy COLLECTION VENOUS BLOOD VENIPUNCTURE Routine 12/04/2024 8:23 AM CDT Annual physical exam General medical exam Drug therapy URINALYSIS AUTO DIP Routine 12/04/2024 Annual physical exam General medical exam Drug therapy EVENT RECORDER (ECG) UP TO 30 DAYS COMPLETE Routine 10/17/2024 1:16 PM CDT Palpitation ELECTROCARDIOGRAM (NON MIDMARK ACQUIRED) Routine 09/14/2024 12:10 PM CDT Palpitation TSH W/REFLEX Routine 09/14/2024 11:58 AM CDT Drug therapy COLLECTION VENOUS BLOOD VENIPUNCTURE Routine 09/14/2024 11:50 AM CDT Drug therapy MAMMOGRAM GENERIC (SCAN ORDER) 09/12/2023 OUTSIDE CYTOPATH CERV/VAG INTERPRET (PAP) 02/06/2021 HEPATITIS C ANTIBODY Routine 11/18/2020 2:52 PM CDT Encounter for annual physical exam Encounter to establish care Encounter for general health examination Encounter for hepatitis C screening test for low risk patient from Last 3 Months or Most Recently Relevant to Health Maintenance Results * TSH W/REFLEX (12/04/2024 8:33 AM CDT) Only the most recent of2 resultswithin the time period is included. TSH 3.017 0.358 - 3.740 uIU/ML 12/04/2024 3:26 PM CDT [facility] 12/04/2024 8:33 AM CDT Ramírez Greene MD LABORATORY Final Result [address] [address], [place] [phone] * HEMOGLOBIN, GLYCOSYLATED (12/04/2024 8:33 AM CDT) HGB A1C 5.3 4.5 - 6.2 % 12/04/2024 3:47 PM CDT [facility] ESTIMATED AVG GLUCOSE 105 74 - 106 MG/DL 12/04/2024 3:47 PM CDT [facility] 12/04/2024 8:33 AM CDT Ramírez Greene MD LABORATORY Final Result Performing Organization Address City/[facility]/ZIP Co de Phone Number [facility] [address] [place] [address], [place] [phone] * (ABNORMAL) COMPREHENSIVE METABOLIC PANEL (12/04/2024 8:33 AM CDT) SODIUM S/P/B 143 136 - 145 MMOL/L 12/04/2024 3:26 PM CDT [facility] POTASSIUM S/P/B 3.9 3.5 - 5.1 MMOL/L 12/04/2024 3:26 PM CDT [facility] CHLORIDE S/P/B 104 98 - 107 MMOL/L 12/04/2024 3:26 PM T [facility] CO2 29.7 21 - 32 MMOL/L 12/04/2024 3:26 PM CDT [facility] GLUCOSE 95 70 - 99 MG/DL 12/04/2024 3:26 PM CDT [facility] BUN 15 7 - 18 MG/DL 12/04/2024 3:26 PM CDT [facility] CREATININE S/P/B 1.12(H) 0.55 - 1.02 MG/DL 12/04/2024 3:26 PM T [facility] CALCIUM S/P/B 9.7 8.4 - 10.5 MG/DL 12/04/2024 3:26 PM T [facility] BILIRUBIN TOTAL S/P/B 0.5 0.2 - 1.0 MG/DL 12/04/2024 3:26 PM T [facility] ALKALINE PHOSPHATASE S/P/B 94 39 - 100 U/L 12/04/2024 3:26 PM T [facility] AST 12(L) 15 - 37 U/L 12/04/2024 3:26 PM T [facility] ALT 25 14 - 59 U/L 12/04/2024 3:26 PM T [facility] TOTAL PROTEIN S/P/B 7.0 6.4 - 8.2 G/DL 12/04/2024 3:26 PM CDT [facility] ALBUMIN S/P/B 3.8 3.4 - 5.0 G/DL 12/04/2024 3:26 PM CDT [facility] ANION GAP 9.3 5 - 15 MMOL/L 12/04/2024 3:26 PM CDT [facility] Comment:REFERENCE RANGE NOT ESTABLISHED OSMOLALITY (CALC) 297 MOSM/KG 025 3:26 PM CDT [facility] Comment:REFERENCE RANGE NOT ESTABLISHED GFR ESTIMATE 61(L) >90 ML/MIN/1. 73 M2 12/04/2024 3:26 PM CDT [facility] GFR NOTES GFR REFERENCE S: 12/04/2024 3:26 PM CDT [facility] Comment: THE ESTIMATED GFR IS CALCULATED USING [...] ml/min/1.73 m2 G5,KIDNEY FAILURE: <15 ml/min/1.73 m2 12/04/2024 8:33 AM CDT Ramírez Greene MD LABORATORY Final Result [facility] [address] [place] [address], * (ABNORMAL) LIPID PANEL (12/04/2024 8:33 AM CDT) CHOLESTEROL 186 <200 MG/DL 12/04/2024 3:26 PM CDT [facility] TRIGLYCERIDES 92 <150 MG/DL 12/04/2024 3:26 PM CDT [facility] HDL 57 >40 MG/DL 12/04/2024 3:26 PM CDT [facility] LDL-C 111(H) <100 MG/DL 12/04/2024 3:26 PM CDT [facility] VLDL CALCULATION 18 5 - 28 MG/DL 12/04/2024 3:26 PM CDT [facility] CHOL/HDL RATIO 3.3 0.0 - 4.0 12/04/2024 3:26 PM CDT [facility] LDL/HDL 1.9 0.41 - 2.13 12/04/2024 3:26 PM CDT [facility] NON HDL CHOLESTEROL 129 <140 MG/DL 12/04/2024 3:26 PM CDT [facility] 12/04/2024 8:33 AM CDT Ramírez Greene MD LABORATORY Final Result [facility] [address] [place] [address], * (ABNORMAL) CBC W/DIFF AUTOMATED (12/04/2024 8:33 AM CDT) WBC 4.91 4.00 - 10.80 x10'3/uL 12/04/2024 2:15 PM CDT [facility] RBC 5.04 4.10 - 5.40 x10'6/uL 12/04/2024 2:15 PM CDT [facility] HGB 13.6 12.0 - 16.0 G/DL 12/04/2024 2:15 PM CDT [facility] HCT 42.1 36.0 - 47.0 % 12/04/2024 2:15 PM CDT [facility] MCV 83.5 78.0 - 100.0 FL 12/04/2024 2:15 PM CDT [facility] MCH 27.0 27.0 - 31.0 PG 12/04/2024 2:15 PM CDT [facility] MCHC 32.3(L) 33.0 - 36.0 G/DL 12/04/2024 2:15 PM CDT [facility] RDW 13.6 11.5 - 14.5 % 12/04/2024 2:15 PM CDT [facility] PLT 303 150 - 350 x10'3/uL 12/04/2024 2:15 PM CDT [facility] MPV 10.8(H) 7.4 - 10.4 FL 12/04/2024 2:15 PM CDT [facility] DIFFERENTIAL TYPE AUTOMATED DIFFERENTIAL 12/04/2024 2:15 PM CDT [facility] NEUTROPHILS % 43.8 % 12/04/2024 2:15 PM CDT [facility] LYMPHOCYTES % 42.8 % 12/04/2024 2:15 PM CDT [facility] MONOCYTES % 10.4 % 12/04/2024 2:15 PM CDT [facility] EOSINOPHILS % 2.2 % 12/04/2024 2:15 PM CDT [facility] BASOPHILS % 0.6 % 12/04/2024 2:15 PM CDT [facility] IMMATURE GRANS % 0.2 % 12/04/2024 2:15 PM CDT [facility] ABS. NEUTROPHILS 2.15 1.60 - 8.30 x10'3/uL 12/04/2024 2:15 PM CDT [facility] ABS. LYMPHOCYTES 2.10 0.80 - 4.70 x10'3/uL 12/04/2024 2:15 PM CDT [facility] ABS. MONOCYTES 0.51 0.00 - 1.50 x10'3/uL 12/04/2024 2:15 PM CDT [facility] ABS. EOSINOPHILS 0.11 0.00 - 0.40 x10'3/uL 12/04/2024 2:15 PM CDT [facility] ABS. BASOPHILS 0.03 0.00 - 0.20 x10'3/uL 12/04/2024 2:15 PM CDT [facility] ABS. IMMATURE GRANULOCYTES 0.01 0.00 - 0.03 x10'3/uL 12/04/2024 2:15 PM CDT [facility] 12/04/2024 8:33 AM CDT Ramírez Greene MD LABORATORY Final Result Performing Organization Address City/[facility]/ZIP Co de Phone Number [place] [address] [place] [address], * MAGNESIUM (12/04/2024 8:33 AM CDT) MAGNESIUM 1.8 1.8 - 2.4 MG/DL 12/04/2024 3:26 PM CDT [facility] 12/04/2024 8:33 AM CDT Ramírez Greene MD LABORATORY Final Result Performing Organization Address [facility] de Phone Number [place] [address] [place] [address], * (ABNORMAL) URINALYSIS AUTO DIP (12/04/2024) COLOR (U) AAYUSH(A) YELLOW [address], [place] TRANSPARENCY CLOUDY(A) CLEAR [address], [place] GLUCOSE (U) NEGATIVE NEGATIVE MG/DL [address], [place] BILIRUBIN (U) 1+ (SMALL)(A) NEGATIVE [address], [place] KETONES MG/DL (U) 15 (SMALL 1+)(A) NEGATIVE MG/DL [address], [place] SPECIFIC GRAVITY (U) 1.015 1.001 - 1.035 [address], [place] BLOOD (U) NEGATIVE NEGATIVE [address], [place] U PH 7.5 5.0 - 9.0 [address], [place] PROTEIN (U) 1+ (30)(A) NEGATIVE mg/dL [address], [place] UROBILINOGEN 4.0(A) 0.2 - 1.0 EU/dL = mg/dL [address], [place] NITRITES NEGATIVE NEGATIVE MG/DL [address], [place] LEUKOCYTES (U) NEGATIVE NEGATIVE [address], [place] URINE SPECIMEN OBTAINED BY CLEAN CATCH PROCEDURE / Unknown 12/04/2024 us Ramírez Greene MD URINE ORDERABLES Final Result [address], [place] [address] [facility] [address] [place] [address], * EVENT RECORDER (ECG) UP TO 30 DAYS COMPLETE (10/17/2024 1:16 PM CDT) Narrative [facility] - 10/17/2024 1:16 PM CDT [address] [place] [address] [address] DRIVER REPORT PATIENT NAME: Andria Grajeda : 1975 PCP: RAMÍREZ GREENE MD INTERPRETING DIET ASSISTANT: Demetrio Pineda MD INDICATION: Palpitations. Baseline Rhythm * The baseline rhythm was Sinus Rhythm with heart rates ranged between 52 and 152 beats per minute, with average rate of 85 beats per minute. A-V Conduction * No Second Degree AV Block Type II. * No Third Degree AV Block. * No Pauses. Supraventricular Arrhythmia * There were 806 Supraventricular Ectopic beats with a burden of <1%. * No Supraventricular Tachycardia. Ventricular Arrhythmia * There were 121 Ventricular Ectopic beats with a burden of <1%. * 1 Ventricular Tachycardia events - the longest episode was 1.9s on 09/16 20:48, and the fastest episode was 172 BPM on 09/16 20:48. Atrial Fibrillation * No Atrial Fibrillation. Patient Triggered Events * 47 patient triggered events, 47 had symptoms specified. SUMMARY: Normal monitor, no significant arrhythmia burden noted. No symptom rhythm correlation us Ramírez Greene MD CV VASCULAR ORDERABLES Final Res ult [facility] * EKG WELCHALLEN ACQUIRED (09/14/2024 12:10 PM CDT) 09/14/2024 12:1 0 PM CDT Narrative [facility] - 09/26/2024 6:10 PM CDT [place] [address] [place] [address] Test Date: 2024-09-14 Pat Name: ANDRIA GRAJEDA Department: 171 Room: Gender: Female Block Operator: : 1975 Requested By: RAMÍREZ GREENE Order Number: [id number] Reading MD: Ramírez Greene Measurements Intervals [place] Rate: 77 P: 12 CA: 167 QRS: 11 QRSD: 90 T: 4 QT: 391 QTc: 444 Interpretive Statements SINUS RHYTHM Procedure Note Ramírez Greene MD - 09/26/2024 [place] [address] [place] [address] Test Date: 2024-09-14 Pat Name: ANDRIA HECTORJIMMY Department: 171 Room: Gender: Female Block Operator: : 1975 Requested By: RAMÍREZ GREENE Order Number: [id number] Reading MD: Ramírez Greene Measurements Intervals [place] Rate: 77 P: 12 CA: 167 QRS: 11 QRSD: 90 T: 4 QT: 391 QTc: 444 Interpretive Statements SINUS RHYTHM Ramírez Greene MD PROCEDURES-ORDERABLE NO CHARGE F inal Result [facility] * MAMMOGRAM GENERIC (SCAN ORDER) (09/12/2023) Anatomical Region Laterality Modality Other 09/12/2023 [facility] Scanned SCANNING Final Resu lt * OUTSIDE CYTOPATH VAG/CERV PAP WITH HPV (02/06/2021) 02/06/2021 Narrative 02/06/2021 Ordered by an unspecified provider. us Documents Scanned SCANNING Final Result * HEPATITIS C ANTIBODY (11/18/2020 2:52 PM CDT) HEPATITIS C AB NON-REACTI VE NON-REACT MANJU 11/19/2020 2:28 PM CDT [facility] Comment: ANTIBODIES TO HCV NOT DETECTED. DOES NOT EXCLUDE THE POSSIBILITY OF EXPOSURE TO HCV. 11/18/2020 2:52 PM CDT Ramírez Greene MD LABORATORY Final Result [facility] [address] [place] [id number], [id number] from Last 3 Months or Most Recently Relevant to Health Maintenance Insurance Care Teams Server Software Engineer Relationship Specialty Start Date End Date Ramírez Greene MD [address] [place] [address] PCP - General INTERNAL MEDICINE 11/18/20
--- NOTE | 2024-12-14 19:53 | ED.GENADULT ---
HPI - General Adult General Chief complaint: Headache Stated complaint: headache Time Seen by Provider: 12/14/24 19:13 History of Present Illness HPI narrative: Patient is a 49-year-old female who presents the emergency department this evening complaining of a left-sided headache. States that she does get frequent migraines but was concerned because this felt different. States that she describes it as a shooting like pain to her left parietal region that is intermittent and. Denies recent falls or trauma. No additional symptoms or concerns at this time. Related Data Home Medications ?Medication ?Instructions ?Recorded ?Confirmed ?Last Taken ?Type cholecalciferol (vitamin D3) 50 50 mcg PO DAILY 01/29/20 08/29/24 08/26/24 History mcg (2,000 unit) capsule losartan 25 mg tablet 25 mg PO DAILY 01/29/20 08/29/24 08/28/24 History omeprazole 20 mg capsule,delayed 20 mg PO DAILY 01/29/20 08/29/24 08/28/24 History release paroxetine HCl 40 mg tablet (Paxil) 40 mg PO DAILY 01/29/20 08/29/24 08/29/24 History levonorgestrel (Mirena) 1 device intrauterine ONCE 03/25/20 08/29/24 08/29/24 History sodium oxybate 500 mg/mL oral 4.5 g PO BID 02/06/21 08/29/24 08/28/24 History solution (Xyrem) buspirone 10 mg tablet 10 mg PO BID 06/21/24 08/29/24 08/29/24 History Chanca nicci 1,600 mg BYMOUTH BID kidney stones 08/16/24 08/16/24 Unknown History cetirizine 10 mg tablet 10 mg PO DAILY 08/16/24 08/29/24 08/28/24 History metformin 500 mg tablet 500 mg PO BID 08/16/24 08/29/24 08/28/24 History Allergies Allergy/AdvReac Type Severity Reaction Status Date / Time moxifloxacin (From Avelox) Allergy heart Verified 12/14/24 19:13 palpatations sulfamethoxazole (From Allergy Rash Verified 12/14/24 19:13 Septra) trimethoprim (From Septra) Allergy Rash Verified 12/14/24 19:13 Review of Systems Review of Systems: All systems are reviewed and are negative unless stated otherwise in the HPI. [facility] Past Medical History Medical History SINAN (obstructive sleep apnea) Abnormal colonoscopy polyp Kidney stone Migraines Hypertension Irritable bowel Depression Anxiety Acid reflux Surgical History Surgical History History of lithotripsy History of exploratory laparotomy History of cholecystectomy History of hernia repair right ingronial Previous section 2010 Family History Family History Grandparent Carcinoma of colon Father Cerebrovascular accident High cholesterol Mother Hypertension Social History Social History Smoking packs per day: 1 Smoking cigarettes per day: 20.0 Years smoked: 10 Smoking pack-years: 10.00 Smoking status: Former smoker Tobacco type: cigarettes Smoking end date: 04/25/02 Alcohol intake: current Alcohol use details: 6-9 drinks weekly Substance use: current Substance use type: marijuana Other substance usage details: marijuana vape, rarely Living arrangements: with family Exam Narrative: General: Alert, awake, afebrile, in no acute distress. HEENT: PERRL, no rhinorrhea, no post nasal drip, oropharynx clear, no temporal tenderness to palpation. Neck: Trachea midline, no JVD, no lymphadenopathy. Cardiovascular: Regular rate and rhythm, no murmurs, rubs or gallops, no peripheral edema. Respiratory: Clear to auscultation bilaterally, no tachypnea, no wheezing, no rhonchi, no rubs, no respiratory distress. Abdomen: Soft, nontender, nondistended, no rebound, no guarding, no peritoneal signs. Musculoskeletal: No joint swelling or deformity, normal muscle tone. Skin: No rashes or petechia, no signs of infection. Psychiatric: Alert and oriented, normal behavior and judgment for situation. Neurological: Alert and oriented to person, place, and time. Follows all commands. No focal deficits, speech is clear and fluent. Course Vital Signs Vital signs: Vital Signs Temperature 98.2 F 12/14/24 19:06 Pulse Rate 95 12/14/24 19:06 Respiratory Rate 16 12/14/24 19:06 Blood Pressure 130/83 12/14/24 19:06 Pulse Oximetry 95 12/14/24 19:06 Oxygen Delivery Room Air 12/14/24 19:06 Temperature 98.2 F 12/14/24 19:06 Pulse Rate 95 12/14/24 19:06 Respiratory Rate 16 12/14/24 19:06 Blood Pressure 130/83 12/14/24 19:06 Pulse Oximetry 95 12/14/24 19:06 Oxygen Delivery Room Air 12/14/24 19:06 Medical Decision Making MDM Narrative Medical decision making narrative: The patient was evaluated by myself in the emergency department. History is obtained from patient who is an independent historian and physical exam was performed. External medical records were reviewed at this time. Patient does not want a migraine cocktail as she states that she does not have a headache at this time since the headache has been intermittent, she is only requesting CT brain. Imaging studies obtained included CT brain without IV contrast which was independently interpreted by me revealing no acute intracranial process, which is pending final radiology interpretation. Differential diagnosis considerations include migraine headache with aura, cluster headache, tension headache, trigeminal neuralgia. Comorbidities impacting this visit include history of migraines. I have evaluated and discussed social determinants of health with the patient that could potentially impact subsequent diagnosis and treatment plans. On repeat assessment of the patient, reevaluation revealed that the patient is doing well and is in no acute distress. Patient symptoms have improved since she arrived to our emergency department. Repeat vital signs were all reviewed and noted to be stable. Differential diagnosis and treatment plan were discussed with the patient at bedside. Patient agrees with discussion and after shared medical decision making agrees with discharge. All questions were answered to the patient's satisfaction. Patient will follow up with her PCP in 3-5 days. Patient was provided with strict return precautions and instructed to return to the emergency department if any new or worsening symptoms develop. The patient was discharged in stable condition. Vital Signs Vital Signs: Vital Signs Temperature 98.2 F 12/14/24 19:06 Pulse Rate 95 12/14/24 19:06 Respiratory Rate 16 12/14/24 19:06 Blood Pressure 130/83 12/14/24 19:06 Pulse Oximetry 95 12/14/24 19:06 Oxygen Delivery Room Air 12/14/24 19:06 Temperature 98.2 F 12/14/24 19:06 Pulse Rate 95 12/14/24 19:06 Respiratory Rate 16 12/14/24 19:06 Blood Pressure 130/83 12/14/24 19:06 Pulse Oximetry 95 12/14/24 19:06 Oxygen Delivery Room Air 12/14/24 19:06 Discharge Plan Discharge Clinical Impression: Migraine Patient Disposition: Home Condition: Improved Instructions: Antibiotic Form, Migraine Headache (ED) Additional Instructions: Please follow-up with the neurologist your provided with today within the next 3-5 days. Return to ED if any new or worsening symptoms develop. Patient Language: Bengali Prescriptions: No Action sodium oxybate [Xyrem] 500 mg/mL solution 4.5 g PO BID Rx Instructions: administer the first dose at bedtime and the second dose 2.5-4 hours later buspirone 10 mg tablet 10 mg PO BID Slynd 4 mg (28) tablet 4 mg PO DAILY Qty: 84 3RF losartan 25 mg tablet 25 mg PO DAILY paroxetine HCl [Paxil] 40 mg tablet 40 mg PO DAILY omeprazole 20 mg capsule,delayed release(DR/EC) 20 mg PO DAILY cholecalciferol (vitamin D3) 50 mcg (2,000 unit) capsule 50 mcg PO DAILY Mirena 20 mcg/24 hours (6 yrs) 52 mg intrauterine device 1 device intrauterine ONCE Rx Instructions: as a single dose metformin 500 mg tablet 500 mg PO BID cetirizine 10 mg tablet 10 mg PO DAILY Chanca nicci 1,600 mg tablet 1,600 mg BYMOUTH BID Follow-up/Referrals: Jc,MD Ramírez [Primary Care Provider, Unknown] Mario Arango MD [Physician, Neurology] - 3 Days Time of Disposition: 20:21
--- OUTSIDE RECORDS SUMMARY | 2024-12-14 20:26 | XMS_ITS | Encounter Summary ---
Author Organization [facility] Address [address] [place] [address] Care Team Providers Care Boiler Tenders Supervisor Name Role Phone Ramírez Greene MD Primary Care Provider [phone] Encounter Details Date Type Department Care Team (Latest Contact Info) Description 12/04/2024 Results Follow-Up [facility] Medical [facility] Multispecialty Care - [place] [address] [address] [place], [place] [id number] [place] [address] [place] [address] [address] [place], [place] [id number] URINALYSIS AUTO DIP, MAGNESIUM, CBC W/DIFF AUTOMATED, [...] CDT Gender Identity Female 04/06/2021 9:17 PM PEST CONTROL SERVICE SALES AGENT Sexual Orientation Straight 04/06/2021 9: 17 PM PEST CONTROL SERVICE SALES AGENT documented as of this encounter Functional Status [...] Info) Description 12/19/2024 2:00 PM CDT Appointment [facility] [place] [address] Henry Weeks MD Three [facility] [address] [place] [address] 02/08/2025 1:30 PM CDT Office Visit [facility], [address] [place] [address] Cash López MD Three [facility]. [facility] [address] [place] [address] 03/06/2025 8:40 AM PEST CONTROL SERVICE SALES AGENT Office Visit [facility] Medical Group Multispecialty Care - [place] [address] [address] [place] [address] Ramírez Greene MD [address] [place] [address] 03/11/2025 12:15 PM PEST CONTROL SERVICE SALES AGENT Office Visit [facility] [place] [address] Henry Weeks MD [facility], [address] [place] [address] documented as of this encounter Visit Diagnoses Not on filedocumented in this encounter Additional Health Concerns Assessment Noted Time PHQ-9 Depression Total Score: 4 12/05/19 25 8:33 AM CDT documented as of this encounter Care Teams Boiler Tenders Supervisor Relationship Specialty Start Date End Date Ramí[place] [address] [place] [address] [address] [place] [address] PCP - General INTERNAL MEDICINE 11/18/20 documented as of this encounter
--- OUTSIDE RECORDS SUMMARY | 2024-12-14 20:26 | XMS_ITS | Encounter Summary ---
Author Organization [facility] Address [address] [place] [address] Care Team Providers Care Butcher Supervisor Name Role Phone Ramírez Greene MD Primary Care Provider [phone] Encounter Details Date Type Department Care Team (Latest Contact Info) Description 07/27/2023 MyChart Message Enc [facility] Medical Group Multispecialty Care - [place] [address] [place] [address] [address] [place] [address] Ramírez Greene MD 1188 [facility] [address] [place] [address] Follow-up # to hopefully help with your dad's placement in a memory long-term Social History Tobacco Use Types Packs/Day Years [...] CDT Gender Identity Female 04/06/2021 9:17 PM WILDLIFE PHOTOGRAPHER Sexual Orientation Straight 04/06/2021 9: 17 PM WILDLIFE PHOTOGRAPHER documented as of this encounter Plan of Treatment Upcoming Encounters Date Type Department Care Team (Late st Contact Info) Description 12/19/2024 2:[address] [facility] [place] [address] Henry Weeks MD Three [facility] [address] [place] [address] 02/08/2025 1:30 PM CDT Office Visit [facility] THREE [facility], [address] [place] [address] Cash López MD Three [facility]. [address] [place] [address] 03/06/2025 8:40 AM WILDLIFE PHOTOGRAPHER Office Visit [facility] Medical Group Multispecialty Care - [place] [address] [address] [place] [address] Ramírez Greene MD [address] [place] [address] 03/11/2025 12:15 PM WILDLIFE PHOTOGRAPHER Office Visit [facility] [address] Henry Weeks MD Three [facility], [address] [place] [address] documented as of this encounter Visit Diagnoses Not on filedocumented in this encounter Additional Health Concerns Assessment Noted Time PHQ-9 Depression Total Score: 15 04/2 024 4:35 PM CDT documented as of this encounter Care Teams Butcher Supervisor Relationship Specialty Start Date End Date Ramírez Greene MD [address] [place] [address] PCP - General INTERNAL MEDICINE 11/18/20 documented as of this encounter
--- OUTSIDE RECORDS SUMMARY | 2024-12-14 20:26 | XMS_ITS | Encounter Summary ---
Author Organization [facility] Address [address] [place] [address] Care Team Providers Care Line Construction Engineer Name Role Phone Ramírez Greene MD Primary Care Provider [phone] Encounter Details Date Type Department Care Team (Latest Contact Info) Description 12/26/2020 MyChart Message Enc [facility] Medical Group Multispecialty Care - [place] [address] [place] [address] [address] [place] [address] Ramírez Greene MD 1188 [facility] [address] [place], [place] [id number] RE: Medication Questions Social History Tobacco Use [...] CDT Gender Identity Female 04/06/2021 9:17 PM BLASTING MACHINE OPERATOR Sexual Orientation Straight 04/06/2021 9: 17 PM BLASTING MACHINE OPERATOR COVID-19 Exposure Response Date Recorded In the last month, have you been in contact with someone who was confirmed or suspected to have Coronavirus / COVID-19? No / Unsure 12/16/2020 2:18 PM CDT documented as of this encounter Plan of Treatment Upcoming Encounters Date Type Department Care Team (Late st Contact Info) Description 12/19/2024 2:00 PM CDT Appointment [facility] [place] [address] Henry Weeks MD [address] [place] [address] 02/08/2025 1:30 PM CDT Office Visit [facility] THREE [facility], [address] [place] [address] Cash López MD Three [facility]. [address] [place] [address] 03/06/2025 8:40 AM BLASTING MACHINE OPERATOR Office Visit [facility] Medical [facility] Multispecialty Care - [place] [address] [address] [place] [address] Ramí[place] [address] [place] [address] [address] [place] [address] 03/11/2025 12:15 PM BLASTING MACHINE OPERATOR Office Visit [facility] [place] [address] Henry Weeks MD [address] [place] [address] documented as of this encounter Visit Diagnoses Not on filedocumented in this encounter Additional Health Concerns Infection Onset Date Last Indicated Resolved Time COVID-19 Rule Out 02/18/2021 02/18/2021 02/18/2021 4:21 PM CDT COVID-19 Rule Out 03/23/2021 03/23/2021 03/25/2021 1:17 AM BLASTING MACHINE OPERATOR COVID-19 Rule Out 01/25/2022 01/25/2022 01/25/2022 12:34 PM CDT COVID-19 Rule Out 01/25/2022 01/25/2022 01/26/2022 3:16 PM CDT Assessment Noted Time PHQ-9 Depression Total Score: 2 12/17/19 2:34 PM CDT documented as of this encounter Care Teams Line Construction Engineer Relationship Specialty Start Date End Date Ramírez Greene MD [facility] [address] [address] PCP - General INTERNAL MEDICINE 11/18/20 documented as of this encounter
--- OUTSIDE RECORDS SUMMARY | 2024-12-14 20:26 | XMS_ITS | Encounter Summary ---
Author Organization [facility] Address [address] [place] [address] Care Team Providers Care Manufacturing Engineering Technologist Name Role Phone Ramírez Greene MD Primary Care Provider [phone] Encounter Details Date Type Department Care Team (Late st Contact Info) Description 12/29/2021 [place]udge Message Enc [facility] Medical Group Multispecialty Care - [address] [place] [address] [facility] Provider Results Social History Tobacco Use [...] Gender Identity Female 04/06/2021 9:17 PM DIRECTOR OF ROOMS Sexual Orientation Straight 04/06/2021 9: 17 PM DIRECTOR OF ROOMS documented as of this encounter Plan of Treatment Upcoming Encounters Date Type Department Care Team (Late st Contact Info) Description 12/19/2024 2:00 PM CDT Appointment [facility] [place] [place] [address] Henry Weeks MD Three [facility] [address] [place] [address] 02/08/2025 1:30 PM CDT Office Visit [facility] THREE [facility], [address] [place] [address] Cash López MD Three [facility]. [facility] [address] [place] [address] 03/06/2025 8:40 AM DIRECTOR OF ROOMS Office Visit [facility] Medical Group Multispecialty Care - [place] [address] [address] [place] [address] Ramírez Greene MD [address] [address] 03/11/2025 12:15 PM DIRECTOR OF ROOMS Office Visit [facility] [address] Henry Weeks MD Three [facility], [facility] [address] [place] [address] documented as of this encounter Visit Diagnoses Not on filedocumented in this encounter Additional Health Concerns Infection Onset Date Last Indicated Resolved Time COVID-19 Rule Out 01/25/2022 01/25/2022 01/25/2022 12:34 PM CDT COVID-19 Rule Out 01/25/2022 01/25/2022 01/26/2022 3:16 PM CDT Assessment Noted Time PHQ-9 Depression Total Score: 1 07/21/19 22 2:35 PM CDT documented as of this encounter Care Teams Manufacturing Engineering Technologist Relationship Specialty Start Date End Date Ramírez Greene MD [address] [place] [address] PCP - General INTERNAL MEDICINE 11/18/20 documented as of this encounter
--- OUTSIDE RECORDS SUMMARY | 2024-12-14 20:26 | XMS_ITS | Encounter Summary ---
Author Organization [facility] Address [address] [place] [address] Care Team Providers Care Mobile Lounge Driver Name Role Phone Ramírez Greene MD Primary Care Provider [phone] Encounter Details Date Type Department Care Team (Late st Contact Info) Description 12/04/2024 MyChart Message Enc [facility] Medical Group Multispecialty Care - [place] [address] [address] [place], [place] [phone] Ramí[place] [address] [place] [address] [address] [place], [place] [phone] [employer] Social History Tobacco Use Types Packs/Day [...] CDT Gender Identity Female 04/06/2021 9:17 PM CONTROL MANAGER Sexual Orientation Straight 04/06/2021 9: 17 PM CONTROL MANAGER documented as of this encounter Functional Status [...] Info) Description 12/19/2024 2:00 PM CDT Appointment [facility] [place] [address] Henry Weeks MD Three [facility]., [address] [place] [address] 02/08/2025 1:30 PM CDT Office Visit [facility], [facility] [address] [place] [address] Cash López MD [facility]. [facility] [address] [place] [address] 03/06/2025 8:40 AM CONTROL MANAGER Office Visit [facility] Medical Group Multispecialty Care - [place] [address] [address] [place] [address] Ramírez Greene MD [address] [place] [address] 03/11/2025 12:15 PM CONTROL MANAGER Office Visit [facility] [address] Henry Weeks MD Three [facility], [address] [place] [address] documented as of this encounter Visit Diagnoses Not on filedocumented in this encounter Additional Health Concerns Assessment Noted Time PHQ-9 Depression Total Score: 4 12/05/19 25 8:33 AM CDT documented as of this encounter Care Teams Mobile Lounge Driver Relationship Specialty Start Date End Date Ramírez Greene MD 1188 [facility] [address] [place] [address] PCP - General INTERNAL MEDICINE 11/18/20 documented as of this encounter
--- OUTSIDE RECORDS SUMMARY | 2024-12-14 20:26 | XMS_ITS | Encounter Summary ---
Author Organization [facility] Address [address] [place] [address] Care Team Providers Care Bulk Pallet Builder Name Role Phone Ramírez Greene MD Primary Care Provider [phone] Encounter Details Date Type Department Care Team (Latest Contact Info) Description 12/02/2022 MyChart Message Enc [facility] Medical Group Multispecialty Care - [place] [address] [place] [address] [address] [place], [place] [phone] Ramírez Greene MD 1188 [facility] [address] [place], [place] [phone] Rosacea medication Social History Tobacco Use Types [...] CDT Gender Identity Female 04/06/2021 9:17 PM FRONT OFFICE DIRECTOR Sexual Orientation Straight 04/06/2021 9: 17 PM FRONT OFFICE DIRECTOR documented as of this encounter Plan of Treatment Upcoming Encounters Date Type Department Care Team (Late st Contact Info) Description 12/19/2024 2:00 PM CDT Appointment [facility] [place] [place] [address] Henry Weeks MD Three [facility], [address] [place] [address] 02/08/2025 1:30 PM CDT Office Visit [facility] THREE [facility], [address] [place] [address] Cash López MD Three [facility]. [address] [place] [address] 03/06/2025 8:40 AM FRONT OFFICE DIRECTOR Office Visit [facility] Medical Group Multispecialty Care - [address] [place] [address] Ramírez Greene MD 1188 [facility] [address] [place] [address] 03/11/2025 12:15 PM FRONT OFFICE DIRECTOR Office Visit [facility] [place] [address] Henry Weeks MD Three [facility], [address] [place] [address] documented as of this encounter Visit Diagnoses Not on filedocumented in this encounter Additional Health Concerns Assessment Noted Time PHQ-9 Depression Total Score: 3 11/20/19 23 9:52 AM CDT documented as of this encounter Care Teams Bulk Pallet Builder Relationship Specialty Start Date End Date [place] [address] [place] [address] [address] [place], [place] [phone] PCP - General INTERNAL MEDICINE 11/18/20 documented as of this encounter
--- OUTSIDE RECORDS SUMMARY | 2024-12-14 20:26 | XMS_ITS | Encounter Summary ---
Author Organization [facility] Address [address] [place] [address] Care Team Providers Care Safety Relief Valve Technician Name Role Phone Ramírez Greene MD Primary Care Provider [phone] Encounter Details Date Type Department Care Team (Late st Contact Info) Description 12/29/2021 Cyzone Message Enc [facility] Medical Group Multispecialty Care - [address] [place] [address] [facility], [facility] Provider Test result Social History Tobacco Use [...] CDT Gender Identity Female 04/06/2021 9:17 PM DISTRIBUTION SYSTEMS SERVICEPERSON Sexual Orientation Straight 04/06/2021 9: 17 PM DISTRIBUTION SYSTEMS SERVICEPERSON documented as of this encounter Plan of Treatment Upcoming Encounters Date Type Department Care Team (Late st Contact Info) Description 12/19/2024 2:00 PM CDT Appointment [facility] [place] [place] [address] Henry Weeks MD Three [facility] [address] [place] [address] 02/08/2025 1:30 PM CDT Office Visit [facility] THREE [facility], [address] [place] [address] Cash López MD Three [facility]. [address] [place] [address] 03/06/2025 8:40 AM DISTRIBUTION SYSTEMS SERVICEPERSON Office Visit [facility] Medical Group Multispecialty Care - [place] [address] [address] [place] [address] Ramírez Greene MD [address] [address] 03/11/2025 12:15 PM DISTRIBUTION SYSTEMS SERVICEPERSON Office Visit [facility] [address] Henry Weeks MD Three [facility], [address] [place] [address] documented as of this encounter Visit Diagnoses Not on filedocumented in this encounter Additional Health Concerns Infection Onset Date Last Indicated Resolved Time COVID-19 Rule Out 01/25/2022 01/25/2022 01/25/2022 12:34 PM CDT COVID-19 Rule Out 01/25/2022 01/25/2022 01/26/2022 3:16 PM CDT Assessment Noted Time PHQ-9 Depression Total Score: 1 07/21/19 22 2:35 PM CDT documented as of this encounter Care Teams Safety Relief Valve Technician Relationship Specialty Start Date End Date Ramí[place] [address] [place] [address] PCP - General INTERNAL MEDICINE 11/18/20 documented as of this encounter
--- OUTSIDE RECORDS SUMMARY | 2024-12-14 20:26 | XMS_ITS | Encounter Summary ---
Author Organization [facility] Address [address] [place] [address] Care Team Providers Care Metallurgical Tester Name Role Phone Ramírez Greene MD Primary Care Provider [phone] Encounter Details Date Type Department Care Team (Latest Contact Info) Description 06/06/2023 Ismolehart Message Enc [facility] Medical Group Multispecialty Care - [place] [address] [place] [address] [address] [place] [address] Ramírez Greene MD 1188 [facility] 157 [place], [place] [id number] Question about prescriptions Social History Tobacco Use [...] CDT Gender Identity Female 04/06/2021 9:17 PM GRAPPLE CREW LEADER Sexual Orientation Straight 04/06/2021 9: 17 PM GRAPPLE CREW LEADER documented as of this encounter Plan of Treatment Upcoming Encounters Date Type Department Care Team (Late st Contact Info) Description 12/19/2024 2:00 PM CDT Appointment [facility] [place] [address] Henry Weeks MD Three [facility] [address] [place] [address] 02/08/2025 1:30 PM CDT Office Visit [facility] THREE [facility], [address] [place] [address] Cash López MD Three [facility]. [address] [place] [address] 03/06/2025 8:40 AM GRAPPLE CREW LEADER Office Visit [facility] Medical Group Multispecialty Care - [place] [address] [address] [place] [address] Ramírez Greene MD 1188 [facility] 157 [place] [address] 03/11/2025 12:15 PM GRAPPLE CREW LEADER Office Visit [facility] [place] [address] Henry Weeks MD Three [facility], [address] [place] [address] documented as of this encounter Visit Diagnoses Not on filedocumented in this encounter Additional Health Concerns Assessment Noted Time PHQ-9 Depression Total Score: 3 11/20/19 23 9:52 AM CDT documented as of this encounter Care Teams Metallurgical Tester Relationship Specialty Start Date End Date Ramí[place] [address] [place] [address] 157 [place] [address] PCP - General INTERNAL MEDICINE 11/18/20 documented as of this encounter
--- OUTSIDE RECORDS SUMMARY | 2024-12-14 20:26 | XMS_ITS | Encounter Summary ---
Author Organization [facility] Address [address] [place] [address] Care Team Providers Care Rn Care Transition Name Role Phone Ramírez Grenee MD Primary Care Provider [phone] Encounter Details Date Type Department Care Team (Late st Contact Info) Description 04/28/2024 MyChart Message Enc [facility] Medical Group Multispecialty Care - [place] [address] [place] [address] [address] [place], [place] [id number] Ramírez Greene MD 1188 [facility] 157 [place], [place] [id number] Colonoscopy Social History Tobacco Use Types Packs/Day [...] CDT Gender Identity Female 04/06/2021 9:17 PM MAIL AGENT Sexual Orientation Straight 04/06/2021 9: 17 PM MAIL AGENT documented as of this encounter Plan of Treatment Upcoming Encounters Date Type Department Care Team (Late st Contact Info) Description 12/19/2024 2:00 PM CDT Appointment [facility] [place] [address] Henry Weeks MD Three [facility], [address] [place] [address] 02/08/2025 1:30 PM CDT Office Visit [facility] THREE [facility], [address] [place] [address] Cash López MD Three [facility]. [address] [place] [address] 03/06/2025 8:40 AM MAIL AGENT Office Visit [facility] Medical Group Multispecialty Care - [place] [address] [address] [place] [address] Ramírez Greene MD 1188 [facility] 157 [place] [address] 03/11/2025 12:15 PM MAIL AGENT Office Visit [facility] [place] [address] Henry Weeks MD Three [facility], [address] [place] [address] documented as of this encounter Visit Diagnoses Not on filedocumented in this encounter Additional Health Concerns Assessment Noted Time PHQ-9 Depression Total Score: 13 024 7:43 AM CDT documented as of this encounter Care Teams Rn Care Transition Relationship Specialty Start Date End Date Ramí[place] [address] [place] [address] 157 [place], [place] [id number] PCP - General INTERNAL MEDICINE 11/18/20 documented as of this encounter
--- OUTSIDE RECORDS SUMMARY | 2024-12-14 20:26 | XMS_ITS | Encounter Summary ---
Author Organization [facility] Address [address] [place] [address] Care Team Providers Care Band And Cuff Cutter Name Role Phone Ramírez Greene MD Primary Care Provider [phone] Encounter Details Date Type Department Care Team (Latest Contact Info) Description 12/26/2020 MyChart Message Enc [facility] Medical Group Multispecialty Care - [place] [address] [place] [address] [address] [place] [address] Ramírez Greene MD 1188 [facility] 157 [place], [place] [id number] RE:medication question Social History Tobacco Use Types [...] CDT Gender Identity Female 04/06/2021 9:17 PM STONEWORKING SANDER Sexual Orientation Straight 04/06/2021 9: 17 PM STONEWORKING SANDER COVID-19 Exposure Response Date Recorded In the last month, have you been in contact with someone who was confirmed or suspected to have Coronavirus / COVID-19? No / Unsure 12/16/2020 2:18 PM CDT documented as of this encounter Plan of Treatment Upcoming Encounters Date Type Department Care Team (Late st Contact Info) Description 12/19/2024 2:00 PM CDT Appointment [facility] [place] [address] Henry Weeks MD [address] [place] [address] 02/08/2025 1:30 PM CDT Office Visit [facility] THREE [facility], [address] [place] [address] Cash López MD Three [facility]. [address] [place] [address] 03/06/2025 8:40 AM STONEWORKING SANDER Office Visit [facility] Medical Group Multispecialty Care - [place] [address] [address] [place] [address] Ramí[place] [address] [place] [address] [address] [place] [address] 03/11/2025 12:15 PM STONEWORKING SANDER Office Visit [facility] [place] [address] Henry Weeks MD [address] [place] [address] documented as of this encounter Visit Diagnoses Not on filedocumented in this encounter Additional Health Concerns Infection Onset Date Last Indicated Resolved Time COVID-19 Rule Out 02/18/2021 02/18/2021 02/18/2021 4:21 PM CDT COVID-19 Rule Out 03/23/2021 03/23/2021 03/25/2021 1:17 AM STONEWORKING SANDER COVID-19 Rule Out 01/25/2022 01/25/2022 01/25/2022 12:34 PM CDT COVID-19 Rule Out 01/25/2022 01/25/2022 01/26/2022 3:16 PM CDT Assessment Noted Time PHQ-9 Depression Total Score: 2 12/17/19 2:34 PM CDT documented as of this encounter Care Teams Band And Cuff Cutter Relationship Specialty Start Date End Date Ramírez Greene MD [facility] [address] PCP - General INTERNAL MEDICINE 11/18/20 documented as of this encounter
--- OUTSIDE RECORDS SUMMARY | 2024-12-14 20:27 | XMS_ITS | Encounter Summary ---
Author Organization [facility] Address [address] [place] [address] Care Team Providers Care Staffing Analyst Name Role Phone Ramírez Greene MD Primary Care Provider Encounter Details Date Type Department Care Team (Latest Contact Info) Description 03/31/2021 [place] Storaget Message Enc [facility] Medical Group Multispecialty Care - [place] [address] [place] [address] [address] [place] [address] Ramírez Greene MD 1188 [facility] [address] [place], [place] [phone] Urology Referral Social History Tobacco Use Types [...] CDT Gender Identity Female 04/06/2021 9:17 PM MANAGER RN CASE Sexual Orientation Straight 04/06/2021 9: 17 PM MANAGER RN CASE COVID-19 Exposure Response Date Recorded In the last month, have you been in contact with someone who was confirmed or suspected to have Coronavirus / COVID-19? No / Unsure 04/01/2021 9:16 AM MANAGER RN CASE documented as of this encounter Plan of Treatment Upcoming Encounters Date Type Department Care Team (Late st Contact Info) Description 12/19/2024 2:00 PM CDT Appointment [facility] [address] [facility] [place] [address] Henry Weeks MD [address] [place] [address] 02/08/2025 1:30 PM CDT Office Visit [facility] THREE [facility] [address] [address] [place] [address] Cash López MD [address] [facility] [address] [place] [address] 03/06/2025 8:40 AM MANAGER RN CASE Office Visit [facility] Medical Group Multispecialty Care - [address] [place] [address] Ramí[place] [address] [place] [address] [address] [place] [address] 03/11/2025 12:15 PM MANAGER RN CASE Office Visit [facility] [place] [address] Henry Weeks MD [address] [place] [address] documented as of this encounter Visit Diagnoses Not on filedocumented in this encounter Additional Health Concerns Infection Onset Date Last Indicated Resolved Time COVID-19 Rule Out 01/25/2022 01/25/2022 01/25/2022 12:34 PM CDT COVID-19 Rule Out 01/25/2022 01/25/2022 01/26/2022 3:16 PM CDT Assessment Noted Time PHQ-9 Depression Total Score: 2 12/17/19 2:34 PM CDT documented as of this encounter Care Teams Staffing Analyst Relationship Specialty Start Date End Date Ramírez Greene MD [facility] [address] PCP - General INTERNAL MEDICINE 11/18/20 documented as of this encounter
--- OUTSIDE RECORDS SUMMARY | 2024-12-14 20:27 | XMS_ITS | Encounter Summary ---
Author Organization [facility] Address [address] [place] [address] Care Team Providers Care Facilities Manager Name Role Phone Ramírez Greene MD Primary Care Provider [phone] Reason for Visit * Reason Onset Date Comments Appointment Request 08/30/2024 Encounter Details Date Type Department Care Team (Late st Contact Info) Description 08/30/2024 Wizzard Softwaret Message Enc [facility] Medical Group Multispecialty Care - [place] [address] [address] [place], [place] [address] Ramírez Greene MD [address] [place] [address] 157 [place] [address] Atrial flutters Social History Tobacco [...] CDT Gender Identity Female 04/06/2021 9:17 PM VMWARE ARCHITECT Sexual Orientation Straight 04/06/2021 9: 17 PM VMWARE ARCHITECT documented as of this encounter Progress Notes * Jessica Cook MA - 08/30/2024 4:16 PM CDT I called pt to schedule no answer. LVM dr. Greene requests pt comes in at 11:40 am on 08/31. documented in this encounter Plan of Treatment Upcoming Encounters Date Type Department Care Team (Late st Contact Info) Description 12/19/2024 2:00 PM CDT Appointment [facility] [address] [facility] [address] Henry Weeks MD [address] [place] [address] 02/08/2025 1:30 PM CDT Office Visit [facility] [facility], [address] [place] [address] Cash López MD [address] [place] [address] 03/06/2025 8:40 AM VMWARE ARCHITECT Office Visit [facility] Medical Group Multispecialty Care - [place] [address] [address] [place] [address] Ramírez Greene MD [address] [place] [address] 157 [place] [address] 03/11/2025 12:15 PM VMWARE ARCHITECT Office Visit [facility] [place] [address] Henry Weeks MD Three [facility] [address] [place] [address] documented as of this encounter Visit Diagnoses Not on filedocumented in this encounter Additional Health Concerns Assessment Noted Time PHQ-9 Depression Total Score: 9 06/01/19 25 3:13 PM VMWARE ARCHITECT documented as of this encounter Care Teams Facilities Manager Relationship Specialty Start Date End Date Ramírez Greene MD [address] [address] PCP - General INTERNAL MEDICINE 11/18/20 documented as of this encounter
--- OUTSIDE RECORDS SUMMARY | 2024-12-14 20:27 | XMS_ITS | Encounter Summary ---
Author Organization [facility] Address [address] [place] [address] Care Team Providers Care Solar Energy Systems Designer Name Role Phone Ramírez Greene MD Primary Care Provider [phone] Encounter Details Date Type Department Care Team (Late st Contact Info) Description 02/06/2020 MyChart Message Enc [facility] Medical Group Multispecialty Care - [facility] 3 [facility], [address] [place] [phone] Holger Hill MD [address] [place] [address] RE: Other Social History Tobacco Use Types Packs/Day Years Used Date Smoking Tobacco: Never Smokeless Tobacco: Never Alcohol Use Standard Drinks/Week Comments Yes 0 (1 standard drink = 0.6 oz pur e alcohol) Comments Unknown Sex and Gender Information Value Date Recorded Sex Assigned at Not on file Legal Sex Female 11:10 AM CDT Gender Identity Female 04/06/2021 9:17 PM DRESS FINISHER Sexual Orientation Straight 04/06/2021 9: 17 PM DRESS FINISHER COVID-19 Exposure Response Date Recorded In the last month, have you been in contact with someone who was confirmed or suspected to have Coronavirus / COVID-19? No / Unsure 01/31/2020 2:56 PM CDT documented as of this encounter Plan of Treatment Upcoming Encounters Date Type Department Care Team (Late st Contact Info) Description 12/19/2024 2:00 PM CDT Appointment [facility] [address] [facility] [place] [address] Henry Weeks MD [address] [place] [address] 02/08/2025 1:30 PM CDT Office Visit [facility] [address] [place] [address] Cash López MD Three [facility]. [address] [place] [address] 03/06/2025 8:40 AM DRESS FINISHER Office Visit [facility] Medical Group Multispecialty Care - [address] [place] [address] Ramírez Greene MD [address] [place] [address] 157 [place] [address] 03/11/2025 12:15 PM DRESS FINISHER Office Visit [facility] [address] Henry Weeks MD Three [facility] [address] [place] [address] documented as of this encounter Visit Diagnoses Not on filedocumented in this encounter Additional Health Concerns Infection Onset Date Last Indicated Resolved Time COVID-19 Rule Out 02/18/2021 02/18/2021 02/18/2021 4:21 PM CDT COVID-19 Rule Out 03/23/2021 03/23/2021 03/25/2021 1:17 AM DRESS FINISHER COVID-19 Rule Out 01/25/2022 01/25/2022 01/25/2022 12:34 PM CDT COVID-19 Rule Out 01/25/2022 01/25/2022 01/26/2022 3:16 PM CDT documented as of this encounter Care Teams Solar Energy Systems Designer Relationship Specialty Start Date End Date Ramírez Greene MD [address] [address] PCP - General INTERNAL MEDICINE 11/18/20 documented as of this encounter
--- OUTSIDE RECORDS SUMMARY | 2024-12-14 20:27 | XMS_ITS | Clinical Summary ---
Author Organization [facility] Address [address] [place] [address] Care Team Providers Care Hemmer Chainstitch Name Role Phone Ramírez Greene MD Primary Care Provider [phone] Allergies Active Allergy Reactions Criticality Noted Date [...] (02/09/2021): Added automatically from request for surgery [id number] Essential hypertension 07/02/2020 Anxiety 07/02/2020 Overview (11/18/2020): [...] Description 12/04/2024 8:00 AM CDT [facility] [place] [address] [address] [address] [place] [address] Ramírez Greene MD Physical (Has been fasting ); Weight Problem; Follow Up (Chronic medical issues) 12/04/2024 Results [facility] [place] [address] [address] [address] [place] [address] Ramírez Greene MD URINALYSIS AUTO DIP, MAGNESIUM, CBC W/DIFF AUTOMATED, Additional followed-up results: 4 12/04/2024 MyChart Message Enc [facility] [place] [address] [address] [address] [place] [address] Ramírez Greene MD Zepbound 12/04/2024 Telephone [facility] - [address] [address] Ramírez Greene MD Medication Information 12/04/2024 Travel 2024 11:45 AM CDT Office Visit [facility] [address] [address] Henry Weeks MD Palpitations (Consult) 2024 Telephone [facility] [address] [place] [address] Cristiano Villasenor RMA Schedule Test (Echo & EP Referral) 2024 Travel 09/14/2024 11:20 AM CDT Office Visit [facility] Medical [facility] Multispecialty Care - [place] [address] [place] [address] Ramírez Greene MD Follow Up; Atrial Flutter 09/14/2024 [facility] [place] [address] [place] [address] Ramírez Greene MD EKG WELCHALLEN ACQUIRED, TSH [...] CDT Gender Identity Female 04/06/2021 9:17 PM TELEPHONE AD TAKER Sexual Orientation Straight 04/06/2021 9: 17 PM TELEPHONE AD TAKER Last Filed Vital Signs Vital Sign Reading [...] Info) Description 12/19/2024 2:00 PM CDT Appointment [facility] [place] [address] Henry Weeks MD [facility], [address] [place] [address] 02/08/2025 1:30 PM CDT Office Visit [facility], [facility] [address] [place] [address] Cash López MD Three [facility] [address] [place] [address] 03/06/2025 8:40 AM TELEPHONE AD TAKER Office Visit [facility] Medical Group Multispecialty Care - [address] [place] [address] Ramírez Greene MD [address] [facility] [address] [place] [address] 03/11/2025 12:15 PM TELEPHONE AD TAKER Office Visit [facility] [address] [facility] [address] [place] [address] Henry Weeks MD Three [facility], [address] [place] [address] Health Maintenance Due Date Last Done Comments [...] 04/13/2021 Hepatitis C Completed 11/18/2020 PHQ-2 (Physician [place]) Completed 12/04/2024 Meningococcal B Vaccine Aged Out [...] - 3.740 uIU/ML 12/04/2024 3:26 PM CDT [facility] 12/04/2024 8:33 AM CDT Ramírez Greene MD LABORATORY Final Result [address] [address], [place] [phone] * HEMOGLOBIN, GLYCOSYLATED (12/04/2024 8:33 AM CDT) HGB A1C 5.3 4.5 - 6.2 % 12/04/2024 3:47 PM CDT [facility] ESTIMATED AVG GLUCOSE 105 74 - 106 MG/DL 12/04/2024 3:47 PM CDT [facility] 12/04/2024 8:33 AM CDT Ramírez Greene MD LABORATORY Final Result Performing Organization Address City/[facility]/ZIP Co de Phone Number [facility] [address] [place] [address], [place] [phone] * (ABNORMAL) COMPREHENSIVE METABOLIC PANEL (12/04/2024 8:33 AM CDT) SODIUM S/P/B 143 136 - 145 MMOL/L 12/04/2024 3:26 PM CDT [facility] POTASSIUM S/P/B 3.9 3.5 - 5.1 MMOL/L 12/04/2024 3:26 PM CDT [facility] CHLORIDE S/P/B 104 98 - 107 MMOL/L 12/04/2024 3:26 PM T [facility] CO2 29.7 21 - 32 MMOL/L 12/04/2024 3:26 PM CDT [facility] GLUCOSE 95 70 - 99 MG/DL 12/04/2024 3:26 PM CDT [facility] BUN 15 7 - 18 MG/DL 12/04/2024 3:26 PM CDT [facility] CREATININE S/P/B 1.12(H) 0.55 - 1.02 MG/DL 12/04/2024 3:26 PM [address] [facility] CALCIUM S/P/B 9.7 8.4 - 10.5 MG/DL 12/04/2024 3:26 PM T [facility] BILIRUBIN TOTAL S/P/B 0.5 0.2 - 1.0 MG/DL 12/04/2024 3:26 PM T [facility] ALKALINE PHOSPHATASE S/P/B 94 39 - 100 U/L 12/04/2024 3:26 PM T [facility] AST 12(L) 15 - 37 U/L 12/04/2024 3:26 PM T [facility] ALT 25 14 - 59 U/L 12/04/2024 3:26 PM T [facility] TOTAL PROTEIN S/P/B 7.0 6.4 - 8.2 G/DL 12/04/2024 3:26 PM CDT [facility] ALBUMIN S/P/B 3.8 3.4 - 5.0 G/DL 12/04/2024 3:26 PM CD[address] [facility] ANION GAP 9.3 5 - 15 MMOL/L 12/04/2024 3:26 PM CDT [facility] Comment:REFERENCE RANGE NOT ESTABLISHED OSMOLALITY (CALC) 297 MOSM/KG 025 3:26 PM CDT [facility] Comment:REFERENCE RANGE NOT ESTABLISHED GFR ESTIMATE 61(L) >90 ML/MIN/1. 73 M2 12/04/2024 3:26 PM CDT [facility] GFR NOTES GFR REFERENCE S: 12/04/2024 3:26 PM CDT [facility] Comment: THE ESTIMATED GFR IS [...] CDT Ramírez Greene MD LABORATORY Final Result [facility] [address] [place] [address], * (ABNORMAL) LIPID PANEL (12/04/2024 8:33 AM CDT) CHOLESTEROL 186 <200 MG/DL 12/04/2024 3:26 PM CDT [facility] TRIGLYCERIDES 92 <150 MG/DL 12/04/2024 3:26 PM CDT [facility] HDL 57 >40 MG/DL 12/04/2024 3:26 PM CDT [facility] LDL-C 111(H) <100 MG/DL 12/04/2024 3:26 PM CDT [facility] VLDL CALCULATION 18 5 - 28 MG/DL 12/04/2024 3:26 PM CDT [facility] CHOL/HDL RATIO 3.3 0.0 - 4.0 12/04/2024 3:26 PM CDT [facility] LDL/HDL 1.9 0.41 - 2.13 12/04/2024 3:26 PM CDT [facility] NON HDL CHOLESTEROL 129 <140 MG/DL 12/04/2024 3:26 PM CDT [facility] 12/04/2024 8:33 AM CDT Ramírez Greene MD LABORATORY Final Result [facility] [address] [place] [address], * (ABNORMAL) CBC W/DIFF AUTOMATED (12/04/2024 8:33 AM CDT) WBC 4.91 4.00 - 10.80 x10'3/uL 12/04/2024 2:15 PM CD[address] [facility] RBC 5.04 4.10 - 5.40 x10'6/uL 12/04/2024 2:15 PM CDT [facility] HGB 13.6 12.0 - 16.0 G/DL 12/04/2024 2:15 PM CDT [facility] HCT 42.1 36.0 - 47.0 % 12/04/2024 2:15 PM CD[address] [facility] MCV 83.5 78.0 - 100.0 FL 12/04/2024 2:15 PM [address] [facility] MCH 27.0 27.0 - 31.0 PG 12/04/2024 2:15 PM [address] [facility] MCHC 32.3(L) 33.0 - 36.0 G/DL 12/04/2024 2:15 PM CDT [facility] RDW 13.6 11.5 - 14.5 % 12/04/2024 2:15 PM CD[address] [facility] PLT 303 150 - 350 x10'3/uL 12/04/2024 2:15 PM CDT [facility] MPV 10.8(H) 7.4 - 10.4 FL 12/04/2024 2:15 [address] [facility] DIFFERENTIAL TYPE AUTOMATED DIFFERENTIAL 12/04/2024 2:[address] [facility] NEUTROPHILS % 43.8 % 12/04/2024 2:[address] [facility] LYMPHOCYTES % 42.8 % 12/04/2024 2:[address] [facility] MONOCYTES % 10.4 % 12/04/2024 2:15 PM [address] [facility] EOSINOPHILS % 2.2 % 12/04/2024 2:15 [address] [facility] BASOPHILS % 0.6 % 12/04/2024 2:15 PM [address] [facility] IMMATURE GRANS % 0.2 % 12/04/2024 2:15 PM CD[address] [facility] ABS. NEUTROPHILS 2.15 1.60 - 8.30 x10'3/uL 12/04/2024 2:[address] [facility] ABS. LYMPHOCYTES 2.10 0.80 - 4.70 x10'3/uL 12/04/2024 2:15 PM CDT [facility] ABS. MONOCYTES 0.51 0.00 - 1.50 x10'3/uL 12/04/2024 2:[address] [facility] ABS. EOSINOPHILS 0.11 0.00 - 0.40 x10'3/uL 12/04/2024 2:15 PM [address] [facility] ABS. BASOPHILS 0.03 0.00 - 0.20 x10'3/uL 12/04/2024 2:15 PM CDT [facility] [place] ABS. IMMATURE GRANULOCYTES 0.01 0.00 - 0.03 x10'3/uL 12/04/2024 2:[address] [facility] 12/04/2024 8:33 AM CDT Ramírez Greene MD LABORATORY Final Result Performing Organization Address City/[facility]/ZIP Co de Phone Number [place] [address] [phone] [place] [address], * MAGNESIUM (12/04/2024 8:33 AM CDT) MAGNESIUM 1.8 1.8 - 2.4 MG/DL 12/04/2024 3:[address] [facility] 12/04/2024 8:33 AM CDT Ramírez Greene MD LABORATORY Final Result Performing Organization Address [facility] [place]/[facility] de Phone Number [place] [address] [phone] [place] [address], * (ABNORMAL) URINALYSIS AUTO DIP (12/04/2024) COLOR (U) AAYUSH(A) YELLOW [address], [place] TRANSPARENCY CLOUDY(A) CLEAR [address], [place] GLUCOSE (U) NEGATIVE NEGATIVE MG/DL [address], [place] BILIRUBIN (U) 1+ (SMALL)(A) NEGATIVE [address], [place] KETONES MG/DL (U) 15 (SMALL 1+)(A) NEGATIVE MG/DL [address], [place] SPECIFIC GRAVITY (U) 1.015 1.001 - 1.035 [address], [place] BLOOD (U) NEGATIVE NEGATIVE [address], [place] U PH 7.5 5.0 - 9.0 [address], [place] PROTEIN (U) 1+ (30)(A) NEGATIVE mg/dL [address], [place] UROBILINOGEN 4.0(A) 0.2 - 1.0 EU/dL = mg/dL [address], [place] NITRITES NEGATIVE NEGATIVE MG/DL MG[address], [place] LEUKOCYTES (U) NEGATIVE NEGATIVE MG-[address], [place] URINE SPECIMEN OBTAINED BY CLEAN CATCH PROCEDURE / Unknown 12/04/2024 us Ramírez Greene MD URINE ORDERABLES Final Result [address], [place] [address] [facility] [address] [place] [address], * EVENT RECORDER (ECG) UP TO 30 DAYS COMPLETE (10/17/2024 1:16 PM CDT) Narrative [facility] - 10/17/2024 1:16 PM CDT [address] [place] [address] [address]AMPER REPORT PATIENT NAME: Andria Grajeda : 1975 PCP: RAMÍREZ GREENE MD INTERPRETING WELDER REPAIR: Demetrio Pineda MD INDICATION: Palpitations. Baseline Rhythm [...] CDT) 09/14/2024 12:1 0 PM CDT Narrative [facility] - 09/26/2024 6:10 PM CDT [place] [address] [place] [address] Test Date: 2024-09-14 Pat Name: ANDRIA GRAJEDA Department: 171 Room: Gender: Female General Utility Maintenance Repairer: : 1975 Requested By: RAMÍREZ GREENE Order Number: [id number] Reading MD: Ramírez Greene Measurements Intervals [place] Rate: 77 P: 12 FL: 167 QRS: 11 QRSD: 90 T: 4 QT: 391 QTc: 444 Interpretive Statements SINUS RHYTHM Procedure Note Ramírez Greene MD - 09/26/2024 [place] [address] [place] [address] Test Date: 2024-09-14 Pat Name: ANDRIA HECTORJIMMY Department: 171 Room: Gender: Female General Utility Maintenance Repairer: : 1975 Requested By: RAMÍREZ GREENE Order Number: [id number] Reading MD: Ramírez Greene Measurements Intervals [place] Rate: 77 P: 12 FL: 167 QRS: 11 QRSD: 90 T: 4 QT: 391 QTc: 444 Interpretive Statements SINUS RHYTHM Ramírez Greene MD PROCEDURES-ORDERABLE NO CHARGE F inal Result [facility] * MAMMOGRAM GENERIC (SCAN ORDER) (09/12/2023) Anatomical Region Laterality Modality Other 09/12/2023 [facility] Scanned SCANNING Final Resu lt * OUTSIDE CYTOPATH VAG/CERV PAP WITH HPV (02/06/2021) 02/06/2021 Narrative 02/06/2021 Ordered by an unspecified provider. us Documents Scanned SCANNING Final Result * HEPATITIS C ANTIBODY (11/18/2020 2:52 PM CDT) HEPATITIS C AB NON-REACTI VE NON-REACT MANJU 11/19/2020 2:28 PM CDT [facility] Comment: ANTIBODIES TO HCV NOT DETECTED. DOES NOT EXCLUDE THE POSSIBILITY OF EXPOSURE TO HCV. 11/18/2020 2:52 PM CDT Ramírez Greene MD LABORATORY Final Result [facility] [address] [place] [address], [id number] from Last 3 Months or Most Recently Relevant to Health Maintenance Insurance Care Teams Hemmer Chainstitch Relationship Specialty Start Date End Date Ramírez Greene MD [address] [facility] [address] [place] [address] PCP - General INTERNAL MEDICINE 11/18/20
--- OUTSIDE RECORDS SUMMARY | 2024-12-14 20:27 | XMS_ITS | Encounter Summary ---
Author Organization [facility] Address [address] [place] [address] Care Team Providers Care Graphic Design Teacher Name Role Phone Ramírez Greene MD Primary Care Provider [phone] Encounter Details Date Type Department Care Team (Late st Contact Info) Description 10/12/2022 MyChart Message Enc [facility] Medical Group Multispecialty Care - [place] [address] [address] [place] [address] Ramí[place] [address] [place] [address] [address] [place], [place] [phone] Blood Type Social History Tobacco Use Types [...] CDT Gender Identity Female 04/06/2021 9:17 PM LOGGING CREW FOREMAN Sexual Orientation Straight 04/06/2021 9: 17 PM LOGGING CREW FOREMAN COVID-19 Exposure Response Date Recorded In the last 10 days, have yo u been in contact with someone who was confirmed or suspected to have Coronavirus/COVID-19? No / Unsure 09/22/2022 2:00 PM CDT documented as of this encounter Plan of Treatment Upcoming Encounters Date Type Department Care Team (Late st Contact Info) Description 12/19/2024 2:00 PM CDT Appointment [facility] [address] [facility] [place] [address] Henry Weeks MD Three [facility] [address] [place] [address] 02/08/2025 1:30 PM CDT Office Visit [facility] THREE [facility], [address] [place] [address] Cash López MD Three [facility]. [address] [place] [address] 03/06/2025 8:40 AM LOGGING CREW FOREMAN Office Visit [facility] Medical Group Multispecialty Care - [place] [address] [address] [place], [place] [address] Ramírez Greene MD [address] [place] [address] 03/11/2025 12:15 PM LOGGING CREW FOREMAN Office Visit [facility] [place] [address] Henry Weeks MD Three [facility] [address] [place] [address] documented as of this encounter Visit Diagnoses Not on filedocumented in this encounter Additional Health Concerns Assessment Noted Time PHQ-9 Depression Total Score: 1 07/21/19 22 2:35 PM CDT documented as of this encounter Care Teams Graphic Design Teacher Relationship Specialty Start Date End Date Ramírez Greene MD [address] [place] [address] [address] [place] [address] PCP - General INTERNAL MEDICINE 11/18/20 documented as of this encounter
--- OUTSIDE RECORDS SUMMARY | 2024-12-14 20:27 | XMS_ITS | Encounter Summary ---
Author Organization [facility] Address [address] [place] [address] Care Team Providers Care Sap Hana Architect Name Role Phone Ramírez Greene MD Primary Care Provider [phone] Encounter Details Date Type Department Care Team (Late st Contact Info) Description 01/27/2022 [employer] Message Enc [facility] Medical Group Multispecialty Care - [address] [place] [address] [employer], [facility] Provider strep culture Social History Tobacco [...] CDT Gender Identity Female 04/06/2021 9:17 PM AG EQUIPMENT FIELD SERVICE TECHNICIAN Sexual Orientation Straight 04/06/2021 9: 17 PM AG EQUIPMENT FIELD SERVICE TECHNICIAN documented as of this encounter Plan of Treatment Upcoming Encounters Date Type Department Care Team (Late st Contact Info) Description 12/19/2024 2:00 PM CDT Appointment [facility] [place] [place] [address] Henry Weeks MD Three [facility] [address] [place] [address] 02/08/2025 1:30 PM CDT Office Visit [facility] THREE [facility], [address] [place] [address] Cash López MD Three [facility]. [address] [place] [address] 03/06/2025 8:40 AM AG EQUIPMENT FIELD SERVICE TECHNICIAN Office Visit [facility] Medical Group Multispecialty Care - [place] [address] [address] [place] [address] Ramírez Greene MD [address] [address] 03/11/2025 12:15 PM AG EQUIPMENT FIELD SERVICE TECHNICIAN Office Visit [facility] [address] Henry Weeks MD Three [facility], [address] [place] [address] documented as of this encounter Visit Diagnoses Not on filedocumented in this encounter Additional Health Concerns Assessment Noted Time PHQ-9 Depression Total Score: 1 07/21/19 22 2:35 PM CDT documented as of this encounter Care Teams Sap Hana Architect Relationship Specialty Start Date End Date Ramírez Greene MD [address] [facility] [address] [place] [address] PCP - General INTERNAL MEDICINE 11/18/20 documented as of this encounter
--- OUTSIDE RECORDS SUMMARY | 2024-12-14 20:27 | XMS_ITS | Encounter Summary ---
Author Organization [facility] Address [address] [place] [address] Care Team Providers Care Clinical Research Scientist Name Role Phone Ramírez Greene MD Primary Care Provider [phone] Encounter Details Date Type Department Care Team (Latest Contact Info) Description 02/17/2020 [employer] Message Enc [facility] Medical Group Multispecialty Care - [facility] [address] [facility], [address] [place] [phone] Holger Hill MD [address] [place] [address] Follow Up/Update Social History Tobacco Use [...] CDT Gender Identity Female 04/06/2021 9:17 PM MASONRY INSTALLER Sexual Orientation Straight 04/06/2021 9: 17 PM MASONRY INSTALLER COVID-19 Exposure Response Date Recorded In the last month, have you been in contact with someone who was confirmed or suspected to have Coronavirus / COVID-19? No / Unsure 02/19/2020 12:48 PM CDT documented as of this encounter Plan of Treatment Upcoming Encounters Date Type Department Care Team (Late st Contact Info) Description 12/19/2024 2:00 PM CDT Appointment [facility] [address] [facility] [place] [address] Henry Weeks MD [address] [place] [place] [address] 02/08/2025 1:30 PM CDT Office Visit [facility] [address], [address] [place] [address] Cash López MD Three [facility] [address] [place] [address] 03/06/2025 8:40 AM MASONRY INSTALLER Office Visit [facility] Medical Group Multispecialty Care - [place] [address] [address] [place] [address] Ramí[place] [address] [place] [address] 157 [place] [address] 03/11/2025 12:15 PM MASONRY INSTALLER Office Visit [facility] [place] [address] Henry Weeks MD Three [facility] [address] [place] [address] documented as of this encounter Visit Diagnoses Not on filedocumented in this encounter Additional Health Concerns Infection Onset Date Last Indicated Resolved Time COVID-19 Rule Out 02/18/2021 02/18/2021 02/18/2021 4:21 PM CDT COVID-19 Rule Out 03/23/2021 03/23/2021 03/25/2021 1:17 AM MASONRY INSTALLER COVID-19 Rule Out 01/25/2022 01/25/2022 01/25/2022 12:34 PM CDT COVID-19 Rule Out 01/25/2022 01/25/2022 01/26/2022 3:16 PM CDT documented as of this encounter Care Teams Clinical Research Scientist Relationship Specialty Start Date End Date Ramírez Greene MD [address] [address] PCP - General INTERNAL MEDICINE 11/18/20 documented as of this encounter
--- OUTSIDE RECORDS SUMMARY | 2024-12-14 20:27 | XMS_ITS | Encounter Summary ---
Author Organization [facility] Address [address] [place] [address] Care Team Providers Care Director Sales Support Name Role Phone Ramírez Greene MD Primary Care Provider [phone] Encounter Details Date Type Department Care Team (Late st Contact Info) Description 02/02/2021 RelateIQt Message Enc [facility] Medical Group Multispecialty Care - [facility] 3 [facility], [address] [place] [phone] Holger Hill MD [address] [place] [address] RE: Question Social History Tobacco Use Types [...] CDT Gender Identity Female 04/06/2021 9:17 PM CALL CENTER SPECIALIST Sexual Orientation Straight 04/06/2021 9: 17 PM CALL CENTER SPECIALIST COVID-19 Exposure Response Date Recorded In the last month, have you been in contact with someone who was confirmed or suspected to have Coronavirus / COVID-19? No / Unsure 01/19/2021 2:21 PM CDT documented as of this encounter Plan of Treatment Upcoming Encounters Date Type Department Care Team (Late st Contact Info) Description 12/19/2024 2:00 PM CDT Appointment [facility] [address] [place] [address] Henry Weeks MD [address] [place] [address] 02/08/2025 1:30 PM CDT Office Visit [facility] [address] [place] [address] Cash López MD [address] [place] [address] 03/06/2025 8:40 AM CALL CENTER SPECIALIST Office Visit [facility] Medical Group Multispecialty Care - [place] [address] [address] [place] [address] Ramírez Greene MD [address] [place] [address] [address] [place] [address] 03/11/2025 12:15 PM CALL CENTER SPECIALIST Office Visit [facility] [place] [address] Henry Weeks MD [address] [place] [address] documented as of this encounter Visit Diagnoses Not on filedocumented in this encounter Additional Health Concerns Infection Onset Date Last Indicated Resolved Time COVID-19 Rule Out 02/18/2021 02/18/2021 02/18/2021 4:21 PM CDT COVID-19 Rule Out 03/23/2021 03/23/2021 03/25/2021 1:17 AM CALL CENTER SPECIALIST COVID-19 Rule Out 01/25/2022 01/25/2022 01/25/2022 12:34 PM CDT COVID-19 Rule Out 01/25/2022 01/25/2022 01/26/2022 3:16 PM CDT Assessment Noted Time PHQ-9 Depression Total Score: 2 12/17/19 2:34 PM CDT documented as of this encounter Care Teams Director Sales Support Relationship Specialty Start Date End Date Ramírez Greene MD [address] [address] PCP - General INTERNAL MEDICINE 11/18/20 documented as of this encounter
--- OUTSIDE RECORDS SUMMARY | 2024-12-14 20:27 | XMS_ITS | Clinical Summary ---
Author Organization [address] Address [address] [place] [id number] Care Team Providers Care Credit Adjuster Name Role Phone Ramírez Greene MD Primary Care Provider [phone] Allergies Active Allergy Reactions Criticality Noted Date [...] [facility] [address] [id number] Kayode Rosen NP Primary stabbing headache (Primary Dx) 11/23/[address] [phone] Meagan Ulloa MD Prior Auth 11/21/2024 11:00 AM CDT Office Visit [address] [phone] Meagan Ulloa MD SINAN (obstructive sleep apnea) (Primary Dx); Primary narcolepsy with cataplexy; Cigarette nicotine dependence in remission; BMI 40.0-44.9, adult (HCC); Restless leg; Anxiety 11/21/2024 Orders Only [address] [phone] Meagan Ulloa MD SINAN (obstructive [...] on file Legal Sex Female 8:16 AM [employer] Gender Identity Not on file Sexual Orientation [...] patient's age to complete this topic Insurance [facility] ACCESS CHOICE Care Teams Credit Adjuster Relationship Specialty Start Date End Date Ramírez Greene MD [address] [place], [place] [id number] PCP - General Internal Medicine 11/11/21
== END 2024-12-14 20:47 | disposition home or self-care (01) ==
LOC: ANHED 20:25
PROVIDERS: Emergency Provider Emergency Medicine; PCP Internal Medicine
DX: G43.909 Migraine, unspecified, not intractable, without status migrainosus (principal); I10 Essential (primary) hypertension; G47.33 Obstructive sleep apnea (adult) (pediatric); K58.9 Irritable bowel syndrome, unspecified; K21.9 Gastro-esophageal reflux disease without esophagitis; F41.9 Anxiety disorder, unspecified; F32.A Depression, unspecified; Z97.5 Presence of (intrauterine) contraceptive device; Z87.442 Personal history of urinary calculi; Z87.891 Personal history of nicotine dependence; Z90.49 Acquired absence of other specified parts of digestive tract; Z79.899 Other long term (current) drug therapy; Z79.84 Long term (current) use of oral hypoglycemic drugs
CPT/HCPCS: 70450; 99284